=== PATIENT | male | born 1960 | race American Indian/Alaskan Native ===

== ENCOUNTER 2016-06-20 18:09 | Inpatient (IN) | payer MEDICAID ==
[2016-06-20 18:09] VITALS: BMI 25.8
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
[2016-06-20 19:13] LABS: BASO # 0.1 K/uL (0.0-0.2); BASO % 1.3 % (0.0-2.0); EOS # 0.1 K/uL (0.0-0.7); EOS % 1.5 % (0.0-4.0); HEMATOCRIT 35.4 % (35.0-51.0); LYMPH # 2.4 K/uL (1.0-4.3); LYMPH % 30.5 % (20.0-40.0); MEAN CELL VOLUME 93.7 fL (80.0-94.0); MEAN CORPUSCULAR HEMOGLOBIN 31.4 pg (27.0-31.0); MEAN CORPUSCULAR HGB CONC 33.5 g/dL (33.0-37.0); MONO # 1.2 K/uL (0.0-0.8); MONO % 14.8 % (0.0-10.0); RED CELL DISTRIBUTION WIDTH 14.3 % (11.5-14.5); WHITE BLOOD COUNT 7.9 K/uL (4.8-10.8)
[2016-06-20 19:29] LABS: INR 0.9
[2016-06-20 19:57] LABS: CHLORIDE 100 mmol/L (98-107)
[2016-06-20 19:58] LABS: POTASSIUM 3.4 mmol/L (3.6-5.2); SODIUM 147 mmol/L (132-148)
[2016-06-20 20:00] LABS: ALB/GLOB RATIO 1.2 (1.0-2.1); ALKALINE PHOSPHATASE 69 U/L (38-126); AST/SGOT 144 U/L (17-59); BILIRUBIN,TOTAL 0.3 mg/dL (0.2-1.3); BLOOD UREA NITROGEN 14 mg/dL (9-20); CARBON DIOXIDE 27 mmol/L (22-30); GFR AFRICAN-AMERICAN > 60
[2016-06-20 20:01] LABS: ALT/SGPT 144 U/L (21-72); CALCIUM 8.7 mg/dl (8.6-10.4); GLUCOSE,RANDOM 99 mg/dL (75-110)
[2016-06-20] MEDS ORDERED: Silver Sulfadiazine 1% Cream (20 gm) ONE (21:32)
[2016-06-20 21:38] LABS: ALCOHOL SERUM 60 mg/dl (0-10)
[2016-06-20] MEDS ORDERED: Silver Sulfadiazine 1% Cream (20 gm) TOP STA (22:07)
[2016-06-21] MEDS: HYDROmorphone 1 mg/ml ISec IVP PRN ×6 (00:01→22:36)
[2016-06-21] MEDS: Ciprofloxacin 400mg/200ml D5W 200 ML IVPB SCH ×3 (00:43→22:40)
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
[2016-06-21 08:34] LABS: CHLORIDE 100 mmol/L (98-107)
[2016-06-21 08:35] LABS: POTASSIUM 3.1 mmol/L (3.6-5.2); SODIUM 143 mmol/L (132-148)
[2016-06-21 08:37] LABS: ALB/GLOB RATIO 1.1 (1.0-2.1); AST/SGOT 83 U/L (17-59); BILIRUBIN,TOTAL < 0.1 mg/dL (0.2-1.3); CARBON DIOXIDE 31 mmol/L (22-30); GFR AFRICAN-AMERICAN > 60; TOTAL PROTEIN 6.1 g/dL (6.3-8.3)
[2016-06-21 08:38] LABS: ALKALINE PHOSPHATASE 108 U/L (38-126); ALT/SGPT 117 U/L (21-72); BLOOD UREA NITROGEN 18 mg/dL (9-20); CALCIUM 8.2 mg/dl (8.6-10.4); GLUCOSE,RANDOM 94 mg/dL (75-110); MAGNESIUM 1.8 mg/dL (1.6-2.3)
--- NOTE | 2016-06-21 09:19 | RAD ---
PROCEDURE: CHEST RADIOGRAPH, 1 VIEW HISTORY: Chest pain COMPARISON: 05/22/2016 FINDINGS: LUNGS: The lungs are clear. PLEURA: No pneumothorax or pleural fluid seen. CARDIOVASCULAR: The heart is normal in size. The hilar and mediastinal configuration is normal. OSSEOUS STRUCTURES: No significant abnormalities. VISUALIZED UPPER ABDOMEN: Normal. OTHER FINDINGS: None. IMPRESSION: No active pulmonary disease.
[2016-06-21] MEDS ORDERED: Potassium Chloride 20 mEq ER Tab PO ONE (11:15)
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
[2016-06-21 14:34] LABS: BASO % 0.4 % (0.0-2.0); EOS # 0.2 K/uL (0.0-0.7); EOS % 3.2 % (0.0-4.0); HEMATOCRIT 30.3 % (35.0-51.0); LYMPH # 2.2 K/uL (1.0-4.3); LYMPH % 35.5 % (20.0-40.0); MEAN CELL VOLUME 94.2 fL (80.0-94.0); MEAN CORPUSCULAR HEMOGLOBIN 32.6 pg (27.0-31.0); MEAN CORPUSCULAR HGB CONC 34.6 g/dL (33.0-37.0); MEAN PLATELET VOLUME 6.8 fL (7.2-11.7); MONO # 0.8 K/uL (0.0-0.8); MONO % 12.4 % (0.0-10.0); WHITE BLOOD COUNT 6.1 K/uL (4.8-10.8)
[2016-06-21] MEDS: Silver Sulfadiazine 1% Cream (20 gm) TOP SCH (18:00)
[2016-06-22] MEDS: HYDROmorphone 1 mg/ml ISec IVP PRN ×3 (06:40→20:15)
[2016-06-22] MEDS ORDERED: Potassium Chloride 20 mEq ER Tab PO ONE ×2 (09:45→11:00)
[2016-06-22] MEDS: Silver Sulfadiazine 1% Cream (20 gm) TOP SCH ×2 (10:06→18:00)
[2016-06-22] MEDS ORDERED: Midazolam 2 MG/2 ML VIAL ONE (11:07)
[2016-06-22] MEDS ORDERED: Propofol 10 mg/ml Inj (20 ML) ONE (11:08)
[2016-06-22] MEDS ORDERED: Lactated Ringer's 1,000 ML IV ONE ×2 (11:15→12:45)
[2016-06-22] MEDS: Ciprofloxacin 400mg/200ml D5W 200 ML IVPB SCH ×2 (11:30→22:48)
--- NOTE | 2016-06-22 12:39 | CARD ---
APPROVED REPORT EKG Measurement Heart [id number] <Conclusion> Normal sinus rhythm Normal ECG
[2016-06-22] MEDS: HYDROmorphone 0.5 mg/0.5 ml ISec IVP PRN ×3 (12:57→13:34)
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
[2016-06-22] MEDS: Lactated Ringer's 1,000 ML IV SCH ×2 (15:14→20:30)
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
[2016-06-23] MEDS: HYDROmorphone 1 mg/ml ISec IVP PRN ×5 (00:24→20:50)
[2016-06-23] MEDS: Lactated Ringer's 1,000 ML IV SCH ×3 (04:26→20:15)
[2016-06-23 07:41] LABS: BASO % 0.4 % (0.0-2.0); EOS # 0.2 K/uL (0.0-0.7); EOS % 3.5 % (0.0-4.0); HEMATOCRIT 32.3 % (35.0-51.0); LYMPH # 2.3 K/uL (1.0-4.3); LYMPH % 34.6 % (20.0-40.0); MEAN CELL VOLUME 94.5 fL (80.0-94.0); MEAN CORPUSCULAR HEMOGLOBIN 32.7 pg (27.0-31.0); MEAN CORPUSCULAR HGB CONC 34.6 g/dL (33.0-37.0); MEAN PLATELET VOLUME 6.8 fL (7.2-11.7); MONO # 0.6 K/uL (0.0-0.8); MONO % 8.5 % (0.0-10.0); RED CELL DISTRIBUTION WIDTH 13.7 % (11.5-14.5); WHITE BLOOD COUNT 6.8 K/uL (4.8-10.8)
[2016-06-23 07:46] LABS: CHLORIDE 99 mmol/L (98-107)
[2016-06-23 07:47] LABS: POTASSIUM 4.2 mmol/L (3.6-5.2); SODIUM 140 mmol/L (132-148)
[2016-06-23 07:49] LABS: ALB/GLOB RATIO 1.1 (1.0-2.1); BILIRUBIN,TOTAL < 0.1 mg/dL (0.2-1.3); CARBON DIOXIDE 30 mmol/L (22-30); GFR AFRICAN-AMERICAN > 60; TOTAL PROTEIN 5.8 g/dL (6.3-8.3)
[2016-06-23 07:50] LABS: ALKALINE PHOSPHATASE 81 U/L (38-126); ALT/SGPT 93 U/L (21-72); AST/SGOT 59 U/L (17-59); BLOOD UREA NITROGEN 13 mg/dL (9-20); CALCIUM 7.9 mg/dl (8.6-10.4); GLUCOSE,RANDOM 96 mg/dL (75-110)
[2016-06-23] MEDS: Silver Sulfadiazine 1% Cream (20 gm) TOP SCH ×2 (09:17→18:00)
[2016-06-23] MEDS: Ciprofloxacin 400mg/200ml D5W 200 ML IVPB SCH ×2 (11:20→22:54)
[2016-06-23] MEDS ORDERED: Propofol 10 mg/ml Inj (20 ML) ONE (14:00)
[2016-06-23] MEDS ORDERED: Midazolam 2 MG/2 ML VIAL ONE (14:00)
[2016-06-23] MEDS ORDERED: Pneumococcal 23-Valent Vaccine IM ONE (14:00)
[2016-06-23] MEDS ORDERED: Influenza Virus Vaccine 45 mcg/0.5 ml Syr IM ONE (14:00)
[2016-06-23] MEDS ORDERED: Lactated Ringer's 1,000 ML IV ONE (14:20)
[2016-06-23] MEDS ORDERED: Phenylephrine 10 mg/ml Inj ONE (14:49)
[2016-06-23] MEDS ORDERED: ePHEDrine 50 mg/ml Inj ONE (14:49)
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
[2016-06-23] MEDS ORDERED: HYDROmorphone 0.5 mg/0.5 ml ISec ONE (15:16)
[2016-06-23] MEDS: HYDROmorphone 0.5 mg/0.5 ml ISec IVP PRN ×3 (15:18→15:45)
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
[2016-06-24] MEDS: HYDROmorphone 1 mg/ml ISec IVP PRN ×5 (00:54→22:30)
[2016-06-24] MEDS: Lactated Ringer's 1,000 ML IV SCH ×4 (04:35→20:35)
[2016-06-24 06:41] LABS: BASO # 0.1 K/uL (0.0-0.2); BASO % 0.7 % (0.0-2.0); EOS # 0.3 K/uL (0.0-0.7); EOS % 3.3 % (0.0-4.0); HEMATOCRIT 32.1 % (35.0-51.0); LYMPH # 2.5 K/uL (1.0-4.3); LYMPH % 32.1 % (20.0-40.0); MEAN CELL VOLUME 93.8 fL (80.0-94.0); MEAN CORPUSCULAR HEMOGLOBIN 33.1 pg (27.0-31.0); MEAN CORPUSCULAR HGB CONC 35.3 g/dL (33.0-37.0); MEAN PLATELET VOLUME 7.2 fL (7.2-11.7); MONO # 0.8 K/uL (0.0-0.8); MONO % 10.1 % (0.0-10.0); WHITE BLOOD COUNT 7.7 K/uL (4.8-10.8)
[2016-06-24 06:43] LABS: CHLORIDE 96 mmol/L (98-107); POTASSIUM 4.2 mmol/L (3.6-5.2); SODIUM 139 mmol/L (132-148)
[2016-06-24 06:45] LABS: AST/SGOT 57 U/L (17-59); BILIRUBIN,TOTAL 0.5 mg/dL (0.2-1.3); CARBON DIOXIDE 31 mmol/L (22-30); GFR AFRICAN-AMERICAN > 60
[2016-06-24 06:46] LABS: ALKALINE PHOSPHATASE 81 U/L (38-126); ALT/SGPT 85 U/L (21-72); BLOOD UREA NITROGEN 15 mg/dL (9-20); GLUCOSE,RANDOM 107 mg/dL (75-110); TOTAL PROTEIN 6.5 g/dL (6.3-8.3)
[2016-06-24 06:47] LABS: CALCIUM 7.8 mg/dl (8.6-10.4)
[2016-06-24] MEDS: Silver Sulfadiazine 1% Cream (20 gm) TOP SCH ×2 (09:38→18:00)
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
[2016-06-24] MEDS: Ciprofloxacin 400mg/200ml D5W 200 ML IVPB SCH ×2 (11:30→22:58)
[2016-06-24] MEDS ORDERED: Lactated Ringer's 1,000 ML IV ONE ×2 (14:10)
[2016-06-24] MEDS ORDERED: Propofol 10 mg/ml Inj (20 ML) ONE (14:31)
[2016-06-24] MEDS ORDERED: Rocuronium 10 mg/ml (5 ml) ONE (14:31)
[2016-06-24] MEDS ORDERED: Neostigmine Methylsulfate 3mg/3ml Syringe IV ONE (15:11)
[2016-06-24] MEDS ORDERED: HYDROmorphone 0.5 mg/0.5 ml ISec IVP PRN (15:19)
[2016-06-24] MEDS: HYDROmorphone 0.5 mg/0.5 ml ISec IVP PRN (17:35)
[2016-06-24 22:38] LABS: INR 0.9
[2016-06-25] MEDS: HYDROmorphone 1 mg/ml ISec IVP PRN ×4 (01:34→14:54)
[2016-06-25] MEDS: Lactated Ringer's 1,000 ML IV SCH ×3 (04:45→13:01)
[2016-06-25 08:09] LABS: BASO % 0.6 % (0.0-2.0); EOS # 0.3 K/uL (0.0-0.7); HEMATOCRIT 32.6 % (35.0-51.0); LYMPH # 2.6 K/uL (1.0-4.3); LYMPH % 39.5 % (20.0-40.0); MEAN CELL VOLUME 94.7 fL (80.0-94.0); MEAN CORPUSCULAR HEMOGLOBIN 32.6 pg (27.0-31.0); MEAN CORPUSCULAR HGB CONC 34.4 g/dL (33.0-37.0); MEAN PLATELET VOLUME 7.3 fL (7.2-11.7); MONO # 0.5 K/uL (0.0-0.8); RED CELL DISTRIBUTION WIDTH 14.1 % (11.5-14.5); WHITE BLOOD COUNT 6.5 K/uL (4.8-10.8)
[2016-06-25 08:18] LABS: CHLORIDE 98 mmol/L (98-107); POTASSIUM 4.2 mmol/L (3.6-5.2); SODIUM 140 mmol/L (132-148)
[2016-06-25 08:20] LABS: ALB/GLOB RATIO 1.1 (1.0-2.1); AST/SGOT 53 U/L (17-59); BILIRUBIN,TOTAL < 0.1 mg/dL (0.2-1.3); CARBON DIOXIDE 30 mmol/L (22-30); GFR AFRICAN-AMERICAN > 60; TOTAL PROTEIN 6.3 g/dL (6.3-8.3)
[2016-06-25 08:21] LABS: ALKALINE PHOSPHATASE 70 U/L (38-126); ALT/SGPT 83 U/L (21-72); BLOOD UREA NITROGEN 12 mg/dL (9-20); CALCIUM 8.5 mg/dl (8.6-10.4); GLUCOSE,RANDOM 103 mg/dL (75-110)
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
[2016-06-25] MEDS: Silver Sulfadiazine 1% Cream (20 gm) TOP SCH ×2 (10:16→18:00)
[2016-06-25] MEDS: Ciprofloxacin 400mg/200ml D5W 200 ML IVPB SCH ×2 (11:30→11:42)
[2016-06-25] MEDS ORDERED: Lactated Ringer's 1,000 ML IV ONE ×2 (12:00→14:30)
[2016-06-25] MEDS ORDERED: Midazolam 2 MG/2 ML VIAL ONE (12:01)
[2016-06-25] MEDS ORDERED: Propofol 10 mg/ml Inj (20 ML) ONE (12:01)
[2016-06-25] MEDS: HYDROmorphone 0.5 mg/0.5 ml ISec IVP PRN ×4 (13:22→14:05)
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
[2016-06-25] MEDS ORDERED: HYDROmorphone 1 mg/ml ISec IVP STA (15:51)
[2016-06-25] MEDS ORDERED: HYDROmorphone 1 mg/ml ISec IVP PRN (16:58)
[2016-06-26] MEDS: Silver Sulfadiazine 1% Cream (20 gm) TOP SCH ×2 (10:04→18:54)
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
[2016-06-26 17:09] LABS: BASO % 0.6 % (0.0-2.0); EOS # 0.2 K/uL (0.0-0.7); EOS % 2.4 % (0.0-4.0); LYMPH # 2.4 K/uL (1.0-4.3); LYMPH % 29.6 % (20.0-40.0); MEAN CELL VOLUME 95.5 fL (80.0-94.0); MEAN CORPUSCULAR HEMOGLOBIN 32.2 pg (27.0-31.0); MEAN CORPUSCULAR HGB CONC 33.7 g/dL (33.0-37.0); MEAN PLATELET VOLUME 7.4 fL (7.2-11.7); MONO # 0.9 K/uL (0.0-0.8); MONO % 11.2 % (0.0-10.0); RED CELL DISTRIBUTION WIDTH 14.3 % (11.5-14.5); WHITE BLOOD COUNT 8.1 K/uL (4.8-10.8)
[2016-06-26 17:16] LABS: CHLORIDE 95 mmol/L (98-107); POTASSIUM 4.5 mmol/L (3.6-5.2); SODIUM 139 mmol/L (132-148)
[2016-06-26 17:18] LABS: GFR AFRICAN-AMERICAN > 60
[2016-06-26 17:19] LABS: ALB/GLOB RATIO 1.1 (1.0-2.1); ALKALINE PHOSPHATASE 63 U/L (38-126); ALT/SGPT 74 U/L (21-72); AST/SGOT 55 U/L (17-59); BILIRUBIN,TOTAL 0.3 mg/dL (0.2-1.3); BLOOD UREA NITROGEN 13 mg/dL (9-20); CARBON DIOXIDE 30 mmol/L (22-30); GLUCOSE,RANDOM 86 mg/dL (75-110); TOTAL PROTEIN 6.8 g/dL (6.3-8.3)
[2016-06-26 17:20] LABS: CALCIUM 8.8 mg/dl (8.6-10.4)
[2016-06-26] MEDS ORDERED: Lactated Ringer's 1,000 ML IV ONE ×2 (17:45→18:30)
[2016-06-26] MEDS ORDERED: Midazolam 2 MG/2 ML VIAL ONE (17:50)
[2016-06-26] MEDS ORDERED: Propofol 10 mg/ml Inj (20 ML) ONE (17:50)
[2016-06-26] MEDS: HYDROmorphone 0.5 mg/0.5 ml ISec IVP PRN ×2 (18:40→18:55)
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
[2016-06-27 08:13] LABS: BASO % 0.4 % (0.0-2.0); EOS # 0.3 K/uL (0.0-0.7); EOS % 4.6 % (0.0-4.0); HEMATOCRIT 32.5 % (35.0-51.0); LYMPH % 33.4 % (20.0-40.0); MEAN CELL VOLUME 93.9 fL (80.0-94.0); MEAN CORPUSCULAR HEMOGLOBIN 31.7 pg (27.0-31.0); MEAN CORPUSCULAR HGB CONC 33.8 g/dL (33.0-37.0); MEAN PLATELET VOLUME 7.2 fL (7.2-11.7); MONO # 0.8 K/uL (0.0-0.8); MONO % 12.8 % (0.0-10.0); NRBC % 0.1 % (0.0-2.0); RED CELL DISTRIBUTION WIDTH 13.9 % (11.5-14.5); WHITE BLOOD COUNT 6.1 K/uL (4.8-10.8)
[2016-06-27 08:47] LABS: CHLORIDE 94 mmol/L (98-107); POTASSIUM 4.3 mmol/L (3.6-5.2); SODIUM 137 mmol/L (132-148)
[2016-06-27 08:49] LABS: ALB/GLOB RATIO 1.1 (1.0-2.1); ALKALINE PHOSPHATASE 60 U/L (38-126); ALT/SGPT 74 U/L (21-72); AST/SGOT 58 U/L (17-59); BILIRUBIN,TOTAL 0.2 mg/dL (0.2-1.3); BLOOD UREA NITROGEN 12 mg/dL (9-20); CARBON DIOXIDE 30 mmol/L (22-30); GFR AFRICAN-AMERICAN > 60; TOTAL PROTEIN 6.6 g/dL (6.3-8.3)
[2016-06-27 08:50] LABS: CALCIUM 8.5 mg/dl (8.6-10.4); GLUCOSE,RANDOM 108 mg/dL (75-110)
[2016-06-27] MEDS: Silver Sulfadiazine 1% Cream (20 gm) TOP SCH ×2 (14:50→17:21)
[2016-06-28 08:42] LABS: BASO % 0.6 % (0.0-2.0); EOS # 0.3 K/uL (0.0-0.7); EOS % 4.4 % (0.0-4.0); HEMATOCRIT 32.3 % (35.0-51.0); LYMPH # 2.4 K/uL (1.0-4.3); MEAN CELL VOLUME 93.6 fL (80.0-94.0); MEAN CORPUSCULAR HEMOGLOBIN 32.1 pg (27.0-31.0); MEAN CORPUSCULAR HGB CONC 34.3 g/dL (33.0-37.0); MEAN PLATELET VOLUME 7.3 fL (7.2-11.7); MONO # 0.7 K/uL (0.0-0.8); MONO % 10.8 % (0.0-10.0); RED CELL DISTRIBUTION WIDTH 13.7 % (11.5-14.5); WHITE BLOOD COUNT 6.1 K/uL (4.8-10.8)
[2016-06-28 08:56] LABS: CHLORIDE 95 mmol/L (98-107); POTASSIUM 4.2 mmol/L (3.6-5.2); SODIUM 139 mmol/L (132-148)
[2016-06-28 08:58] LABS: BILIRUBIN,TOTAL < 0.1 mg/dL (0.2-1.3); GFR AFRICAN-AMERICAN > 60
[2016-06-28 08:59] LABS: ALB/GLOB RATIO 1.1 (1.0-2.1); ALKALINE PHOSPHATASE 88 U/L (38-126); ALT/SGPT 84 U/L (21-72); AST/SGOT 80 U/L (17-59); BLOOD UREA NITROGEN 14 mg/dL (9-20); CARBON DIOXIDE 30 mmol/L (22-30); GLUCOSE,RANDOM 114 mg/dL (75-110); TOTAL PROTEIN 6.7 g/dL (6.3-8.3)
[2016-06-28 09:00] LABS: CALCIUM 8.5 mg/dl (8.6-10.4)
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
[2016-06-28] MEDS: Silver Sulfadiazine 1% Cream (20 gm) TOP SCH ×2 (10:37→17:35)
[2016-06-29 06:22] LABS: BASO % 0.5 % (0.0-2.0); EOS # 0.3 K/uL (0.0-0.7); EOS % 4.6 % (0.0-4.0); HEMATOCRIT 32.2 % (35.0-51.0); LYMPH # 2.1 K/uL (1.0-4.3); LYMPH % 34.4 % (20.0-40.0); MEAN CELL VOLUME 93.9 fL (80.0-94.0); MEAN CORPUSCULAR HEMOGLOBIN 31.8 pg (27.0-31.0); MEAN CORPUSCULAR HGB CONC 33.9 g/dL (33.0-37.0); MEAN PLATELET VOLUME 6.8 fL (7.2-11.7); MONO # 1.2 K/uL (0.0-0.8); RED CELL DISTRIBUTION WIDTH 13.7 % (11.5-14.5); WHITE BLOOD COUNT 6.2 K/uL (4.8-10.8)
[2016-06-29 06:29] LABS: CHLORIDE 95 mmol/L (98-107)
[2016-06-29 06:30] LABS: POTASSIUM 4.5 mmol/L (3.6-5.2); SODIUM 137 mmol/L (132-148)
[2016-06-29 06:32] LABS: ALB/GLOB RATIO 1.1 (1.0-2.1); ALKALINE PHOSPHATASE 91 U/L (38-126); AST/SGOT 75 U/L (17-59); BILIRUBIN,TOTAL 0.4 mg/dL (0.2-1.3); BLOOD UREA NITROGEN 18 mg/dL (9-20); CARBON DIOXIDE 31 mmol/L (22-30); GFR AFRICAN-AMERICAN > 60; GLUCOSE,RANDOM 104 mg/dL (75-110); PHOSPHOROUS 4.8 mg/dL (2.5-4.5); TOTAL PROTEIN 6.6 g/dL (6.3-8.3)
[2016-06-29 06:33] LABS: ALT/SGPT 92 U/L (21-72); CALCIUM 8.2 mg/dl (8.6-10.4); MAGNESIUM 1.8 mg/dL (1.6-2.3)
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
[2016-06-29] MEDS: Silver Sulfadiazine 1% Cream (20 gm) TOP SCH ×2 (09:05→17:14)
[2016-06-29] MEDS ORDERED: Midazolam 2 MG/2 ML VIAL ONE (14:45)
[2016-06-29] MEDS ORDERED: Propofol 10 mg/ml Inj (20 ML) ONE (14:45)
[2016-06-29] MEDS ORDERED: Lactated Ringer's 1,000 ML IV ONE (14:55)
[2016-06-29] MEDS ORDERED: HYDROmorphone 0.5 mg/0.5 ml ISec IVP PRN (15:45)
[2016-06-29] MEDS ORDERED: DiphenhydrAMINE 50 mg/ml Inj IVP PRN (15:45)
[2016-06-29] MEDS ORDERED: Dexamethasone 4 mg/1 ml IVP PRN (15:45)
[2016-06-29] MEDS: Lactated Ringer's 1,000 ML IV SCH ×2 (16:54→21:12)
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
[2016-06-30] MEDS: Lactated Ringer's 1,000 ML IV SCH ×4 (04:09→22:38)
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
[2016-06-30 08:25] LABS: BASO % 0.7 % (0.0-2.0); EOS # 0.3 K/uL (0.0-0.7); HEMATOCRIT 32.9 % (35.0-51.0); LYMPH # 2.2 K/uL (1.0-4.3); LYMPH % 38.4 % (20.0-40.0); MEAN CELL VOLUME 94.2 fL (80.0-94.0); MEAN CORPUSCULAR HEMOGLOBIN 31.5 pg (27.0-31.0); MEAN CORPUSCULAR HGB CONC 33.4 g/dL (33.0-37.0); MEAN PLATELET VOLUME 7.6 fL (7.2-11.7); MONO # 0.9 K/uL (0.0-0.8); MONO % 15.2 % (0.0-10.0); NRBC % 0.1 % (0.0-2.0); RED CELL DISTRIBUTION WIDTH 13.7 % (11.5-14.5); WHITE BLOOD COUNT 5.7 K/uL (4.8-10.8)
[2016-06-30 08:29] LABS: CHLORIDE 96 mmol/L (98-107); POTASSIUM 4.8 mmol/L (3.6-5.2); SODIUM 140 mmol/L (132-148)
[2016-06-30 08:31] LABS: ALB/GLOB RATIO 1.1 (1.0-2.1); AST/SGOT 67 U/L (17-59); BILIRUBIN,TOTAL < 0.1 mg/dL (0.2-1.3); CARBON DIOXIDE 31 mmol/L (22-30); GFR AFRICAN-AMERICAN > 60; TOTAL PROTEIN 6.7 g/dL (6.3-8.3)
[2016-06-30 08:32] LABS: ALKALINE PHOSPHATASE 80 U/L (38-126); ALT/SGPT 82 U/L (21-72); BLOOD UREA NITROGEN 17 mg/dL (9-20); CALCIUM 8.4 mg/dl (8.6-10.4); GLUCOSE,RANDOM 93 mg/dL (75-110); MAGNESIUM 1.8 mg/dL (1.6-2.3); PHOSPHOROUS 4.8 mg/dL (2.5-4.5)
[2016-06-30] MEDS: Silver Sulfadiazine 1% Cream (20 gm) TOP SCH ×2 (10:10→18:00)
[2016-06-30] MEDS ORDERED: Sodium Chloride 0.9% 1,000 ML IV ONE (16:04)
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
[2016-07-01 07:55] LABS: MAGNESIUM 1.8 mg/dL (1.6-2.3); PHOSPHOROUS 4.2 mg/dL (2.5-4.5)
[2016-07-01] MEDS: Silver Sulfadiazine 1% Cream (20 gm) TOP SCH ×2 (09:31→17:05)
[2016-07-01] MEDS ORDERED: Lactated Ringer's 1,000 ML IV ONE ×2 (13:54→15:19)
[2016-07-01] MEDS ORDERED: Propofol 10 mg/ml Inj (20 ML) ONE (13:55)
[2016-07-01] MEDS ORDERED: Midazolam 2 MG/2 ML VIAL ONE (14:00)
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
[2016-07-01] MEDS: Lactated Ringer's 1,000 ML IV SCH ×2 (17:02→17:03)
[2016-07-02] MEDS: Lactated Ringer's 1,000 ML IV SCH ×2 (04:37→04:54)
[2016-07-02 06:25] LABS: BASO % 0.7 % (0.0-2.0); EOS # 0.3 K/uL (0.0-0.7); EOS % 4.9 % (0.0-4.0); HEMATOCRIT 33.2 % (35.0-51.0); LYMPH # 2.6 K/uL (1.0-4.3); LYMPH % 37.5 % (20.0-40.0); MEAN CORPUSCULAR HEMOGLOBIN 31.8 pg (27.0-31.0); MEAN CORPUSCULAR HGB CONC 34.2 g/dL (33.0-37.0); MEAN PLATELET VOLUME 7.1 fL (7.2-11.7); MONO # 0.9 K/uL (0.0-0.8); MONO % 12.5 % (0.0-10.0); RED CELL DISTRIBUTION WIDTH 13.7 % (11.5-14.5); WHITE BLOOD COUNT 6.8 K/uL (4.8-10.8)
[2016-07-02 06:34] LABS: CHLORIDE 98 mmol/L (98-107); POTASSIUM 4.7 mmol/L (3.6-5.2); SODIUM 141 mmol/L (132-148)
[2016-07-02 06:36] LABS: ALB/GLOB RATIO 1.1 (1.0-2.1); AST/SGOT 70 U/L (17-59); BILIRUBIN,TOTAL < 0.1 mg/dL (0.2-1.3); CARBON DIOXIDE 28 mmol/L (22-30); GFR AFRICAN-AMERICAN > 60; TOTAL PROTEIN 6.9 g/dL (6.3-8.3)
[2016-07-02 06:37] LABS: ALKALINE PHOSPHATASE 74 U/L (38-126); ALT/SGPT 91 U/L (21-72); BLOOD UREA NITROGEN 15 mg/dL (9-20); CALCIUM 8.8 mg/dl (8.6-10.4); GLUCOSE,RANDOM 94 mg/dL (75-110); MAGNESIUM 1.7 mg/dL (1.6-2.3)
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
[2016-07-02] MEDS: Silver Sulfadiazine 1% Cream (20 gm) TOP SCH ×2 (10:30→17:47)
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
[2016-07-03] MEDS: Tigecycline 50 MG in Dextrose 5% In Water 100 ML IV SCH ×2 (07:44→19:20)
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
[2016-07-03 08:26] LABS: BASO # 0.1 K/uL (0.0-0.2); BASO % 1.3 % (0.0-2.0); EOS # 0.3 K/uL (0.0-0.7); EOS % 4.2 % (0.0-4.0); HEMATOCRIT 34.5 % (35.0-51.0); LYMPH # 2.8 K/uL (1.0-4.3); LYMPH % 35.1 % (20.0-40.0); MEAN CELL VOLUME 92.6 fL (80.0-94.0); MEAN CORPUSCULAR HEMOGLOBIN 31.6 pg (27.0-31.0); MEAN CORPUSCULAR HGB CONC 34.1 g/dL (33.0-37.0); MEAN PLATELET VOLUME 7.3 fL (7.2-11.7); MONO % 12.7 % (0.0-10.0); RED CELL DISTRIBUTION WIDTH 13.8 % (11.5-14.5)
[2016-07-03 08:54] LABS: CHLORIDE 96 mmol/L (98-107); SODIUM 140 mmol/L (132-148)
[2016-07-03 08:55] LABS: POTASSIUM 4.6 mmol/L (3.6-5.2)
[2016-07-03 08:57] LABS: ALB/GLOB RATIO 1.1 (1.0-2.1); ALKALINE PHOSPHATASE 86 U/L (38-126); ALT/SGPT 109 U/L (21-72); AST/SGOT 92 U/L (17-59); BILIRUBIN,TOTAL 0.1 mg/dL (0.2-1.3); BLOOD UREA NITROGEN 21 mg/dL (9-20); CARBON DIOXIDE 28 mmol/L (22-30); GFR AFRICAN-AMERICAN > 60; GLUCOSE,RANDOM 87 mg/dL (75-110); TOTAL PROTEIN 7.4 g/dL (6.3-8.3)
[2016-07-03 08:58] LABS: CALCIUM 8.9 mg/dl (8.6-10.4); MAGNESIUM 1.8 mg/dL (1.6-2.3); PHOSPHOROUS 5.3 mg/dL (2.5-4.5)
[2016-07-03] MEDS: Silver Sulfadiazine 1% Cream (20 gm) TOP SCH ×2 (10:05→17:24)
[2016-07-03] MEDS ORDERED: Propofol 10 mg/ml Inj (20 ML) ONE ×2 (13:39→14:20)
[2016-07-03] MEDS ORDERED: Midazolam 2 MG/2 ML VIAL ONE (13:39)
[2016-07-03] MEDS ORDERED: Lactated Ringer's 1,000 ML IV ONE (13:40)
[2016-07-03] MEDS ORDERED: Rocuronium 10 mg/ml (5 ml) ONE (13:42)
[2016-07-03] MEDS ORDERED: ePHEDrine 50 mg/ml Inj ONE (14:30)
[2016-07-03] MEDS ORDERED: Neostigmine Methylsulfate 3mg/3ml Syringe IV ONE (14:38)
[2016-07-03] MEDS ORDERED: Sodium Chloride 0.9% 1,000 ML IV ONE (14:50)
[2016-07-03] MEDS ORDERED: HYDROmorphone 0.5 mg/0.5 ml ISec IVP PRN (14:51)
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
[2016-07-03] MEDS ORDERED: HYDROmorphone 0.5 mg/0.5 ml ISec ONE (15:15)
--- NOTE | 2016-07-03 15:50 | CP.PCM.PN ---
Subjective - Date & Time of Evaluation Date of Evaluation: 07/03/16 Time of Evaluation: 08:00 - Subjective Subjective: going to or dr mays on board IV tygacil in progress no new cultures Objective - Vital Signs/Intake and Output Vital Signs (last 24 hours): Temp Pulse Resp BP Pulse Ox 98.8 F 78 15 110/56 L 98 07/03/16 14:50 07/03/16 14:50 07/03/16 14:50 07/03/16 14:50 07/03/16 14:50 Intake and Output: 07/03/16 07/03/16 06:59 18:59 Intake Total 0 Output Total 750 Balance -750 - Medications Medications: Current Medications Heparin Sodium (Porcine) (Heparin) 5,000 units SC Q12H [facility] Last Admin: 06/21/16 11:31 Dose: 5,000 units Hydromorphone HCl (Dilaudid) 3 mg IVP Q3H PRN PRN Reason: Pain, severe (8-10) Last Admin: 07/03/16 06:12 Dose: 3 mg Hydromorphone HCl (Dilaudid) 0.5 mg IVP Q15M PRN PRN Reason: Pain, moderate (4-7) Stop: 07/03/16 16:51 Last Admin: 07/03/16 15:15 Dose: 0.5 mg Tigecycline 50 mg/ Dextrose 100 mls @ 100 mls/hr IV Q12H [facility] Last Admin: 07/03/16 07:44 Dose: 100 mls/hr Pantoprazole Sodium (Protonix Inj) 40 mg IVP DAILY [facility] Last Admin: 07/03/16 10:04 Dose: 40 mg Silver Sulfadiazine (Silvadene 1% 20 Gm) 1 ea TOP BID [facility] Last Admin: 07/03/16 10:05 Dose: 1 applic Thiamine HCl (Vitamin B1 Tab) 100 mg PO DAILY [facility] Last Admin: 07/03/16 10:04 Dose: 100 mg - Labs Labs: 07/03/16 08:15 07/03/16 08:15 PT 10.5 SECONDS (9.7-12.2) 06/24/16 22:20 INR 0.9 06/24/16 22:20 APTT 33 SECONDS (21-34) 06/24/16 22:20 - Constitutional Appears: Non-toxic, Chronically Ill - Head Exam Head Exam: NORMOCEPHALIC - Eye Exam Eye Exam: PERRL. absent: Scleral icterus - ENT Exam ENT Exam: Mucous Membranes Dry - Neck Exam Neck Exam: absent: Lymphadenopathy - Respiratory Exam Respiratory Exam: Decreased Breath Sounds - Cardiovascular Exam Cardiovascular Exam: REGULAR RHYTHM - GI/Abdominal Exam GI & Abdominal Exam: Distended, Soft Assessment and Plan (1) Alcohol dependence Status: Acute (2) Alcohol intoxication Status: Acute (3) Chronic wound of extremity Status: Acute (4) Elevated LFTs Status: Acute (5) Hypertension Status: Acute (6) Cellulitis and abscess of buttock Status: Acute
[2016-07-03] MEDS: Oxycodone/Acetaminophen 5/325 mg Tab PO PRN (21:59)
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
[2016-07-04] MEDS: Tigecycline 50 MG in Dextrose 5% In Water 100 ML IV SCH ×2 (07:06→19:50)
[2016-07-04 07:56] LABS: BASO % 0.7 % (0.0-2.0); EOS # 0.4 K/uL (0.0-0.7); EOS % 6.2 % (0.0-4.0); LYMPH # 2.6 K/uL (1.0-4.3); LYMPH % 41.9 % (20.0-40.0); MEAN CELL VOLUME 93.6 fL (80.0-94.0); MEAN CORPUSCULAR HGB CONC 34.2 g/dL (33.0-37.0); MEAN PLATELET VOLUME 7.1 fL (7.2-11.7); MONO % 15.6 % (0.0-10.0); RED CELL DISTRIBUTION WIDTH 13.7 % (11.5-14.5); WHITE BLOOD COUNT 6.1 K/uL (4.8-10.8)
[2016-07-04 08:07] LABS: CHLORIDE 98 mmol/L (98-107); POTASSIUM 4.1 mmol/L (3.6-5.2)
[2016-07-04 08:09] LABS: ALB/GLOB RATIO 1.1 (1.0-2.1); ALKALINE PHOSPHATASE 87 U/L (38-126); ALT/SGPT 100 U/L (21-72); AST/SGOT 75 U/L (17-59); BILIRUBIN,TOTAL 0.1 mg/dL (0.2-1.3); BLOOD UREA NITROGEN 22 mg/dL (9-20); CARBON DIOXIDE 25 mmol/L (22-30); GFR AFRICAN-AMERICAN > 60; GLUCOSE,RANDOM 84 mg/dL (75-110)
[2016-07-04 08:10] LABS: CALCIUM 8.4 mg/dl (8.6-10.4); MAGNESIUM 1.8 mg/dL (1.6-2.3); PHOSPHOROUS 4.3 mg/dL (2.5-4.5)
[2016-07-04 08:20] LABS: SODIUM 139 mmol/L (132-148)
[2016-07-04] MEDS: Oxycodone/Acetaminophen 5/325 mg Tab PO PRN ×2 (08:57→22:52)
[2016-07-04] MEDS: Silver Sulfadiazine 1% Cream (20 gm) TOP SCH ×2 (10:00→17:44)
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
[2016-07-05 06:55] LABS: CHLORIDE 97 mmol/L (98-107); POTASSIUM 4.6 mmol/L (3.6-5.2); SODIUM 138 mmol/L (132-148)
[2016-07-05 06:57] LABS: ALB/GLOB RATIO 1.1 (1.0-2.1); ALKALINE PHOSPHATASE 90 U/L (38-126); AST/SGOT 66 U/L (17-59); BILIRUBIN,TOTAL 0.5 mg/dL (0.2-1.3); BLOOD UREA NITROGEN 26 mg/dL (9-20); CARBON DIOXIDE 27 mmol/L (22-30); GFR AFRICAN-AMERICAN > 60
[2016-07-05 06:58] LABS: ALT/SGPT 96 U/L (21-72); CALCIUM 8.4 mg/dl (8.6-10.4); GLUCOSE,RANDOM 93 mg/dL (75-110); MAGNESIUM 1.9 mg/dL (1.6-2.3); PHOSPHOROUS 4.5 mg/dL (2.5-4.5)
[2016-07-05 07:02] LABS: BASO % 0.5 % (0.0-2.0); EOS # 0.4 K/uL (0.0-0.7); EOS % 6.3 % (0.0-4.0); HEMATOCRIT 34.9 % (35.0-51.0); LYMPH # 2.8 K/uL (1.0-4.3); LYMPH % 39.4 % (20.0-40.0); MEAN CELL VOLUME 93.3 fL (80.0-94.0); MEAN CORPUSCULAR HEMOGLOBIN 32.3 pg (27.0-31.0); MEAN CORPUSCULAR HGB CONC 34.6 g/dL (33.0-37.0); MONO # 1.1 K/uL (0.0-0.8); RED CELL DISTRIBUTION WIDTH 13.7 % (11.5-14.5); WHITE BLOOD COUNT 7.2 K/uL (4.8-10.8)
[2016-07-05] MEDS: Tigecycline 50 MG in Dextrose 5% In Water 100 ML IV SCH ×2 (11:25→21:13)
[2016-07-05] MEDS: Silver Sulfadiazine 1% Cream (20 gm) TOP SCH ×2 (11:26→18:25)
[2016-07-05] MEDS: Oxycodone/Acetaminophen 5/325 mg Tab PO PRN (14:10)
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
[2016-07-06 08:15] LABS: BASO # 0.1 K/uL (0.0-0.2); BASO % 0.7 % (0.0-2.0); EOS # 0.5 K/uL (0.0-0.7); EOS % 6.7 % (0.0-4.0); HEMATOCRIT 35.3 % (35.0-51.0); LYMPH # 3.2 K/uL (1.0-4.3); LYMPH % 40.2 % (20.0-40.0); MEAN CELL VOLUME 93.5 fL (80.0-94.0); MEAN CORPUSCULAR HEMOGLOBIN 32.2 pg (27.0-31.0); MEAN CORPUSCULAR HGB CONC 34.4 g/dL (33.0-37.0); MEAN PLATELET VOLUME 7.5 fL (7.2-11.7); MONO # 1.2 K/uL (0.0-0.8); MONO % 14.4 % (0.0-10.0); RED CELL DISTRIBUTION WIDTH 13.9 % (11.5-14.5)
[2016-07-06] MEDS: Tigecycline 50 MG in Dextrose 5% In Water 100 ML IV SCH ×2 (08:21→20:40)
[2016-07-06 08:34] LABS: CHLORIDE 98 mmol/L (98-107)
[2016-07-06 08:35] LABS: POTASSIUM 4.4 mmol/L (3.6-5.2); SODIUM 138 mmol/L (132-148)
[2016-07-06 08:37] LABS: ALKALINE PHOSPHATASE 85 U/L (38-126); AST/SGOT 51 U/L (17-59); BILIRUBIN,TOTAL 0.2 mg/dL (0.2-1.3); BLOOD UREA NITROGEN 25 mg/dL (9-20); CARBON DIOXIDE 27 mmol/L (22-30); GFR AFRICAN-AMERICAN > 60; TOTAL PROTEIN 7.2 g/dL (6.3-8.3)
[2016-07-06 08:38] LABS: ALT/SGPT 75 U/L (21-72); CALCIUM 8.9 mg/dl (8.6-10.4); GLUCOSE,RANDOM 89 mg/dL (75-110); MAGNESIUM 1.9 mg/dL (1.6-2.3); PHOSPHOROUS 4.4 mg/dL (2.5-4.5)
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
--- NOTE | 2016-07-06 12:30 | CP.PCM.PN ---
Subjective - Date & Time of Evaluation Date of Evaluation: 07/06/16 Time of Evaluation: 10:00 - Subjective Subjective: for or today rx renewed Objective - Vital Signs/Intake and Output Vital Signs (last 24 hours): Temp Pulse Resp BP Pulse Ox 98.2 F 67 20 119/69 98 07/06/16 00:30 07/06/16 00:30 07/06/16 00:30 07/06/16 00:30 07/06/16 00:30 Intake and Output: 07/06/16 07/06/16 06:59 18:59 Output Total 850 Balance -850 - Medications Medications: Current Medications Heparin Sodium (Porcine) (Heparin) 5,000 units SC Q12H [facility] Last Admin: 06/21/16 11:31 Dose: 5,000 units Hydromorphone HCl (Dilaudid) 3 mg IVP Q3H PRN PRN Reason: Pain, severe (8-10) Last Admin: 07/06/16 11:18 Dose: 3 mg Tigecycline 50 mg/ Dextrose 100 mls @ 100 mls/hr IV Q12H [facility] Last Admin: 07/06/16 08:21 Dose: 100 mls/hr Oxycodone/Acetaminophen (Percocet 5/325 Mg Tab) 1 tab PO Q6H PRN PRN Reason: Pain, severe (8-10) Last Admin: 07/05/16 14:10 Dose: 1 tab Silver Sulfadiazine (Silvadene 1% 20 Gm) 1 ea TOP BID [facility] Last Admin: 07/05/16 18:25 Dose: 1 applic - Labs Labs: 07/06/16 07:15 07/06/16 04:00 PT 10.5 SECONDS (9.7-12.2) 06/24/16 22:20 INR 0.9 06/24/16 22:20 APTT 33 SECONDS (21-34) 06/24/16 22:20 - Constitutional Appears: Non-toxic - Head Exam Head Exam: NORMOCEPHALIC - Eye Exam Eye Exam: PERRL. absent: Scleral icterus - ENT Exam ENT Exam: Mucous Membranes Dry - Neck Exam Neck Exam: absent: Lymphadenopathy - Respiratory Exam Respiratory Exam: Decreased Breath Sounds, Rhonchi - Cardiovascular Exam Cardiovascular Exam: REGULAR RHYTHM, +S1, +S2 - GI/Abdominal Exam GI & Abdominal Exam: Distended, Soft. absent: Tenderness - Exam Exam: NORMAL INSPECTION - Extremities Exam Extremities Exam: absent: Pedal Edema - Back Exam Back Exam: absent: CVA tenderness (L), CVA tenderness (R) Assessment and Plan (1) Alcohol dependence Status: Acute (2) Alcohol intoxication Status: Acute (3) Chronic wound of extremity Status: Acute (4) Elevated LFTs Status: Acute (5) Hypertension Status: Acute (6) Cellulitis and abscess of buttock Status: Acute
[2016-07-06] MEDS ORDERED: Midazolam 2 MG/2 ML VIAL ONE (13:50)
[2016-07-06] MEDS ORDERED: Propofol 10 mg/ml Inj (20 ML) ONE (13:50)
[2016-07-06] MEDS ORDERED: Lidocaine Hydrochloride 5 ML INJ ONE (13:51)
[2016-07-06] MEDS ORDERED: Rocuronium 10 mg/ml (5 ml) ONE (13:52)
[2016-07-06] MEDS ORDERED: Succinylcholine Chloride 20 mg/ml Syr (5 ml) IV ONE (13:52)
[2016-07-06] MEDS ORDERED: Mineral Oil Light Sterile 25 ml ONE (13:59)
[2016-07-06] MEDS ORDERED: Lactated Ringer's 1,000 ML IV ONE ×3 (14:05→15:40)
[2016-07-06] MEDS ORDERED: Phenylephrine 10 mg/ml Inj ONE (14:35)
[2016-07-06] MEDS ORDERED: Dakin's Topical 0.25%-Half Strength (480 ml) TOP ONE (14:35)
[2016-07-06] MEDS ORDERED: ePHEDrine 50 mg/ml Inj ONE (14:56)
[2016-07-06] MEDS: Silver Sulfadiazine 1% Cream (20 gm) TOP SCH ×2 (15:18→21:18)
[2016-07-06] MEDS ORDERED: Neostigmine Methylsulfate 3mg/3ml Syringe IV ONE (15:22)
[2016-07-06] MEDS: HYDROmorphone 0.5 mg/0.5 ml ISec IVP PRN ×2 (15:57→16:21)
[2016-07-06] MEDS: Oxycodone/Acetaminophen 5/325 mg Tab PO PRN (17:47)
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
[2016-07-06] MEDS ORDERED: Tramadol 25 mg PO ONE (20:52)
[2016-07-07] MEDS: Oxycodone/Acetaminophen 5/325 mg Tab PO PRN (02:19)
[2016-07-07] MEDS ORDERED: Oxycodone/Acetaminophen 5/325 mg Tab PO PRN (07:10)
[2016-07-07] MEDS: Tigecycline 50 MG in Dextrose 5% In Water 100 ML IV SCH ×2 (08:15→20:21)
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
[2016-07-07 11:09] LABS: BASO # 0.1 K/uL (0.0-0.2); BASO % 0.9 % (0.0-2.0); EOS # 0.2 K/uL (0.0-0.7); EOS % 2.3 % (0.0-4.0); HEMATOCRIT 39.5 % (35.0-51.0); LYMPH # 2.3 K/uL (1.0-4.3); LYMPH % 25.7 % (20.0-40.0); MEAN CELL VOLUME 92.6 fL (80.0-94.0); MEAN CORPUSCULAR HEMOGLOBIN 31.1 pg (27.0-31.0); MEAN CORPUSCULAR HGB CONC 33.6 g/dL (33.0-37.0); MEAN PLATELET VOLUME 7.5 fL (7.2-11.7); MONO % 10.8 % (0.0-10.0); RED CELL DISTRIBUTION WIDTH 13.6 % (11.5-14.5)
[2016-07-07 11:18] LABS: CHLORIDE 97 mmol/L (98-107); SODIUM 139 mmol/L (132-148)
[2016-07-07 11:20] LABS: AST/SGOT 56 U/L (17-59); BILIRUBIN,TOTAL 0.4 mg/dL (0.2-1.3); CARBON DIOXIDE 26 mmol/L (22-30); GFR AFRICAN-AMERICAN > 60; TOTAL PROTEIN 7.7 g/dL (6.3-8.3)
[2016-07-07 11:21] LABS: ALKALINE PHOSPHATASE 89 U/L (38-126); ALT/SGPT 80 U/L (21-72); BLOOD UREA NITROGEN 23 mg/dL (9-20); GLUCOSE,RANDOM 107 mg/dL (75-110); MAGNESIUM 1.9 mg/dL (1.6-2.3); PHOSPHOROUS 4.1 mg/dL (2.5-4.5)
[2016-07-08 07:21] LABS: BASO # 0.1 K/uL (0.0-0.2); BASO % 1.2 % (0.0-2.0); EOS # 0.5 K/uL (0.0-0.7); EOS % 6.5 % (0.0-4.0); HEMATOCRIT 36.8 % (35.0-51.0); LYMPH # 3.5 K/uL (1.0-4.3); MEAN CORPUSCULAR HEMOGLOBIN 31.7 pg (27.0-31.0); MEAN CORPUSCULAR HGB CONC 34.1 g/dL (33.0-37.0); MEAN PLATELET VOLUME 7.1 fL (7.2-11.7); MONO % 14.4 % (0.0-10.0); NRBC % 0.1 % (0.0-2.0); RED CELL DISTRIBUTION WIDTH 13.8 % (11.5-14.5); WHITE BLOOD COUNT 7.1 K/uL (4.8-10.8)
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
[2016-07-08 07:40] LABS: CHLORIDE 98 mmol/L (98-107); POTASSIUM 4.3 mmol/L (3.6-5.2); SODIUM 138 mmol/L (132-148)
[2016-07-08 07:42] LABS: BILIRUBIN,TOTAL 0.4 mg/dL (0.2-1.3); CARBON DIOXIDE 25 mmol/L (22-30); GFR AFRICAN-AMERICAN > 60
[2016-07-08 07:43] LABS: ALKALINE PHOSPHATASE 85 U/L (38-126); ALT/SGPT 75 U/L (21-72); AST/SGOT 62 U/L (17-59); BLOOD UREA NITROGEN 24 mg/dL (9-20); CALCIUM 8.8 mg/dl (8.6-10.4); GLUCOSE,RANDOM 85 mg/dL (75-110); PHOSPHOROUS 4.6 mg/dL (2.5-4.5); TOTAL PROTEIN 7.3 g/dL (6.3-8.3)
[2016-07-08] MEDS: Tigecycline 50 MG in Dextrose 5% In Water 100 ML IV SCH ×2 (08:52→20:00)
--- NOTE | 2016-07-08 15:09 | CP.PCM.PN ---
Subjective - Date & Time of Evaluation Date of Evaluation: 07/08/16 Time of Evaluation: 08:00 - Subjective Subjective: underwent several rounds of pulse irrigation / debridement of sacral wound with biopsy (sacral, buttock, back wound) with Dr. Alonso (initial debridement 06/26 Objective - Vital Signs/Intake and Output Vital Signs (last 24 hours): Temp Pulse Resp BP Pulse Ox 98.1 F 60 20 113/60 97 07/08/16 07:29 07/08/16 07:29 07/08/16 07:29 07/08/16 07:29 07/08/16 07:29 Intake and Output: 07/08/16 07/08/16 06:59 18:59 Intake Total 760 Output Total 150 Balance 610 - Medications Medications: Current Medications Heparin Sodium (Porcine) (Heparin) 5,000 units SC Q12H [facility] Last Admin: 07/08/16 11:00 Dose: 5,000 units Hydromorphone HCl (Dilaudid) 3 mg IVP Q3H PRN PRN Reason: Pain, severe (8-10) Last Admin: 07/08/16 12:55 Dose: 3 mg Tigecycline 50 mg/ Dextrose 100 mls @ 100 mls/hr IV Q12H [facility] Last Admin: 07/08/16 08:52 Dose: 100 mls/hr Oxycodone/Acetaminophen (Percocet 5/325 Mg Tab) 1 tab PO Q6H PRN PRN Reason: Pain, severe (8-10) Last Admin: 07/07/16 10:19 Dose: 1 tab - Labs Labs: 07/08/16 07:00 07/08/16 07:00 PT 10.5 SECONDS (9.7-12.2) 06/24/16 22:20 INR 0.9 06/24/16 22:20 APTT 33 SECONDS (21-34) 06/24/16 22:20 - Constitutional Appears: Non-toxic, Chronically Ill - Head Exam Head Exam: NORMOCEPHALIC - Eye Exam Eye Exam: PERRL. absent: Scleral icterus - ENT Exam ENT Exam: Mucous Membranes Dry - Neck Exam Neck Exam: absent: Lymphadenopathy - Respiratory Exam Respiratory Exam: Decreased Breath Sounds - Cardiovascular Exam Cardiovascular Exam: REGULAR RHYTHM - GI/Abdominal Exam GI & Abdominal Exam: Distended, Soft Assessment and Plan (1) Alcohol dependence Status: Acute (2) Alcohol intoxication Status: Acute (3) Chronic wound of extremity Status: Acute (4) Elevated LFTs Status: Acute (5) Hypertension Status: Acute (6) Cellulitis and abscess of buttock Status: Acute
[2016-07-09] MEDS: Tigecycline 50 MG in Dextrose 5% In Water 100 ML IV SCH ×2 (08:01→19:02)
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
[2016-07-09 11:28] LABS: BASO # 0.1 K/uL (0.0-0.2); EOS # 0.5 K/uL (0.0-0.7); EOS % 5.7 % (0.0-4.0); HEMATOCRIT 36.9 % (35.0-51.0); LYMPH # 3.5 K/uL (1.0-4.3); LYMPH % 40.2 % (20.0-40.0); MEAN CELL VOLUME 93.5 fL (80.0-94.0); MEAN CORPUSCULAR HEMOGLOBIN 31.8 pg (27.0-31.0); MEAN CORPUSCULAR HGB CONC 34.1 g/dL (33.0-37.0); MEAN PLATELET VOLUME 7.8 fL (7.2-11.7); MONO # 1.3 K/uL (0.0-0.8); MONO % 14.6 % (0.0-10.0); RED CELL DISTRIBUTION WIDTH 13.4 % (11.5-14.5); WHITE BLOOD COUNT 8.8 K/uL (4.8-10.8)
[2016-07-09 11:46] LABS: CHLORIDE 97 mmol/L (98-107)
[2016-07-09 11:47] LABS: POTASSIUM 3.8 mmol/L (3.6-5.2); SODIUM 137 mmol/L (132-148)
[2016-07-09 11:49] LABS: AST/SGOT 65 U/L (17-59); BILIRUBIN,TOTAL 0.2 mg/dL (0.2-1.3); CARBON DIOXIDE 27 mmol/L (22-30); GFR AFRICAN-AMERICAN > 60
[2016-07-09 11:50] LABS: ALKALINE PHOSPHATASE 86 U/L (38-126); ALT/SGPT 79 U/L (21-72); BLOOD UREA NITROGEN 26 mg/dL (9-20); CALCIUM 8.6 mg/dl (8.6-10.4); MAGNESIUM 1.9 mg/dL (1.6-2.3); PHOSPHOROUS 4.5 mg/dL (2.5-4.5)
[2016-07-09 13:06] LABS: GLUCOSE,RANDOM 88 mg/dL (75-110)
[2016-07-09] MEDS ORDERED: Potassium Chloride 20 mEq/15 ml LIQ UD PO ONE (21:13)
[2016-07-10] MEDS: Tigecycline 50 MG in Dextrose 5% In Water 100 ML IV SCH ×2 (08:04→20:55)
[2016-07-10 08:12] LABS: BASO # 0.1 K/uL (0.0-0.2); BASO % 1.3 % (0.0-2.0); EOS # 0.5 K/uL (0.0-0.7); EOS % 6.5 % (0.0-4.0); HEMATOCRIT 38.6 % (35.0-51.0); LYMPH # 4.1 K/uL (1.0-4.3); LYMPH % 49.7 % (20.0-40.0); MEAN CELL VOLUME 93.1 fL (80.0-94.0); MEAN CORPUSCULAR HGB CONC 33.3 g/dL (33.0-37.0); MEAN PLATELET VOLUME 7.7 fL (7.2-11.7); MONO # 1.1 K/uL (0.0-0.8); MONO % 13.5 % (0.0-10.0); RED CELL DISTRIBUTION WIDTH 13.9 % (11.5-14.5); WHITE BLOOD COUNT 8.2 K/uL (4.8-10.8)
[2016-07-10 08:30] LABS: CHLORIDE 97 mmol/L (98-107); SODIUM 138 mmol/L (132-148)
[2016-07-10 08:31] LABS: POTASSIUM 4.4 mmol/L (3.6-5.2)
[2016-07-10 08:33] LABS: ALB/GLOB RATIO 0.9 (1.0-2.1); ALKALINE PHOSPHATASE 98 U/L (38-126); ALT/SGPT 90 U/L (21-72); AST/SGOT 64 U/L (17-59); BILIRUBIN,TOTAL 0.5 mg/dL (0.2-1.3); BLOOD UREA NITROGEN 26 mg/dL (9-20); CARBON DIOXIDE 26 mmol/L (22-30); GFR AFRICAN-AMERICAN > 60; GLUCOSE,RANDOM 84 mg/dL (75-110); PHOSPHOROUS 4.5 mg/dL (2.5-4.5); TOTAL PROTEIN 7.7 g/dL (6.3-8.3)
[2016-07-10 08:34] LABS: CALCIUM 8.8 mg/dl (8.6-10.4)
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
[2016-07-10] MEDS ORDERED: Dextrose 5%/0.9% NS 1,000 ML IV SCH (10:00)
[2016-07-10] MEDS ORDERED: Midazolam 2 MG/2 ML VIAL ONE (13:43)
[2016-07-10] MEDS ORDERED: Propofol 10 mg/ml Inj (20 ML) ONE (13:44)
[2016-07-10] MEDS ORDERED: ePHEDrine 50 mg/ml Inj ONE (14:20)
[2016-07-10] MEDS ORDERED: HYDROmorphone 0.5 mg/0.5 ml ISec IVP PRN (14:52)
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
[2016-07-11] MEDS: HYDROmorphone 1 mg/ml ISec IVP PRN ×4 (06:49→20:00)
[2016-07-11 07:24] LABS: BASO # 0.1 K/uL (0.0-0.2); BASO % 0.9 % (0.0-2.0); EOS # 0.5 K/uL (0.0-0.7); EOS % 6.4 % (0.0-4.0); HEMATOCRIT 36.1 % (35.0-51.0); LYMPH # 4.2 K/uL (1.0-4.3); LYMPH % 54.1 % (20.0-40.0); MEAN CELL VOLUME 93.7 fL (80.0-94.0); MEAN CORPUSCULAR HEMOGLOBIN 31.2 pg (27.0-31.0); MEAN CORPUSCULAR HGB CONC 33.4 g/dL (33.0-37.0); MEAN PLATELET VOLUME 7.3 fL (7.2-11.7); MONO # 1.1 K/uL (0.0-0.8); NRBC % 0.1 % (0.0-2.0); RED CELL DISTRIBUTION WIDTH 13.4 % (11.5-14.5); WHITE BLOOD COUNT 7.8 K/uL (4.8-10.8)
[2016-07-11 07:42] LABS: CHLORIDE 97 mmol/L (98-107)
[2016-07-11 07:43] LABS: POTASSIUM 3.9 mmol/L (3.6-5.2); SODIUM 137 mmol/L (132-148)
[2016-07-11 07:45] LABS: ALKALINE PHOSPHATASE 90 U/L (38-126); ALT/SGPT 77 U/L (21-72); AST/SGOT 70 U/L (17-59); BILIRUBIN,TOTAL 0.4 mg/dL (0.2-1.3); BLOOD UREA NITROGEN 24 mg/dL (9-20); CARBON DIOXIDE 27 mmol/L (22-30); GFR AFRICAN-AMERICAN > 60; GLUCOSE,RANDOM 87 mg/dL (75-110); TOTAL PROTEIN 6.8 g/dL (6.3-8.3)
[2016-07-11 07:46] LABS: CALCIUM 8.4 mg/dl (8.6-10.4); MAGNESIUM 1.9 mg/dL (1.6-2.3); PHOSPHOROUS 3.7 mg/dL (2.5-4.5)
[2016-07-11] MEDS: Tigecycline 50 MG in Dextrose 5% In Water 100 ML IV SCH ×2 (09:06→20:00)
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
[2016-07-12] MEDS: HYDROmorphone 1 mg/ml ISec IVP PRN ×7 (00:08→23:51)
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
[2016-07-12] MEDS: Tigecycline 50 MG in Dextrose 5% In Water 100 ML IV SCH ×2 (07:28→20:10)
[2016-07-12 07:52] LABS: BASO # 0.1 K/uL (0.0-0.2); BASO % 0.8 % (0.0-2.0); EOS # 0.4 K/uL (0.0-0.7); EOS % 5.7 % (0.0-4.0); HEMATOCRIT 38.8 % (35.0-51.0); LYMPH # 4.1 K/uL (1.0-4.3); LYMPH % 53.5 % (20.0-40.0); MEAN CELL VOLUME 92.7 fL (80.0-94.0); MEAN CORPUSCULAR HEMOGLOBIN 30.3 pg (27.0-31.0); MEAN CORPUSCULAR HGB CONC 32.7 g/dL (33.0-37.0); MEAN PLATELET VOLUME 7.2 fL (7.2-11.7); MONO # 0.9 K/uL (0.0-0.8); MONO % 12.1 % (0.0-10.0); NRBC % 0.1 % (0.0-2.0); RED CELL DISTRIBUTION WIDTH 13.7 % (11.5-14.5); WHITE BLOOD COUNT 7.7 K/uL (4.8-10.8)
[2016-07-12 08:03] LABS: CHLORIDE 100 mmol/L (98-107)
[2016-07-12 08:04] LABS: POTASSIUM 4.4 mmol/L (3.6-5.2); SODIUM 136 mmol/L (132-148)
[2016-07-12 08:06] LABS: ALB/GLOB RATIO 0.9 (1.0-2.1); ALKALINE PHOSPHATASE 100 U/L (38-126); AST/SGOT 71 U/L (17-59); BILIRUBIN,TOTAL 0.5 mg/dL (0.2-1.3); BLOOD UREA NITROGEN 23 mg/dL (9-20); CARBON DIOXIDE 26 mmol/L (22-30); GFR AFRICAN-AMERICAN > 60; GLUCOSE,RANDOM 84 mg/dL (75-110); TOTAL PROTEIN 7.5 g/dL (6.3-8.3)
[2016-07-12 08:07] LABS: ALT/SGPT 92 U/L (21-72); CALCIUM 8.9 mg/dl (8.6-10.4); MAGNESIUM 1.9 mg/dL (1.6-2.3); PHOSPHOROUS 4.2 mg/dL (2.5-4.5)
[2016-07-12] MEDS: Multivitamin With Minerals Tab PO SCH (10:17)
[2016-07-12] MEDS ORDERED: Oxycodone/Acetaminophen 5/325 mg Tab PO PRN (13:49)
--- NOTE | 2016-07-12 16:48 | CP.PCM.PN ---
Subjective - Date & Time of Evaluation Date of Evaluation: 07/12/16 Time of Evaluation: 06:00 - Subjective Subjective: RX IN PROGRESS REMAINS AFEBRILE HAS HEP C Objective - Vital Signs/Intake and Output Vital Signs (last 24 hours): Temp Pulse Resp BP Pulse Ox 97.9 F 80 20 147/83 98 07/12/16 08:00 07/12/16 16:18 07/12/16 08:00 07/12/16 08:00 07/12/16 08:00 Intake and Output: 07/12/16 07/12/16 06:59 18:59 Intake Total 520 Output Total 850 Balance -330 - Medications Medications: Current Medications Ascorbic Acid (Vitamin C 500 Mg Tab) 500 mg PO DAILY [facility] Last Admin: 07/12/16 10:16 Dose: 500 mg Folic Acid (Folic Acid) 1 mg PO DAILY [facility] Last Admin: 07/12/16 10:17 Dose: 1 mg Heparin Sodium (Porcine) (Heparin) 5,000 units SC Q12H [facility] Last Admin: 07/12/16 10:14 Dose: 5,000 units Hydromorphone HCl (Dilaudid) 3 mg IVP Q3H PRN PRN Reason: Pain, severe (8-10) Last Admin: 07/12/16 13:13 Dose: 3 mg Tigecycline 50 mg/ Dextrose 100 mls @ 100 mls/hr IV Q12H [facility] Last Admin: 07/12/16 07:28 Dose: 100 mls/hr Multivitamins/Minerals (Therapeutic-M Tab) 1 tab PO DAILY [facility] Last Admin: 07/12/16 10:17 Dose: 1 tab Oxycodone/Acetaminophen (Percocet 5/325 Mg Tab) 2 tab PO Q6H PRN PRN Reason: Pain, severe (8-10) Stop: 07/15/16 13:50 Thiamine HCl (Vitamin B1 Tab) 100 mg PO DAILY [facility] Last Admin: 07/12/16 10:17 Dose: 100 mg - Labs Labs: 07/12/16 07:46 07/12/16 07:46 PT 10.5 SECONDS (9.7-12.2) 06/24/16 22:20 INR 0.9 06/24/16 22:20 APTT 33 SECONDS (21-34) 06/24/16 22:20 - Constitutional Appears: Non-toxic, Chronically Ill - Head Exam Head Exam: NORMOCEPHALIC - Eye Exam Eye Exam: absent: Scleral icterus - ENT Exam ENT Exam: Mucous Membranes Dry - Neck Exam Neck Exam: absent: Lymphadenopathy - Respiratory Exam Respiratory Exam: Decreased Breath Sounds, Clear to Ausculation Bilateral - Cardiovascular Exam Cardiovascular Exam: REGULAR RHYTHM, +S1, +S2 - GI/Abdominal Exam GI & Abdominal Exam: Distended, Soft - Rectal Exam Rectal Exam: Deferred - Exam Exam: NORMAL INSPECTION Assessment and Plan (1) Alcohol dependence Status: Acute (2) Alcohol intoxication Status: Acute (3) Chronic wound of extremity Status: Acute (4) Elevated LFTs Status: Acute (5) Hypertension Status: Acute (6) Cellulitis and abscess of buttock Status: Acute
[2016-07-13] MEDS: HYDROmorphone 1 mg/ml ISec IVP PRN ×3 (03:00→14:47)
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
[2016-07-13] MEDS: Tigecycline 50 MG in Dextrose 5% In Water 100 ML IV SCH ×2 (08:50→19:36)
[2016-07-13] MEDS ORDERED: Dakin's Topical 0.25%-Half Strength (480 ml) TOP SCH (11:45)
[2016-07-13 11:50] LABS: BASO # 0.1 K/uL (0.0-0.2); EOS # 0.5 K/uL (0.0-0.7); EOS % 6.5 % (0.0-4.0); HEMATOCRIT 40.2 % (35.0-51.0); LYMPH # 3.4 K/uL (1.0-4.3); LYMPH % 45.2 % (20.0-40.0); MEAN CELL VOLUME 93.4 fL (80.0-94.0); MEAN CORPUSCULAR HEMOGLOBIN 30.8 pg (27.0-31.0); MEAN CORPUSCULAR HGB CONC 32.9 g/dL (33.0-37.0); MEAN PLATELET VOLUME 7.6 fL (7.2-11.7); MONO # 1.2 K/uL (0.0-0.8); MONO % 16.2 % (0.0-10.0); NRBC % 0.1 % (0.0-2.0); RED CELL DISTRIBUTION WIDTH 13.5 % (11.5-14.5); WHITE BLOOD COUNT 7.5 K/uL (4.8-10.8)
[2016-07-13] MEDS ORDERED: Midazolam 2 MG/2 ML VIAL ONE (12:05)
[2016-07-13] MEDS ORDERED: Propofol 10 mg/ml Inj (20 ML) ONE (12:05)
[2016-07-13 12:23] LABS: CHLORIDE 98 mmol/L (98-107); SODIUM 138 mmol/L (132-148)
[2016-07-13 12:24] LABS: POTASSIUM 4.3 mmol/L (3.6-5.2)
[2016-07-13 12:25] LABS: GFR AFRICAN-AMERICAN > 60
[2016-07-13 12:26] LABS: ALKALINE PHOSPHATASE 98 U/L (38-126); ALT/SGPT 85 U/L (21-72); AST/SGOT 68 U/L (17-59); BILIRUBIN,TOTAL 0.3 mg/dL (0.2-1.3); BLOOD UREA NITROGEN 20 mg/dL (9-20); CALCIUM 8.9 mg/dl (8.6-10.4); CARBON DIOXIDE 26 mmol/L (22-30); GLUCOSE,RANDOM 87 mg/dL (75-110); PHOSPHOROUS 4.3 mg/dL (2.5-4.5); TOTAL PROTEIN 7.5 g/dL (6.3-8.3)
[2016-07-13 12:27] LABS: MAGNESIUM 1.8 mg/dL (1.6-2.3)
[2016-07-13] MEDS ORDERED: HYDROmorphone 0.5 mg/0.5 ml ISec IVP PRN (12:42)
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
[2016-07-13] MEDS: Multivitamin With Minerals Tab PO SCH (14:09)
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
[2016-07-14] MEDS ORDERED: Lidocaine 2% Inj (20ml) ONE (09:47)
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
[2016-07-14] MEDS: Multivitamin With Minerals Tab PO SCH (11:12)
[2016-07-14] MEDS: Tigecycline 50 MG in Dextrose 5% In Water 100 ML IV SCH ×2 (11:13→20:39)
[2016-07-14 17:22] LABS: BASO # 0.1 K/uL (0.0-0.2); BASO % 1.2 % (0.0-2.0); EOS # 0.5 K/uL (0.0-0.7); EOS % 5.6 % (0.0-4.0); HEMATOCRIT 36.7 % (35.0-51.0); LYMPH # 3.9 K/uL (1.0-4.3); LYMPH % 43.4 % (20.0-40.0); MEAN CELL VOLUME 93.5 fL (80.0-94.0); MEAN CORPUSCULAR HEMOGLOBIN 30.3 pg (27.0-31.0); MEAN CORPUSCULAR HGB CONC 32.4 g/dL (33.0-37.0); MEAN PLATELET VOLUME 7.4 fL (7.2-11.7); MONO # 1.1 K/uL (0.0-0.8); MONO % 12.4 % (0.0-10.0); RED CELL DISTRIBUTION WIDTH 13.8 % (11.5-14.5); WHITE BLOOD COUNT 9.1 K/uL (4.8-10.8)
[2016-07-14 17:30] LABS: CHLORIDE 97 mmol/L (98-107); SODIUM 135 mmol/L (132-148)
[2016-07-14 17:31] LABS: POTASSIUM 4.4 mmol/L (3.6-5.2)
[2016-07-14 17:32] LABS: GFR AFRICAN-AMERICAN > 60
[2016-07-14 17:33] LABS: ALKALINE PHOSPHATASE 125 U/L (38-126); AST/SGOT 77 U/L (17-59); BILIRUBIN,TOTAL < 0.1 mg/dL (0.2-1.3); BLOOD UREA NITROGEN 23 mg/dL (9-20); CARBON DIOXIDE 26 mmol/L (22-30); GLUCOSE,RANDOM 86 mg/dL (75-110); PHOSPHOROUS 4.4 mg/dL (2.5-4.5); TOTAL PROTEIN 6.9 g/dL (6.3-8.3)
[2016-07-14 17:34] LABS: ALT/SGPT 86 U/L (21-72); CALCIUM 8.3 mg/dl (8.6-10.4); MAGNESIUM 1.7 mg/dL (1.6-2.3)
[2016-07-15 07:44] LABS: BASO % 0.6 % (0.0-2.0); EOS # 0.5 K/uL (0.0-0.7); EOS % 5.7 % (0.0-4.0); HEMATOCRIT 37.4 % (35.0-51.0); LYMPH # 4.1 K/uL (1.0-4.3); LYMPH % 49.8 % (20.0-40.0); MEAN CELL VOLUME 93.9 fL (80.0-94.0); MEAN CORPUSCULAR HEMOGLOBIN 30.5 pg (27.0-31.0); MEAN CORPUSCULAR HGB CONC 32.5 g/dL (33.0-37.0); MEAN PLATELET VOLUME 7.9 fL (7.2-11.7); MONO % 11.9 % (0.0-10.0); NRBC % 0.2 % (0.0-2.0); RED CELL DISTRIBUTION WIDTH 13.8 % (11.5-14.5); WHITE BLOOD COUNT 8.3 K/uL (4.8-10.8)
[2016-07-15 07:49] LABS: CHLORIDE 98 mmol/L (98-107); SODIUM 136 mmol/L (132-148)
[2016-07-15 07:50] LABS: POTASSIUM 4.5 mmol/L (3.6-5.2)
[2016-07-15 07:51] LABS: GFR AFRICAN-AMERICAN > 60
[2016-07-15 07:52] LABS: ALKALINE PHOSPHATASE 94 U/L (38-126); ALT/SGPT 85 U/L (21-72); AST/SGOT 67 U/L (17-59); BILIRUBIN,TOTAL 0.3 mg/dL (0.2-1.3); BLOOD UREA NITROGEN 22 mg/dL (9-20); CALCIUM 8.7 mg/dl (8.6-10.4); CARBON DIOXIDE 26 mmol/L (22-30); GLUCOSE,RANDOM 81 mg/dL (75-110); PHOSPHOROUS 4.1 mg/dL (2.5-4.5); TOTAL PROTEIN 6.8 g/dL (6.3-8.3)
[2016-07-15 07:53] LABS: MAGNESIUM 1.8 mg/dL (1.6-2.3)
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
[2016-07-15] MEDS: Tigecycline 50 MG in Dextrose 5% In Water 100 ML IV SCH ×2 (09:03→20:40)
[2016-07-15] MEDS: Multivitamin With Minerals Tab PO SCH (10:35)
--- NOTE | 2016-07-15 10:39 | SPECPROC ---
PROCEDURE: Date of procedure: Procedure: 1. Placement of a left arm PICC with ultrasound and fluoroscopic guidance, CPT 80668 2. PICC tip confirmation with spot radiograph and is in the superior vena cava Medications: 1 percent lidocaine HISTORY: Poor venous access TECHNIQUE: Following informed consent and procedure time-out, the patient placed supine on the interventional table and the left arm prepped and draped in the usual sterile fashion. Ultrasound showed a patent and compressible left basilic vein. After the skin was anesthetized with lidocaine, the basilic vein was accessed with micro micropuncture technique using ultrasound guidance. A guidewire was then advanced under fluoroscopic guidance into the superior vena cava. An image documenting ultrasound guidance for vascular access was permanently saved. The length of the 2nd -lumen 5 [place] PICC was trimmed to 40 centimeters and advanced through a peel-away sheath. The PICC was position with tip of PICC confirm a spot radiograph the superior vena cava. The PICC was secured to the patient's skin. The PICC was flushed. A biopatch and sterile dressing was applied. IMPRESSION: Placement of a single -lumen, a 5 Tajik PICC left basilic vein trimmed to 40 cm. The tip of the PICC is confirmed with spot radiograph and is in the superior vena cava.
[2016-07-15] MEDS ORDERED: Succinylcholine Chloride 20 mg/ml Syr (5 ml) IV ONE (11:25)
[2016-07-15] MEDS ORDERED: Rocuronium 10 mg/ml (5 ml) ONE (11:25)
[2016-07-15] MEDS ORDERED: Propofol 10 mg/ml Inj (20 ML) ONE (11:25)
[2016-07-15] MEDS ORDERED: Midazolam 2 MG/2 ML VIAL ONE (11:25)
[2016-07-15] MEDS ORDERED: Lidocaine 4% (Laryng-O-Jet) Kit MM ONE (11:52)
[2016-07-15] MEDS ORDERED: ePHEDrine 50 mg/ml Inj ONE (11:52)
[2016-07-15] MEDS ORDERED: HYDROmorphone 0.5 mg/0.5 ml ISec IVP PRN (12:18)
[2016-07-15] MEDS ORDERED: Oxycodone/Acetaminophen 5/325 mg Tab PO PRN (15:00)
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
[2016-07-15] MEDS: Lactated Ringer's 1,000 ML IV SCH (16:10)
--- NOTE | 2016-07-15 17:49 | CP.PCM.PN ---
Subjective - Date & Time of Evaluation Date of Evaluation: 07/15/16 Time of Evaluation: 10:00 - Subjective Subjective: wound c/s still + cont wound care and iv rx Objective - Vital Signs/Intake and Output Vital Signs (last 24 hours): Temp Pulse Resp BP Pulse Ox 98 F 69 20 112/69 99 07/15/16 15:35 07/15/16 16:53 07/15/16 15:35 07/15/16 15:35 07/15/16 15:35 Intake and Output: 07/15/16 07/15/16 06:59 18:59 Intake Total 250 500 Output Total 300 Balance -50 500 - Medications Medications: Current Medications Ascorbic Acid (Vitamin C 500 Mg Tab) 500 mg PO DAILY [facility] Last Admin: 07/15/16 10:25 Dose: Not Given Folic Acid (Folic Acid) 1 mg PO DAILY [facility] Last Admin: 07/15/16 10:10 Dose: Not Given Heparin Sodium (Porcine) (Heparin) 5,000 units SC Q12H [facility] Last Admin: 07/14/16 22:43 Dose: 5,000 units Hydromorphone HCl (Dilaudid) 3 mg IVP Q3H PRN PRN Reason: Pain, severe (8-10) Tigecycline 50 mg/ Dextrose 100 mls @ 100 mls/hr IV Q12H [facility] Last Admin: 07/15/16 09:03 Dose: 100 mls/hr Lactated Ringer's (Lactated Ringer's) 1,000 mls @ 125 mls/hr IV .Q8H [facility] Last Admin: 07/15/16 16:10 Dose: 125 mls/hr Multivitamins/Minerals (Therapeutic-M Tab) 1 tab PO DAILY [facility] Last Admin: 07/15/16 10:35 Dose: Not Given Oxycodone/Acetaminophen (Percocet 5/325 Mg Tab) 2 tab PO Q6H PRN PRN Reason: Pain, severe (8-10) Sodium Hypochlorite (Dakins Solution 0.25%) 50 ml TOP PREOP [facility] Last Admin: 07/13/16 12:30 Dose: 50 ml Thiamine HCl (Vitamin B1 Tab) 100 mg PO DAILY [facility] Last Admin: 07/15/16 10:05 Dose: Not Given - Labs Labs: 07/15/16 07:10 07/15/16 07:10 PT 10.5 SECONDS (9.7-12.2) 06/24/16 22:20 INR 0.9 06/24/16 22:20 APTT 33 SECONDS (21-34) 06/24/16 22:20 - Constitutional Appears: Non-toxic - Head Exam Head Exam: NORMOCEPHALIC - Eye Exam Eye Exam: absent: Scleral icterus - ENT Exam ENT Exam: Mucous Membranes Dry - Neck Exam Neck Exam: absent: Lymphadenopathy - Respiratory Exam Respiratory Exam: Prolonged Expiratory Phase, Rhonchi - Cardiovascular Exam Cardiovascular Exam: REGULAR RHYTHM Assessment and Plan (1) Alcohol dependence Status: Acute (2) Alcohol intoxication Status: Acute (3) Chronic wound of extremity Status: Acute (4) Elevated LFTs Status: Acute (5) Hypertension Status: Acute (6) Cellulitis and abscess of buttock Status: Acute
[2016-07-16] MEDS: Lactated Ringer's 1,000 ML IV SCH ×2 (00:04→21:00)
[2016-07-16 07:19] LABS: BASO % 0.3 % (0.0-2.0); EOS % 0.1 % (0.0-4.0); HEMATOCRIT 35.6 % (35.0-51.0); LYMPH # 1.9 K/uL (1.0-4.3); LYMPH % 18.2 % (20.0-40.0); MEAN CELL VOLUME 92.6 fL (80.0-94.0); MEAN CORPUSCULAR HEMOGLOBIN 30.7 pg (27.0-31.0); MEAN CORPUSCULAR HGB CONC 33.2 g/dL (33.0-37.0); MEAN PLATELET VOLUME 8.3 fL (7.2-11.7); MONO # 0.9 K/uL (0.0-0.8); MONO % 8.5 % (0.0-10.0); NRBC % 0.1 % (0.0-2.0); RED CELL DISTRIBUTION WIDTH 13.4 % (11.5-14.5); WHITE BLOOD COUNT 10.4 K/uL (4.8-10.8)
[2016-07-16 07:23] LABS: CHLORIDE 96 mmol/L (98-107)
[2016-07-16 07:24] LABS: POTASSIUM 4.3 mmol/L (3.6-5.2); SODIUM 136 mmol/L (132-148)
[2016-07-16 07:26] LABS: ALKALINE PHOSPHATASE 94 U/L (38-126); AST/SGOT 56 U/L (17-59); BILIRUBIN,TOTAL 0.2 mg/dL (0.2-1.3); BLOOD UREA NITROGEN 20 mg/dL (9-20); CARBON DIOXIDE 27 mmol/L (22-30); GFR AFRICAN-AMERICAN > 60; GLUCOSE,RANDOM 106 mg/dL (75-110); PHOSPHOROUS 3.6 mg/dL (2.5-4.5); TOTAL PROTEIN 6.8 g/dL (6.3-8.3)
[2016-07-16 07:27] LABS: ALT/SGPT 72 U/L (21-72); CALCIUM 8.9 mg/dl (8.6-10.4); MAGNESIUM 1.8 mg/dL (1.6-2.3)
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
[2016-07-16] MEDS: Tigecycline 50 MG in Dextrose 5% In Water 100 ML IV SCH ×2 (09:22→20:30)
[2016-07-16] MEDS: Multivitamin With Minerals Tab PO SCH (10:56)
[2016-07-16] MEDS ORDERED: Midazolam 2 MG/2 ML VIAL ONE ×2 (12:17→14:39)
[2016-07-16] MEDS ORDERED: Propofol 10 mg/ml Inj (20 ML) ONE (12:17)
[2016-07-16] MEDS ORDERED: Lidocaine Hydrochloride 5 ML INJ ONE (12:17)
[2016-07-16] MEDS ORDERED: Mineral Oil Light Sterile 25 ml ONE (12:22)
[2016-07-16] MEDS ORDERED: Lidocaine 1% w Epi 1:100,000 Inj ONE (12:22)
[2016-07-16] MEDS ORDERED: Rocuronium 10 mg/ml (5 ml) ONE (13:14)
[2016-07-16] MEDS ORDERED: Lactated Ringer's 1,000 ML IV ONE (13:15)
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
[2016-07-16] MEDS: HYDROmorphone 0.5 mg/0.5 ml ISec IVP PRN ×3 (14:45→15:58)
[2016-07-16] MEDS ORDERED: Lactated Ringer's 500 ML IV ONE (15:05)
[2016-07-16] MEDS ORDERED: Oxycodone/Acetaminophen 5/325 mg Tab PO PRN ×2 (18:59→19:01)
[2016-07-17 07:07] LABS: CHLORIDE 99 mmol/L (98-107)
[2016-07-17 07:08] LABS: POTASSIUM 4.2 mmol/L (3.6-5.2); SODIUM 137 mmol/L (132-148)
[2016-07-17 07:10] LABS: ALKALINE PHOSPHATASE 81 U/L (38-126); ALT/SGPT 76 U/L (21-72); AST/SGOT 60 U/L (17-59); BILIRUBIN,TOTAL < 0.1 mg/dL (0.2-1.3); BLOOD UREA NITROGEN 26 mg/dL (9-20); CARBON DIOXIDE 28 mmol/L (22-30); GFR AFRICAN-AMERICAN > 60; GLUCOSE,RANDOM 84 mg/dL (75-110); PHOSPHOROUS 4.6 mg/dL (2.5-4.5); TOTAL PROTEIN 5.9 g/dL (6.3-8.3)
[2016-07-17 07:11] LABS: CALCIUM 8.1 mg/dl (8.6-10.4); MAGNESIUM 1.6 mg/dL (1.6-2.3)
[2016-07-17 07:13] LABS: BASO # 0.1 K/uL (0.0-0.2); BASO % 0.6 % (0.0-2.0); EOS # 0.2 K/uL (0.0-0.7); EOS % 1.9 % (0.0-4.0); HEMATOCRIT 33.2 % (35.0-51.0); LYMPH # 3.9 K/uL (1.0-4.3); LYMPH % 40.1 % (20.0-40.0); MEAN CELL VOLUME 93.7 fL (80.0-94.0); MEAN CORPUSCULAR HEMOGLOBIN 30.7 pg (27.0-31.0); MEAN CORPUSCULAR HGB CONC 32.8 g/dL (33.0-37.0); MEAN PLATELET VOLUME 7.7 fL (7.2-11.7); MONO # 1.2 K/uL (0.0-0.8); MONO % 12.2 % (0.0-10.0); RED CELL DISTRIBUTION WIDTH 13.6 % (11.5-14.5); WHITE BLOOD COUNT 9.8 K/uL (4.8-10.8)
[2016-07-17] MEDS: Multivitamin With Minerals Tab PO SCH (09:38)
[2016-07-17] MEDS: Tigecycline 50 MG in Dextrose 5% In Water 100 ML IV SCH ×2 (09:39→19:00)
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
[2016-07-17] MEDS: Lactated Ringer's 1,000 ML IV SCH ×2 (13:56→22:03)
[2016-07-17] MEDS ORDERED: Oxycodone/Acetaminophen 5/325 mg Tab PO PRN (17:12)
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
[2016-07-18 07:42] LABS: BASO # 0.1 K/uL (0.0-0.2); BASO % 0.6 % (0.0-2.0); EOS # 0.5 K/uL (0.0-0.7); EOS % 5.2 % (0.0-4.0); HEMATOCRIT 36.6 % (35.0-51.0); LYMPH # 4.2 K/uL (1.0-4.3); LYMPH % 45.5 % (20.0-40.0); MEAN CELL VOLUME 93.9 fL (80.0-94.0); MEAN CORPUSCULAR HEMOGLOBIN 30.1 pg (27.0-31.0); MEAN PLATELET VOLUME 8.2 fL (7.2-11.7); MONO # 1.3 K/uL (0.0-0.8); MONO % 14.1 % (0.0-10.0); NRBC % 0.1 % (0.0-2.0); RED CELL DISTRIBUTION WIDTH 13.6 % (11.5-14.5); WHITE BLOOD COUNT 9.3 K/uL (4.8-10.8)
[2016-07-18 07:55] LABS: CHLORIDE 96 mmol/L (98-107)
[2016-07-18 07:56] LABS: POTASSIUM 4.3 mmol/L (3.6-5.2); SODIUM 136 mmol/L (132-148)
[2016-07-18 07:59] LABS: ALKALINE PHOSPHATASE 119 U/L (38-126); ALT/SGPT 107 U/L (21-72); AST/SGOT 97 U/L (17-59); BILIRUBIN,TOTAL 0.5 mg/dL (0.2-1.3); BLOOD UREA NITROGEN 24 mg/dL (9-20); CARBON DIOXIDE 28 mmol/L (22-30); GFR AFRICAN-AMERICAN > 60; GLUCOSE,RANDOM 77 mg/dL (75-110); TOTAL PROTEIN 6.5 g/dL (6.3-8.3)
[2016-07-18 08:00] LABS: MAGNESIUM 1.7 mg/dL (1.6-2.3)
[2016-07-18] MEDS: Tigecycline 50 MG in Dextrose 5% In Water 100 ML IV SCH ×2 (08:30→20:08)
[2016-07-18] MEDS: Lactated Ringer's 1,000 ML IV SCH ×3 (09:31→20:06)
[2016-07-18] MEDS: Multivitamin With Minerals Tab PO SCH (10:00)
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
[2016-07-19] MEDS: Lactated Ringer's 1,000 ML IV SCH ×3 (04:45→22:06)
[2016-07-19 09:03] LABS: BASO # 0.1 K/uL (0.0-0.2); BASO % 0.5 % (0.0-2.0); EOS # 0.6 K/uL (0.0-0.7); EOS % 6.3 % (0.0-4.0); HEMATOCRIT 37.1 % (35.0-51.0); LYMPH # 4.5 K/uL (1.0-4.3); LYMPH % 44.5 % (20.0-40.0); MEAN CELL VOLUME 93.1 fL (80.0-94.0); MEAN CORPUSCULAR HEMOGLOBIN 30.5 pg (27.0-31.0); MEAN CORPUSCULAR HGB CONC 32.8 g/dL (33.0-37.0); MONO # 1.2 K/uL (0.0-0.8); MONO % 11.5 % (0.0-10.0); NRBC % 0.1 % (0.0-2.0); RED CELL DISTRIBUTION WIDTH 13.5 % (11.5-14.5); WHITE BLOOD COUNT 10.1 K/uL (4.8-10.8)
[2016-07-19 09:07] LABS: CHLORIDE 97 mmol/L (98-107); SODIUM 138 mmol/L (132-148)
[2016-07-19 09:08] LABS: POTASSIUM 4.1 mmol/L (3.6-5.2)
[2016-07-19 09:10] LABS: ALB/GLOB RATIO 1.1 (1.0-2.1); ALKALINE PHOSPHATASE 91 U/L (38-126); ALT/SGPT 128 U/L (21-72); AST/SGOT 104 U/L (17-59); BILIRUBIN,TOTAL 0.3 mg/dL (0.2-1.3); BLOOD UREA NITROGEN 23 mg/dL (9-20); CARBON DIOXIDE 27 mmol/L (22-30); GFR AFRICAN-AMERICAN > 60; GLUCOSE,RANDOM 85 mg/dL (75-110); PHOSPHOROUS 4.6 mg/dL (2.5-4.5); TOTAL PROTEIN 6.6 g/dL (6.3-8.3)
[2016-07-19 09:11] LABS: CALCIUM 8.6 mg/dl (8.6-10.4); MAGNESIUM 1.9 mg/dL (1.6-2.3)
[2016-07-19] MEDS: Tigecycline 50 MG in Dextrose 5% In Water 100 ML IV SCH ×2 (10:38→19:58)
[2016-07-19] MEDS: Multivitamin With Minerals Tab PO SCH (10:39)
--- NOTE | 2016-07-19 15:28 | CP.PCM.PN ---
Subjective - Date & Time of Evaluation Date of Evaluation: 07/19/16 Time of Evaluation: 05:00 - Subjective Subjective: S/p repeat graft with Dr. Zamora (07/16). Objective - Vital Signs/Intake and Output Vital Signs (last 24 hours): Temp Pulse Resp BP Pulse Ox 97.6 F 69 20 125/85 96 07/19/16 08:00 07/19/16 13:29 07/19/16 08:00 07/19/16 08:00 07/19/16 08:00 Intake and Output: 07/19/16 07/19/16 06:59 18:59 Intake Total 540 Output Total 1650 Balance -1110 - Medications Medications: Current Medications Ascorbic Acid (Vitamin C 500 Mg Tab) 500 mg PO DAILY [facility] Last Admin: 07/19/16 10:38 Dose: 500 mg Famotidine (Pepcid) 20 mg IVP DAILY [facility] Last Admin: 07/19/16 10:39 Dose: 20 mg Folic Acid (Folic Acid) 1 mg PO DAILY [facility] Last Admin: 07/19/16 10:39 Dose: 1 mg Heparin Sodium (Porcine) (Heparin) 5,000 units SC Q12H [facility] Last Admin: 07/19/16 12:40 Dose: 5,000 units Hydromorphone HCl (Dilaudid) 3 mg IVP Q3H PRN PRN Reason: Pain, moderate (4-7) Last Admin: 07/19/16 12:33 Dose: 3 mg Tigecycline 50 mg/ Dextrose 100 mls @ 100 mls/hr IV Q12H [facility] Last Admin: 07/19/16 10:38 Dose: 100 mls/hr Lactated Ringer's (Lactated Ringer's) 1,000 mls @ 125 mls/hr IV .Q8H [facility] Last Admin: 07/19/16 12:40 Dose: Not Given Lorazepam (Ativan) 1 mg IVP Q6H PRN PRN Reason: Anxiety Multivitamins/Minerals (Therapeutic-M Tab) 1 tab PO DAILY [facility] Last Admin: 07/19/16 10:39 Dose: 1 tab Oxycodone/Acetaminophen (Percocet 5/325 Mg Tab) 2 tab PO Q4H PRN PRN Reason: Pain, severe (8-10) Sodium Hypochlorite (Dakins Solution 0.25%) 50 ml TOP PREOP [facility] Last Admin: 07/13/16 12:30 Dose: 50 ml Thiamine HCl (Vitamin B1 Tab) 100 mg PO DAILY [facility] Last Admin: 07/19/16 10:39 Dose: 100 mg - Labs Labs: 07/19/16 08:52 07/19/16 08:52 PT 10.5 SECONDS (9.7-12.2) 06/24/16 22:20 INR 0.9 06/24/16 22:20 APTT 33 SECONDS (21-34) 06/24/16 22:20 - Constitutional Appears: Non-toxic, Chronically Ill - Head Exam Head Exam: NORMOCEPHALIC - Eye Exam Eye Exam: absent: Scleral icterus - ENT Exam ENT Exam: Mucous Membranes Dry - Neck Exam Neck Exam: absent: Lymphadenopathy - Respiratory Exam Respiratory Exam: Decreased Breath Sounds, Clear to Ausculation Bilateral - Cardiovascular Exam Cardiovascular Exam: REGULAR RHYTHM - GI/Abdominal Exam GI & Abdominal Exam: Distended, Soft Assessment and Plan (1) Alcohol dependence Status: Acute (2) Alcohol intoxication Status: Acute (3) Chronic wound of extremity Status: Acute (4) Elevated LFTs Status: Acute (5) Hypertension Status: Acute (6) Cellulitis and abscess of buttock Status: Acute
[2016-07-20] MEDS: Lactated Ringer's 1,000 ML IV SCH ×3 (06:00→21:32)
[2016-07-20 07:58] LABS: BASO # 0.1 K/uL (0.0-0.2); BASO % 0.5 % (0.0-2.0); EOS # 0.8 K/uL (0.0-0.7); EOS % 6.9 % (0.0-4.0); HEMATOCRIT 37.7 % (35.0-51.0); LYMPH # 4.9 K/uL (1.0-4.3); LYMPH % 43.3 % (20.0-40.0); MEAN CELL VOLUME 92.7 fL (80.0-94.0); MEAN CORPUSCULAR HEMOGLOBIN 30.4 pg (27.0-31.0); MEAN CORPUSCULAR HGB CONC 32.8 g/dL (33.0-37.0); MEAN PLATELET VOLUME 7.9 fL (7.2-11.7); MONO # 1.3 K/uL (0.0-0.8); MONO % 11.9 % (0.0-10.0); NRBC % 0.1 % (0.0-2.0); WHITE BLOOD COUNT 11.2 K/uL (4.8-10.8)
[2016-07-20 08:02] LABS: CHLORIDE 97 mmol/L (98-107); SODIUM 137 mmol/L (132-148)
[2016-07-20 08:03] LABS: POTASSIUM 4.8 mmol/L (3.6-5.2)
[2016-07-20 08:04] LABS: GFR AFRICAN-AMERICAN > 60
[2016-07-20 08:05] LABS: ALKALINE PHOSPHATASE 96 U/L (38-126); ALT/SGPT 125 U/L (21-72); AST/SGOT 94 U/L (17-59); BILIRUBIN,TOTAL 0.5 mg/dL (0.2-1.3); BLOOD UREA NITROGEN 23 mg/dL (9-20); CALCIUM 8.8 mg/dl (8.6-10.4); CARBON DIOXIDE 26 mmol/L (22-30); GLUCOSE,RANDOM 77 mg/dL (75-110); PHOSPHOROUS 3.9 mg/dL (2.5-4.5)
[2016-07-20 08:06] LABS: MAGNESIUM 1.9 mg/dL (1.6-2.3)
[2016-07-20] MEDS: Multivitamin With Minerals Tab PO SCH (09:24)
[2016-07-20] MEDS: Tigecycline 50 MG in Dextrose 5% In Water 100 ML IV SCH ×2 (09:30→19:58)
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
[2016-07-21] MEDS: Lactated Ringer's 1,000 ML IV SCH (04:30)
[2016-07-21] MEDS: Tigecycline 50 MG in Dextrose 5% In Water 100 ML IV SCH (08:37)
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
[2016-07-21] MEDS: Tmp-Smz 800 mg-160 mg DS Tab PO SCH ×2 (11:45→21:16)
[2016-07-21 11:46] LABS: BASO % 0.4 % (0.0-2.0); EOS # 0.7 K/uL (0.0-0.7); EOS % 6.2 % (0.0-4.0); HEMATOCRIT 40.6 % (35.0-51.0); LYMPH # 4.3 K/uL (1.0-4.3); LYMPH % 38.3 % (20.0-40.0); MEAN CELL VOLUME 91.9 fL (80.0-94.0); MEAN CORPUSCULAR HEMOGLOBIN 30.7 pg (27.0-31.0); MEAN CORPUSCULAR HGB CONC 33.4 g/dL (33.0-37.0); MEAN PLATELET VOLUME 7.5 fL (7.2-11.7); MONO # 1.5 K/uL (0.0-0.8); MONO % 13.6 % (0.0-10.0); RED CELL DISTRIBUTION WIDTH 13.7 % (11.5-14.5); WHITE BLOOD COUNT 11.3 K/uL (4.8-10.8)
[2016-07-21 11:51] LABS: CHLORIDE 99 mmol/L (98-107); POTASSIUM 4.5 mmol/L (3.6-5.2); SODIUM 136 mmol/L (132-148)
[2016-07-21 11:53] LABS: ALB/GLOB RATIO 0.9 (1.0-2.1); ALKALINE PHOSPHATASE 99 U/L (38-126); ALT/SGPT 111 U/L (21-72); AST/SGOT 71 U/L (17-59); BILIRUBIN,TOTAL 0.6 mg/dL (0.2-1.3); BLOOD UREA NITROGEN 23 mg/dL (9-20); CARBON DIOXIDE 24 mmol/L (22-30); GFR AFRICAN-AMERICAN > 60; TOTAL PROTEIN 7.5 g/dL (6.3-8.3)
[2016-07-21 11:54] LABS: GLUCOSE,RANDOM 83 mg/dL (75-110); MAGNESIUM 1.9 mg/dL (1.6-2.3); PHOSPHOROUS 4.2 mg/dL (2.5-4.5)
[2016-07-21] MEDS: Multivitamin With Minerals Tab PO SCH ×2 (12:21→17:20)
[2016-07-21] MEDS ORDERED: Propofol 10 mg/ml Inj (20 ML) ONE ×2 (13:44→14:12)
[2016-07-21] MEDS ORDERED: Midazolam 2 MG/2 ML VIAL ONE (13:44)
[2016-07-21] MEDS ORDERED: Lactated Ringer's 1,000 ML IV ONE ×2 (13:45→14:43)
[2016-07-21] MEDS ORDERED: HYDROmorphone 0.5 mg/0.5 ml ISec ONE (14:54)
[2016-07-21] MEDS: HYDROmorphone 0.5 mg/0.5 ml ISec IVP PRN ×2 (14:55→15:28)
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
[2016-07-22 07:47] LABS: BASO # 0.1 K/uL (0.0-0.2); BASO % 0.7 % (0.0-2.0); EOS # 0.8 K/uL (0.0-0.7); EOS % 8.4 % (0.0-4.0); HEMATOCRIT 35.8 % (35.0-51.0); LYMPH # 3.6 K/uL (1.0-4.3); LYMPH % 38.3 % (20.0-40.0); MEAN CELL VOLUME 92.2 fL (80.0-94.0); MEAN CORPUSCULAR HEMOGLOBIN 30.2 pg (27.0-31.0); MEAN CORPUSCULAR HGB CONC 32.8 g/dL (33.0-37.0); MEAN PLATELET VOLUME 7.6 fL (7.2-11.7); MONO # 1.2 K/uL (0.0-0.8); MONO % 13.1 % (0.0-10.0); RED CELL DISTRIBUTION WIDTH 13.7 % (11.5-14.5); WHITE BLOOD COUNT 9.4 K/uL (4.8-10.8)
[2016-07-22 08:05] LABS: CHLORIDE 95 mmol/L (98-107)
[2016-07-22 08:06] LABS: POTASSIUM 4.2 mmol/L (3.6-5.2); SODIUM 136 mmol/L (132-148)
[2016-07-22 08:08] LABS: ALB/GLOB RATIO 1.1 (1.0-2.1); ALKALINE PHOSPHATASE 92 U/L (38-126); ALT/SGPT 86 U/L (21-72); AST/SGOT 60 U/L (17-59); BILIRUBIN,TOTAL 0.4 mg/dL (0.2-1.3); BLOOD UREA NITROGEN 21 mg/dL (9-20); CARBON DIOXIDE 28 mmol/L (22-30); GFR AFRICAN-AMERICAN > 60; GLUCOSE,RANDOM 88 mg/dL (75-110); TOTAL PROTEIN 6.5 g/dL (6.3-8.3)
[2016-07-22 08:09] LABS: CALCIUM 8.5 mg/dl (8.6-10.4); PHOSPHOROUS 4.2 mg/dL (2.5-4.5)
[2016-07-22] MEDS: Multivitamin With Minerals Tab PO SCH (10:44)
[2016-07-22] MEDS: Tmp-Smz 800 mg-160 mg DS Tab PO SCH ×2 (10:44→21:26)
--- NOTE | 2016-07-22 19:08 | CP.PCM.PN ---
Subjective - Date & Time of Evaluation Date of Evaluation: 07/22/16 Time of Evaluation: 07:00 - Subjective Subjective: discouraged Objective - Vital Signs/Intake and Output Vital Signs (last 24 hours): Temp Pulse Resp BP Pulse Ox 98.0 F 60 20 117/75 99 07/22/16 15:05 07/22/16 17:53 07/22/16 15:05 07/22/16 15:05 07/22/16 15:05 - Medications Medications: Current Medications Ascorbic Acid (Vitamin C 500 Mg Tab) 500 mg PO DAILY [facility] Last Admin: 07/22/16 10:44 Dose: 500 mg Famotidine (Pepcid) 20 mg PO DAILY [facility] Folic Acid (Folic Acid) 1 mg PO DAILY [facility] Last Admin: 07/22/16 10:44 Dose: 1 mg Heparin Sodium (Porcine) (Heparin) 5,000 units SC Q12H [facility] Hydromorphone HCl (Dilaudid) 4 mg PO Q6H PRN PRN Reason: Pain, severe (8-10) Last Admin: 07/22/16 16:00 Dose: 4 mg Lorazepam (Ativan) 1 mg PO Q8H PRN PRN Reason: Anxiety Last Admin: 07/22/16 17:34 Dose: 1 mg Multivitamins/Minerals (Therapeutic-M Tab) 1 tab PO DAILY [facility] Last Admin: 07/22/16 10:44 Dose: 1 tab Oxycodone/Acetaminophen (Percocet 5/325 Mg Tab) 2 tab PO Q4H PRN PRN Reason: Pain, severe (8-10) Sodium Hypochlorite (Dakins Solution 0.25%) 50 ml TOP PREOP [facility] Last Admin: 07/13/16 12:30 Dose: 50 ml Thiamine HCl (Vitamin B1 Tab) 100 mg PO DAILY [facility] Last Admin: 07/22/16 10:45 Dose: 100 mg Trimethoprim/Sulfamethoxazole (Bactrim Ds Tab) 1 tab PO Q12 [facility] Last Admin: 07/22/16 10:44 Dose: 1 tab - Labs Labs: 07/22/16 07:37 07/22/16 07:37 PT 11.7 SECONDS (9.7-12.2) 07/21/16 11:24 INR 1.0 07/21/16 11:24 APTT 32 SECONDS (21-34) 07/21/16 11:24 - Constitutional Appears: Non-toxic, Chronically Ill - Eye Exam Eye Exam: absent: Scleral icterus Pupil Exam: NORMAL ACCOMODATION - ENT Exam ENT Exam: Mucous Membranes Dry, Normal External Ear Exam - Neck Exam Neck Exam: absent: Lymphadenopathy - Respiratory Exam Respiratory Exam: Decreased Breath Sounds, Clear to Ausculation Bilateral Assessment and Plan (1) Alcohol dependence Status: Acute (2) Alcohol intoxication Status: Acute (3) Chronic wound of extremity Status: Acute (4) Elevated LFTs Status: Acute (5) Hypertension Status: Acute (6) Cellulitis and abscess of buttock Status: Acute
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
[2016-07-23] MEDS ORDERED: Oxycodone/Acetaminophen 5/325 mg Tab PO PRN
[2016-07-23] MEDS: Oxycodone/Acetaminophen 5/325 mg Tab PO PRN ×4 (00:11→22:14)
[2016-07-23 07:32] LABS: CHLORIDE 97 mmol/L (98-107); POTASSIUM 4.2 mmol/L (3.6-5.2); SODIUM 137 mmol/L (132-148)
[2016-07-23 07:34] LABS: BILIRUBIN,TOTAL 0.4 mg/dL (0.2-1.3); GFR AFRICAN-AMERICAN > 60
[2016-07-23 07:35] LABS: ALKALINE PHOSPHATASE 101 U/L (38-126); ALT/SGPT 85 U/L (21-72); AST/SGOT 69 U/L (17-59); BLOOD UREA NITROGEN 16 mg/dL (9-20); CARBON DIOXIDE 25 mmol/L (22-30); GLUCOSE,RANDOM 73 mg/dL (75-110); PHOSPHOROUS 3.6 mg/dL (2.5-4.5)
[2016-07-23 07:36] LABS: CALCIUM 8.9 mg/dl (8.6-10.4)
[2016-07-23 07:43] LABS: BASO % 0.3 % (0.0-2.0); EOS # 0.6 K/uL (0.0-0.7); EOS % 6.5 % (0.0-4.0); LYMPH # 3.9 K/uL (1.0-4.3); LYMPH % 40.1 % (20.0-40.0); MEAN CELL VOLUME 92.4 fL (80.0-94.0); MEAN CORPUSCULAR HEMOGLOBIN 31.2 pg (27.0-31.0); MEAN CORPUSCULAR HGB CONC 33.8 g/dL (33.0-37.0); MEAN PLATELET VOLUME 8.2 fL (7.2-11.7); MONO # 1.3 K/uL (0.0-0.8); MONO % 12.9 % (0.0-10.0); NRBC % 0.1 % (0.0-2.0); RED CELL DISTRIBUTION WIDTH 13.7 % (11.5-14.5); WHITE BLOOD COUNT 9.8 K/uL (4.8-10.8)
[2016-07-23] MEDS: Tmp-Smz 800 mg-160 mg DS Tab PO SCH ×2 (10:00→22:07)
[2016-07-23] MEDS ORDERED: Midazolam 2 MG/2 ML VIAL ONE (12:59)
[2016-07-23] MEDS ORDERED: Propofol 10 mg/ml Inj (20 ML) ONE ×2 (12:59→13:30)
[2016-07-23] MEDS: HYDROmorphone 0.5 mg/0.5 ml ISec IVP PRN ×3 (14:09→15:32)
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
[2016-07-23] MEDS ORDERED: Lactated Ringer's 1,000 ML IV ONE (15:45)
[2016-07-23] MEDS: Multivitamin With Minerals Tab PO SCH (18:11)
[2016-07-24 00:27] VITALS: RESP 20
[2016-07-24] MEDS: Oxycodone/Acetaminophen 5/325 mg Tab PO PRN ×4 (03:12→20:33)
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
[2016-07-24] MEDS: Tmp-Smz 800 mg-160 mg DS Tab PO SCH (10:52)
[2016-07-24] MEDS: Multivitamin With Minerals Tab PO SCH (10:52)
[2016-07-24 10:56] LABS: BASO % 0.6 % (0.0-2.0); EOS # 0.6 K/uL (0.0-0.7); EOS % 9.2 % (0.0-4.0); HEMATOCRIT 33.8 % (35.0-51.0); LYMPH # 2.7 K/uL (1.0-4.3); MEAN CELL VOLUME 91.5 fL (80.0-94.0); MEAN CORPUSCULAR HEMOGLOBIN 30.2 pg (27.0-31.0); MEAN PLATELET VOLUME 7.5 fL (7.2-11.7); MONO # 0.6 K/uL (0.0-0.8); MONO % 10.5 % (0.0-10.0); RED CELL DISTRIBUTION WIDTH 13.7 % (11.5-14.5); WHITE BLOOD COUNT 6.1 K/uL (4.8-10.8)
[2016-07-24 11:04] LABS: CHLORIDE 102 mmol/L (98-107); POTASSIUM 3.8 mmol/L (3.6-5.2); SODIUM 138 mmol/L (132-148)
[2016-07-24 11:06] LABS: BILIRUBIN,TOTAL 0.2 mg/dL (0.2-1.3); CARBON DIOXIDE 25 mmol/L (22-30); GFR AFRICAN-AMERICAN > 60
[2016-07-24 11:07] LABS: ALB/GLOB RATIO 0.9 (1.0-2.1); ALKALINE PHOSPHATASE 84 U/L (38-126); ALT/SGPT 88 U/L (21-72); AST/SGOT 58 U/L (17-59); BLOOD UREA NITROGEN 13 mg/dL (9-20); CALCIUM 8.7 mg/dl (8.6-10.4); GLUCOSE,RANDOM 133 mg/dL (75-110); MAGNESIUM 1.8 mg/dL (1.6-2.3); TOTAL PROTEIN 6.5 g/dL (6.3-8.3)
[2016-07-24 17:01] VITALS: BP 123/75; PULSE 61; TEMP 98.2; O2SAT 99
--- NOTE | 2016-07-24 17:46 | CP.PCM.PN ---
Subjective - Date & Time of Evaluation Date of Evaluation: 07/24/16 Time of Evaluation: 10:00 - Subjective Subjective: cultures still positive consider tertiary care referral Objective - Vital Signs/Intake and Output Vital Signs (last 24 hours): Temp Pulse Resp BP Pulse Ox 98.2 F 61 20 123/75 99 07/24/16 15:00 07/24/16 15:00 07/24/16 15:00 07/24/16 15:00 07/24/16 15:00 Intake and Output: 07/24/16 07/24/16 06:59 18:59 Intake Total 200 500 Output Total 100 Balance 200 400 - Medications Medications: Current Medications Ascorbic Acid (Vitamin C 500 Mg Tab) 500 mg PO DAILY [facility] Last Admin: 07/24/16 10:52 Dose: 500 mg Famotidine (Pepcid) 20 mg PO DAILY [facility] Last Admin: 07/24/16 10:52 Dose: 20 mg Folic Acid (Folic Acid) 1 mg PO DAILY [facility] Last Admin: 07/24/16 10:52 Dose: 1 mg Heparin Sodium (Porcine) (Heparin) 5,000 units SC Q12H [facility] Last Admin: 07/24/16 10:51 Dose: 5,000 units Hydromorphone HCl (Dilaudid) 4 mg PO Q6H PRN PRN Reason: Pain, severe (8-10) Last Admin: 07/24/16 12:37 Dose: 4 mg Lorazepam (Ativan) 1 mg PO Q8H PRN PRN Reason: Anxiety Last Admin: 07/24/16 11:01 Dose: 1 mg Multivitamins/Minerals (Therapeutic-M Tab) 1 tab PO DAILY [facility] Last Admin: 07/24/16 10:52 Dose: 1 tab Oxycodone/Acetaminophen (Percocet 5/325 Mg Tab) 2 tab PO Q4H PRN PRN Reason: Pain, moderate (4-7) Last Admin: 07/24/16 13:58 Dose: 2 tab Sodium Hypochlorite (Dakins Solution 0.25%) 50 ml TOP PREOP [facility] Last Admin: 07/13/16 12:30 Dose: 50 ml Thiamine HCl (Vitamin B1 Tab) 100 mg PO DAILY [facility] Last Admin: 07/24/16 10:52 Dose: 100 mg Trimethoprim/Sulfamethoxazole (Bactrim Ds Tab) 1 tab PO Q12 [facility] Last Admin: 07/24/16 10:52 Dose: 1 tab - Labs Labs: 07/24/16 10:45 07/24/16 10:45 PT 11.7 SECONDS (9.7-12.2) 07/21/16 11:24 INR 1.0 07/21/16 11:24 APTT 32 SECONDS (21-34) 07/21/16 11:24 - Constitutional Appears: Non-toxic, Chronically Ill - Head Exam Head Exam: NORMOCEPHALIC - Eye Exam Eye Exam: absent: Scleral icterus - Neck Exam Neck Exam: absent: Lymphadenopathy - Respiratory Exam Respiratory Exam: Decreased Breath Sounds - Cardiovascular Exam Cardiovascular Exam: REGULAR RHYTHM, +S1, +S2 - GI/Abdominal Exam GI & Abdominal Exam: Distended, Soft. absent: Tenderness - Rectal Exam Rectal Exam: Deferred - Exam Exam: NORMAL INSPECTION - Back Exam Back Exam: absent: CVA tenderness (L), CVA tenderness (R) - Neurological Exam Neurological Exam: Alert, Awake, Oriented x3 Assessment and Plan (1) Alcohol dependence Status: Acute (2) Alcohol intoxication Status: Acute (3) Chronic wound of extremity Status: Acute (4) Elevated LFTs Status: Acute (5) Hypertension Status: Acute (6) Cellulitis and abscess of buttock Status: Acute
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
== END 2016-07-24 21:30 ==
LOC: C.ER 18:09 → C.9E 21:16 → C.3T 22:12
PROVIDERS: ADMIT Internal Medicine; ATTEND Internal Medicine
PROC: 02HV33Z Insertion of Infusion Device into Superior Vena Cava, Percutaneous Approach (ICD-10-PCS; 2016-06-16)
PROC: HZ2ZZZZ Detoxification Services for Substance Abuse Treatment (ICD-10-PCS; principal; 2016-06-20)
PROC: 0HR8X74 Replacement of Buttock Skin with Autologous Tissue Substitute, Partial Thickness, External Approach (ICD-10-PCS; 2016-06-20)
PROC: 0HBJXZZ Excision of Left Upper Leg Skin, External Approach (ICD-10-PCS; 2016-06-20)
PROC: 0HB6XZZ Excision of Back Skin, External Approach (ICD-10-PCS; 2016-06-20)
PROC: 0HX8XZZ Transfer Buttock Skin, External Approach (ICD-10-PCS; 2016-06-20)
PROC: 0HB8XZZ Excision of Buttock Skin, External Approach (ICD-10-PCS; 2016-06-22)
PROC: 06QY0ZZ Repair Lower Vein, Open Approach (ICD-10-PCS; 2016-06-23)
PROC: 0HB8XZZ Excision of Buttock Skin, External Approach (ICD-10-PCS; 2016-06-23)
PROC: 0HB8XZZ Excision of Buttock Skin, External Approach (ICD-10-PCS; 2016-06-24)
PROC: 2W0 Placement, Anatomical Regions, Change (ICD-10-PCS; 2016-06-24)
PROC: 0HQ8XZZ Repair Buttock Skin, External Approach (ICD-10-PCS; 2016-06-24)
PROC: 0D1N0Z4 Bypass Sigmoid Colon to Cutaneous, Open Approach (ICD-10-PCS; 2016-06-25)
PROC: 2W0 Placement, Anatomical Regions, Change (ICD-10-PCS; 2016-06-25)
PROC: 0HB8XZZ Excision of Buttock Skin, External Approach (ICD-10-PCS; 2016-06-26)
PROC: 2W0 Placement, Anatomical Regions, Change (ICD-10-PCS; 2016-06-26)
PROC: 0HB6XZX Excision of Back Skin, External Approach, Diagnostic (ICD-10-PCS; 2016-06-26)
PROC: 0HB8XZZ Excision of Buttock Skin, External Approach (ICD-10-PCS; 2016-06-29)
PROC: 06QY0ZZ Repair Lower Vein, Open Approach (ICD-10-PCS; 2016-06-29)
PROC: 2W0 Placement, Anatomical Regions, Change (ICD-10-PCS; 2016-06-29)
PROC: 0HB6XZZ Excision of Back Skin, External Approach (ICD-10-PCS; 2016-07-01)
PROC: 0HB8XZZ Excision of Buttock Skin, External Approach (ICD-10-PCS; 2016-07-01)
PROC: 06QY0ZZ Repair Lower Vein, Open Approach (ICD-10-PCS; 2016-07-01)
PROC: 0HX8XZZ Transfer Buttock Skin, External Approach (ICD-10-PCS; 2016-07-01)
PROC: 2W0 Placement, Anatomical Regions, Change (ICD-10-PCS; 2016-07-01)
PROC: 0HB8XZZ Excision of Buttock Skin, External Approach (ICD-10-PCS; 2016-07-03)
PROC: 0HB6XZZ Excision of Back Skin, External Approach (ICD-10-PCS; 2016-07-03)
PROC: 06QY0ZZ Repair Lower Vein, Open Approach (ICD-10-PCS; 2016-07-03)
PROC: 0HX8XZZ Transfer Buttock Skin, External Approach (ICD-10-PCS; 2016-07-03)
PROC: 0HB8XZZ Excision of Buttock Skin, External Approach (ICD-10-PCS; 2016-07-10)
PROC: 0HB6XZZ Excision of Back Skin, External Approach (ICD-10-PCS; 2016-07-10)
PROC: 0HX8XZZ Transfer Buttock Skin, External Approach (ICD-10-PCS; 2016-07-10)
PROC: 2W0 Placement, Anatomical Regions, Change (ICD-10-PCS; 2016-07-10)
PROC: 0HB8XZZ Excision of Buttock Skin, External Approach (ICD-10-PCS; 2016-07-15)
PROC: 0HB6XZZ Excision of Back Skin, External Approach (ICD-10-PCS; 2016-07-15)
PROC: 0HX8XZZ Transfer Buttock Skin, External Approach (ICD-10-PCS; 2016-07-15)
PROC: 0HR8X74 Replacement of Buttock Skin with Autologous Tissue Substitute, Partial Thickness, External Approach (ICD-10-PCS; 2016-07-16)
PROC: 0HBHXZZ Excision of Right Upper Leg Skin, External Approach (ICD-10-PCS; 2016-07-16)
PROC: 06QY0ZZ Repair Lower Vein, Open Approach (ICD-10-PCS; 2016-07-16)
PROC: 0HX8XZZ Transfer Buttock Skin, External Approach (ICD-10-PCS; 2016-07-16)
PROC: 0HB8XZZ Excision of Buttock Skin, External Approach (ICD-10-PCS; 2016-07-21)
PROC: 0HB6XZZ Excision of Back Skin, External Approach (ICD-10-PCS; 2016-07-21)
PROC: 0HX8XZZ Transfer Buttock Skin, External Approach (ICD-10-PCS; 2016-07-21)
PROC: 0H5 Skin and Breast, Destruction (ICD-10-PCS; 2016-07-21)
PROC: 0HB6XZZ Excision of Back Skin, External Approach (ICD-10-PCS; 2016-07-23)
PROC: 0HB8XZZ Excision of Buttock Skin, External Approach (ICD-10-PCS; 2016-07-23)
PROC: 06QY0ZZ Repair Lower Vein, Open Approach (ICD-10-PCS; 2016-07-23)
PROC: XHRPXL2 Replacement of Skin using Porcine Liver Derived Skin Substitute, External Approach, New Technology Group 2 (ICD-10-PCS; 2016-07-23)
PROC: 0H5 Skin and Breast, Destruction (ICD-10-PCS; 2016-07-23)
DX: T21.35XA Burn of third degree of buttock, initial encounter (principal); K85.90 Acute pancreatitis without necrosis or infection, unspecified; T22.031A Burn of unspecified degree of right upper arm, initial encounter; T31.11 Burns involving 10-19% of body surface with 10-19% third degree burns; I96 Gangrene, not elsewhere classified; E83.42 Hypomagnesemia; L02.31 Cutaneous abscess of buttock; I10 Essential (primary) hypertension; L03.317 Cellulitis of buttock; K94.03 Colostomy malfunction; K91.71 Accidental puncture and laceration of a digestive system organ or structure during a digestive system procedure; F20.9 Schizophrenia, unspecified; Y92.009 Unspecified place in unspecified non-institutional (private) residence as the place of occurrence of the external cause; X17.XXXA Contact with hot engines, machinery and tools, initial encounter; B95.62 Methicillin resistant Staphylococcus aureus infection as the cause of diseases classified elsewhere; F10.220 Alcohol dependence with intoxication, uncomplicated; F31.9 Bipolar disorder, unspecified; F17.210 Nicotine dependence, cigarettes, uncomplicated; F41.9 Anxiety disorder, unspecified; F41.3 Other mixed anxiety disorders; G89.29 Other chronic pain; M25.559 Pain in unspecified hip; Y90.3 Blood alcohol level of 60-79 mg/100 ml; Z96.642 Presence of left artificial hip joint; E87.6 Hypokalemia; R74.0 Nonspecific elevation of levels of transaminase and lactic acid dehydrogenase [LDH]; T24.011A Burn of unspecified degree of right thigh, initial encounter; D64.9 Anemia, unspecified; E83.39 Other disorders of phosphorus metabolism; Y83.3 Surgical operation with formation of external stoma as the cause of abnormal reaction of the patient, or of later complication, without mention of misadventure at the time of the procedure; B19.20 Unspecified viral hepatitis C without hepatic coma; T21.34XA Burn of third degree of lower back, initial encounter

== ENCOUNTER 2016-08-28 13:12 | Emergency (ER) | payer MEDICAID ==
[2016-08-28 13:12] VITALS: BMI 25.8
[2016-08-28 13:34] VITALS: O2SAT 95
--- NOTE | 2016-08-28 14:55 | C.PDOC ---
History Of Present Illness 56 y/o male presents to the ED requesting colostomy bags. Pt states he ran out and needs new ones. Has no other complaints at this time. History of alcohol abuse. Time Seen by Provider: 08/28/16 13:47 Chief Complaint (Nursing): Weakness/Neurological Deficit History Per: Patient History/Exam Limitations: no limitations Severity: None Recent travel outside of the [place]: No Past Medical History Reviewed: Historical Data, Nursing Documentation, Vital Signs Vital Signs: Last Vital Signs Temp 98.3 F 08/28/16 13:28 Pulse 116 H 08/28/16 13:28 Resp 20 08/28/16 13:28 BP 155/98 H 08/28/16 13:28 Pulse Ox 95 08/28/16 14:55 - Medical History PMH: Anxiety, Arthritis (L HIP; BACK), Bipolar Disorder, Depression, Fractures ( left elbow), HTN, Schizophrenia, Chronic Pain (Hip) - [facility] Procedures APPLICATION OF SPLINT (10/17/14) BYPASS SIGMOID COLON TO CUTANEOUS, OPEN APPROACH (06/20/16) CHANGE PACKING MATERIAL ON RIGHT UPPER LEG (06/20/16) DESTRUCTION OF BACK SKIN, EXTERNAL APPROACH (06/20/16) DESTRUCTION OF BACK SKIN, MULTIPLE, EXTERNAL APPROACH (06/20/16) DETOXIFICATION SERVICES FOR SUBSTANCE ABUSE TREATMENT (06/20/16) EXCISION OF BACK SKIN, EXTERNAL APPROACH (06/20/16) EXCISION OF BACK SKIN, EXTERNAL APPROACH, DIAGNOSTIC (06/20/16) EXCISION OF BUTTOCK SKIN, EXTERNAL APPROACH (06/20/16) EXCISION OF LEFT UPPER LEG SKIN, EXTERNAL APPROACH (06/20/16) EXCISION OF RIGHT UPPER LEG SKIN, EXTERNAL APPROACH (06/20/16) GROUP EMU FARMER FOR SUBSTANCE ABUSE TREATMENT, PSYCHOEDUCATION (03/31/16) INSERTION OF INFUSION DEV INTO SUP VENA CAVA, PERC APPROACH (06/20/16) REPAIR BUTTOCK SKIN, EXTERNAL APPROACH (06/20/16) REPAIR LOWER VEIN, OPEN APPROACH (06/20/16) REPLACE BUTTOCK SKIN W AUTOL SUB, PART THICK, ANESTHESIOLOGY TECH (06/20/16) REPLACE SKIN W PORC LIVR SUB, ANESTHESIOLOGY TECH, NEW TECH 2 (06/20/16) RESPIRATORY VENTILATION, 24-96 CONSECUTIVE HOURS (01/13/16) RESPIRATORY VENTILATION, LESS THAN 24 CONSECUTIVE HOURS (10/09/15) TRANSFER BUTTOCK SKIN, EXTERNAL APPROACH (06/20/16) Family History: States: Unknown Family Hx - Social History Hx Tobacco Use: Yes Hx Alcohol Use: Yes Hx Substance Use: Yes - Immunization History Hx Tetanus Toxoid Vaccination: No Hx Influenza Vaccination: No Hx Pneumococcal Vaccination: No Review Of Systems Except As Marked, All Systems Reviewed And Found Negative. Constitutional: Negative for: Fever Cardiovascular: Negative for: Chest Pain Respiratory: Negative for: Shortness of Breath Gastrointestinal: Negative for: Vomiting, Abdominal Pain Neurological: Negative for: Headache Physical Exam - Physical Exam Appears: Well, Non-toxic, No Acute Distress, Other (No evidence of intoxication. ) Skin: Warm, Dry, No Rash Head: Atraumatic, Normacephalic Neck: Normal, Normal ROM, Supple Chest: Symmetrical Cardiovascular: Rhythm Regular, No Murmur Respiratory: Normal Breath Sounds, No Rales, No Rhonchi, No Wheezing Gastrointestinal/Abdominal: Soft, No Tenderness, Other (colostomy without bag to LLQ) Extremity: Bilateral: Atraumatic Neurological/Psych: Oriented x3, Normal Speech ED Course And Treatment O2 Sat by Pulse Oximetry: 95 (room air) Pulse Ox Interpretation: Normal Medical Decision Making Medical Decision Making: needed colostomy bag, now replaced with good effect outpatient f/u with new colostomy bags already arranged Disposition Doctor Will See Patient In The: Office Counseled Patient/Family Regarding: Studies Performed, Diagnosis - Disposition Referrals: Fidel Lemon Jr., MD [Medical Doctor] - Disposition: HOME/ ROUTINE Disposition Time: 14:54 Condition: GOOD Instructions: Colostomy Care (ED) - Clinical Impression Clinical Impression: Colostomy care - Scribe Statement The provider has reviewed the documentation as recorded by the Sabiha Ellis Provider Attestation: All medical record entries made by the Sabiha were at my direction and personally dictated by me. I have reviewed the chart and agree that the record accurately reflects my personal performance of the history, physical exam, medical decision making, and the department course for this patient. I have also personally directed, reviewed, and agree with the discharge instructions and disposition.
[2016-08-28 16:53] VITALS: BP 163/94; PULSE 102; RESP 16; TEMP 97.8
== END 2016-08-28 15:21 | disposition home or self-care (01) ==
LOC: C.ER 13:12
DX: Z43.3 Encounter for attention to colostomy (principal)

== ENCOUNTER 2016-08-29 13:32 | Emergency (ER) | payer MEDICAID ==
[2016-08-29 13:32] VITALS: BMI 25.8
[2016-08-29 13:46] VITALS: RESP 14; O2SAT 99
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
[2016-08-29 15:22] VITALS: BP 130/69; PULSE 109; TEMP 98.6
== END 2016-08-29 16:43 | disposition home or self-care (01) ==
LOC: C.ER 13:32
DX: Z43.3 Encounter for attention to colostomy (principal)

== ENCOUNTER 2016-09-20 11:14 | Emergency (ER) | payer MEDICAID ==
[2016-09-20 11:15] VITALS: BMI 25.8
[2016-09-20] MEDS ORDERED: Sodium Chloride 0.9% 500 ML IV ONE ×2 (11:48→12:08)
[2016-09-20 12:46] LABS: BASO % 0.6 % (0.0-2.0); EOS # 0.2 K/uL (0.0-0.7); EOS % 3.6 % (0.0-4.0); HEMATOCRIT 42.5 % (35.0-51.0); LYMPH % 34.8 % (20.0-40.0); MEAN CELL VOLUME 92.8 fL (80.0-94.0); MEAN CORPUSCULAR HEMOGLOBIN 30.6 pg (27.0-31.0); MEAN CORPUSCULAR HGB CONC 32.9 g/dL (33.0-37.0); MEAN PLATELET VOLUME 8.3 fL (7.2-11.7); MONO # 0.7 K/uL (0.0-0.8); MONO % 13.2 % (0.0-10.0); NRBC % 0.2 % (0.0-2.0); RED CELL DISTRIBUTION WIDTH 14.7 % (11.5-14.5); WHITE BLOOD COUNT 5.7 K/uL (4.8-10.8)
--- NOTE | 2016-09-20 12:50 | C.PDOC ---
History Of Present Illness The patient, a 56 y/o male, PMH HTN presents to the ED for evaluation of left lower quadrant abdominal pain which began this morning. Patient states he was getting out of bed when he felt weak and unsteady and fell onto his abdomen. Patient notes he hit his head during the fall with questionable loss of consciousness. Pain to colostomy site around the area and left hip. Patient also has a history of hip fracture and replacement and notes pain to his left hip. He denies visual changes, back pain, nausea, vomiting, extremity numbness/ weakness. Time Seen by Provider: 09/20/16 11:18 Chief Complaint (Nursing): Abdominal Pain History Per: Patient History/Exam Limitations: no limitations Onset/Duration Of Symptoms: Hrs Current Symptoms Are (Timing): Still Present Location Of Pain/Discomfort: LLQ Radiation Of Pain To:: None Quality Of Discomfort: "Pain" Associated Symptoms: denies: Nausea, Vomiting, Back Pain Additional History Per: Patient Past Medical History Reviewed: Historical Data, Nursing Documentation, Vital Signs Vital Signs: Last Vital Signs Temp 98.1 F 09/20/16 15:00 Pulse 76 09/20/16 15:00 Resp 17 09/20/16 15:00 BP 156/75 H 09/20/16 15:00 Pulse Ox 96 09/20/16 16:03 - Medical History PMH: Anxiety, Arthritis (L HIP; BACK), Bipolar Disorder, Depression, Fractures ( left elbow), HTN, Schizophrenia, Chronic Pain (Hip) Denies: Diabetes, Hepatitis, HIV, Chronic Kidney Disease, Seizures, Sexually Transmitted Disease Surgical History: No Surg Hx - [facility] Procedures APPLICATION OF SPLINT (10/17/14) BYPASS SIGMOID COLON TO CUTANEOUS, OPEN APPROACH (06/20/16) CHANGE PACKING MATERIAL ON RIGHT UPPER LEG (06/20/16) DESTRUCTION OF BACK SKIN, EXTERNAL APPROACH (06/20/16) DESTRUCTION OF BACK SKIN, MULTIPLE, EXTERNAL APPROACH (06/20/16) DETOXIFICATION SERVICES FOR SUBSTANCE ABUSE TREATMENT (06/20/16) EXCISION OF BACK SKIN, EXTERNAL APPROACH (06/20/16) EXCISION OF BACK SKIN, EXTERNAL APPROACH, DIAGNOSTIC (06/20/16) EXCISION OF BUTTOCK SKIN, EXTERNAL APPROACH (06/20/16) EXCISION OF LEFT UPPER LEG SKIN, EXTERNAL APPROACH (06/20/16) EXCISION OF RIGHT UPPER LEG SKIN, EXTERNAL APPROACH (06/20/16) GROUP AUTOMATIC VULCANIZING OPERATOR FOR SUBSTANCE ABUSE TREATMENT, PSYCHOEDUCATION (03/31/16) INSERTION OF INFUSION DEV INTO SUP VENA CAVA, PERC APPROACH (06/20/16) REPAIR BUTTOCK SKIN, EXTERNAL APPROACH (06/20/16) REPAIR LOWER VEIN, OPEN APPROACH (06/20/16) REPLACE BUTTOCK SKIN W AUTOL SUB, PART THICK, LOGGING RAFTER LABORER (06/20/16) REPLACE SKIN W PORC LIVR SUB, LOGGING RAFTER LABORER, NEW TECH 2 (06/20/16) RESPIRATORY VENTILATION, 24-96 CONSECUTIVE HOURS (01/13/16) RESPIRATORY VENTILATION, LESS THAN 24 CONSECUTIVE HOURS (10/09/15) TRANSFER BUTTOCK SKIN, EXTERNAL APPROACH (06/20/16) Family History: States: Unknown Family Hx - Social History Hx Tobacco Use: Yes Hx Alcohol Use: Yes Hx Substance Use: Yes - Immunization History Hx Tetanus Toxoid Vaccination: No Hx Influenza Vaccination: No Hx Pneumococcal Vaccination: No Review Of Systems Except As Marked, All Systems Reviewed And Found Negative. Eyes: Negative for: Vision Change Gastrointestinal: Positive for: Abdominal Pain (LLQ). Negative for: Nausea, Vomiting Musculoskeletal: Negative for: Back Pain Neurological: Positive for: Other (+questionable LOC). Negative for: Weakness, Numbness Physical Exam - Physical Exam Appears: Non-toxic, No Acute Distress Skin: Normal Color, Warm, Dry Head: Atraumatic, Normacephalic, No Tenderness, No Abrasion, No Laceration Eye(s): bilateral: Normal Inspection, PERRL, EOMI Nose: Normal, No Discharge, No Epistaxis, No Septal Hematoma Oral Mucosa: Moist Neck: Normal ROM, Supple Chest: Symmetrical, No Deformity, No Tenderness Cardiovascular: Rhythm Regular Respiratory: Normal Breath Sounds, No Rales, No Rhonchi, No Wheezing Gastrointestinal/Abdominal: Tenderness (mild TTP to left lower quadrant around + colostomy bag with stool. no erythema, no blood ), Other Extremity: Normal ROM, Tenderness (left hip ), No Calf Tenderness, Capillary Refill (less than 2 seconds ), No Deformity, No Swelling, Other (left hip: no visible shortening or external rotation ) Pulses: Left Dorsalis Pedis: Normal, Right Dorsalis Pedis: Normal Neurological/Psych: Oriented x3, Normal Speech, Normal Cognition, Normal Sensation Gait: Steady ED Course And Treatment - Laboratory Results Result Diagrams: 09/20/16 12:35 09/20/16 12:35 O2 Sat by Pulse Oximetry: 96 (on RA) Pulse Ox Interpretation: Normal - Other Rad Hip/Pelvis XR X-Ray: Interpreted by Me, Viewed By Me, Read By Radiologist Interpretation: Accession No. : [id number]. Patient Name / ID : MORALES VILLALPANDO / [id number]. Exam Date : 09/20/2016 12:43:37 ( Approved ). Study Comment : Sex / Age : M / 56Y. Creator : Karlos Renee MD. Dictator : Karlos Renee MD. Clin Tech : Group Supervisor Yard : Karlos Renee MD. Approver2 : Report Date : 09/20/2016 13:11:18. My Comment : . PROCEDURE: Pelvis and left hip. HISTORY: trauma. COMPARISON: TECHNIQUE: Three views. FINDINGS: There is a left-sided hip prosthesis. There is no evidence of acute dislocation or fracture around the prosthesis. There is a screw through the acetabular cup that extends through the cortex of the acetabulum medially. There is no pelvic fracture. Mild degenerative changes are seen in the right hip. IMPRESSION: No acute findings - CT Scan/US CT Head Other Rad Studies (CT/US): Interpreted By Me, Read By Radiologist, Radiology Report Reviewed CT/US Interpretation: Accession No. : [id number]. Patient Name / ID : MORALES VILLALPNADO / [id number]. Exam Date : 09/20/2016 14:36:41 ( Approved ). Study Comment : Sex / Age : M / 56Y. Creator : Curtis Vyas MD. Dictator : Curtis Vyas MD. Clin Tech : Group Supervisor Yard : Curtis Vyas MD. Approver2 : Report Date : 09/20/2016 15:04:11. My Comment : . PROCEDURE: CT HEAD WITHOUT CONTRAST. HISTORY: Trauma assess for intracranial hemorrhage. COMPARISON: 05/17/2016. TECHNIQUE: Axial computed tomography images were obtained through the head/brain without intravenous contrast. Supplemental 3D surface rendering. Radiation dose: Total exam DLP = 991.19 mGy-cm. This CT exam was performed using one or more of the following dose reduction techniques: Automated exposure control, adjustment of the mA and/ or kV according to patient size, and/or use of iterative reconstruction technique. FINDINGS: HEMORRHAGE: No intracranial hemorrhage. BRAIN: No mass effect or edema. Cortical atrophy, periventricular small vessel disease. VENTRICLES: Unremarkable. No hydrocephalus. CALVARIUM: Unremarkable. PARANASAL SINUSES: Chronic ethmoid air cell disease. MASTOID AIR CELLS: Unremarkable as visualized. No inflammatory changes. OTHER FINDINGS: None. IMPRESSION: Normal CT of the Head. No acute intracranial abnormalities. No significant findings to account for the clinical presentation. No significant interval change compared to the prior examination(s). Progress Note: Labs, CT A/P, CT Head, Hip/Pelvis XR, EKG ordered and reviewed. Patient received Tylenol PO and IV Fluids. Case discussed with Dr. Munson, who evaluted pt and agrees with plan and treatment. Prior to re-evaluation, pt requests to be discharged from the ED, stating he feels fine. Patient is ambulatory with a steady gait, no apparent weakness, remains afebrile, with improvement in his pain. Pt left ER prior to discharge. Disposition - Disposition Disposition: AGAINST MEDICAL ADVICE Disposition Time: 15:00 Condition: STABLE - Clinical Impression Clinical Impression: Abdominal pain, Fall, Contusion, hip - PA / SUCTION OPERATOR / Resident Statement MD/DO has reviewed & agrees with the documentation as recorded. - Scribe Statement The provider has reviewed the documentation as recorded by the Scribe (Graciela Kuhn) All medical record entries made by the Scribe were at my direction and personally dictated by me. I have reviewed the chart and agree that the record accurately reflects my personal performance of the history, physical exam, medical decision making, and the department course for this patient. I have also personally directed, reviewed, and agree with the discharge instructions and disposition.
[2016-09-20 13:00] LABS: CHLORIDE 105 mmol/L (98-107); POTASSIUM 4.6 mmol/L (3.6-5.2); SODIUM 140 mmol/L (132-148)
[2016-09-20 13:02] LABS: AST/SGOT 154 U/L (17-59); BILIRUBIN,TOTAL 0.8 mg/dL (0.2-1.3); CARBON DIOXIDE 23 mmol/L (22-30); GFR AFRICAN-AMERICAN > 60
[2016-09-20 13:03] LABS: ALB/GLOB RATIO 1.2 (1.0-2.1); ALKALINE PHOSPHATASE 84 U/L (38-126); ALT/SGPT 158 U/L (21-72); BLOOD UREA NITROGEN 18 mg/dL (9-20); CALCIUM 8.6 mg/dl (8.6-10.4); GLUCOSE,RANDOM 82 mg/dL (75-110); TOTAL PROTEIN 7.9 g/dL (6.3-8.3)
[2016-09-20 13:04] LABS: ALCOHOL SERUM < 10 mg/dl (0-10)
--- NOTE | 2016-09-20 13:13 | RAD ---
PROCEDURE: Pelvis and left hip HISTORY: trauma COMPARISON: TECHNIQUE: Three views FINDINGS: There is a left-sided hip prosthesis. There is no evidence of acute dislocation or fracture around the prosthesis. There is a screw through the acetabular cup that extends through the cortex of the acetabulum medially. There is no pelvic fracture. Mild degenerative changes are seen in the right hip IMPRESSION: No acute findings
[2016-09-20] MEDS ORDERED: Iodixanol 320 MG/ML 100 ML BOTTLE IV ONE (14:17)
[2016-09-20] MEDS ORDERED: Oxycodone/Acetaminophen 5/325 mg Tab PO STA (14:18)
[2016-09-20] MEDS ORDERED: Oxycodone/Acetaminophen 5/325 mg Tab ONE (14:20)
--- NOTE | 2016-09-20 15:05 | CT ---
PROCEDURE: CT HEAD WITHOUT CONTRAST. HISTORY: Trauma assess for intracranial hemorrhage COMPARISON: 05/17/2016. TECHNIQUE: Axial computed tomography images were obtained through the head/brain without intravenous contrast. Supplemental 3D surface rendering Radiation dose: Total exam DLP = 991.19 mGy-cm. This CT exam was performed using one or more of the following dose reduction techniques: Automated exposure control, adjustment of the mA and/or kV according to patient size, and/or use of iterative reconstruction technique. FINDINGS: HEMORRHAGE: No intracranial hemorrhage. BRAIN: No mass effect or edema. Cortical atrophy, periventricular small vessel disease VENTRICLES: Unremarkable. No hydrocephalus. CALVARIUM: Unremarkable. PARANASAL SINUSES: Chronic ethmoid air cell disease. MASTOID AIR CELLS: Unremarkable as visualized. No inflammatory changes. OTHER FINDINGS: None. IMPRESSION: Normal CT of the Head. No acute intracranial abnormalities. No significant findings to account for the clinical presentation. No significant interval change compared to the prior examination(s).
[2016-09-20 15:39] VITALS: BP 156/75; PULSE 76; RESP 17; TEMP 98.1
[2016-09-20 16:03] VITALS: O2SAT 96
--- NOTE | 2016-09-23 08:11 | CARD ---
APPROVED REPORT EKG Measurement Heart [id number] <Conclusion> Normal sinus rhythm Normal ECG
== END 2016-09-20 15:40 | disposition left against medical advice (07) ==
LOC: C.ER 11:14
DX: S70.02XA Contusion of left hip, initial encounter (principal); W06.XXXA Fall from bed, initial encounter; Y93.89 Activity, other specified; Y92.003 Bedroom of unspecified non-institutional (private) residence as the place of occurrence of the external cause; R10.9 Unspecified abdominal pain; I10 Essential (primary) hypertension; Z72.0 Tobacco use
CPT/HCPCS: 70450; 73502; 80053; 80320; 82550; 82553; 83690; 84484; 85025; 93005; 99284; J7040; Q9967

== ENCOUNTER 2016-09-20 17:38 | Emergency (ER) | payer MEDICAID ==
[2016-09-20 17:39] VITALS: BMI 25.8
[2016-09-20 17:46] VITALS: BP 116/78; PULSE 84; RESP 20; TEMP 97.6; O2SAT 98
--- NOTE | 2016-09-20 18:10 | C.PDOC ---
History Of Present Illness <George Munson - Last Filed: 09/20/16 18:48> <Maegan Venegas - Last Filed: 09/20/16 20:15> Patient is a 56 y/o male, with history of alcohol abuse, and HTN, that presents to the ED for evaluation of abdominal pain, Patient was seen here earlier today with similar complaints but eloped from er. pt was being evaluated for a questionable syncope. Patient states he lost balance, and fell on his stoma at home. Pt had negative lab, x-ray, and head CT results earlier today, and states he would like to continue from his previous workup. Pt denies any nausea, vomiting, fever, chills, or any other new complaints at this time. (George Munson) History Per: Patient History/Exam Limitations: no limitations Onset/Duration Of Symptoms: Days Current Symptoms Are (Timing): Still Present Location Of Pain/Discomfort: Diffuse Radiation Of Pain To:: None Quality Of Discomfort: "Pain" Associated Symptoms: denies: Fever, Chills, Nausea, Vomiting, Diarrhea, Loss Of Appetite, Back Pain, Chest Pain, Constipation, Urinary Symptoms Exacerbating Factors: None Alleviating Factors: None Recent travel outside of the [place]: No Additional History Per: Patient, Prior Records <George Munson - Last Filed: 09/20/16 18:48> <Maegan Venegas - Last Filed: 09/20/16 20:15> Time Seen by Provider: 09/20/16 17:44 Chief Complaint (Nursing): Abdominal Pain Past Medical History Reviewed: Historical Data, Nursing Documentation, Vital Signs - Medical History PMH: Anxiety, Arthritis (L HIP; BACK), Bipolar Disorder, Depression, Fractures ( left elbow), HTN, Schizophrenia, Chronic Pain (Hip) Denies: Diabetes, Hepatitis, HIV, Chronic Kidney Disease, Seizures, Sexually Transmitted Disease Family History: States: Unknown Family Hx - Social History Hx Tobacco Use: Yes Hx Alcohol Use: Yes Hx Substance Use: No - Immunization History Hx Tetanus Toxoid Vaccination: No Hx Influenza Vaccination: No Hx Pneumococcal Vaccination: No <George Munson - Last Filed: 09/20/16 18:48> Review Of Systems Except As Marked, All Systems Reviewed And Found Negative. Constitutional: Negative for: Fever, Chills Gastrointestinal: Positive for: Abdominal Pain. Negative for: Nausea, Vomiting , Diarrhea Musculoskeletal: Negative for: Back Pain <George Munson - Last Filed: 09/20/16 18:48> Physical Exam - Physical Exam Appears: Non-toxic, No Acute Distress Skin: Normal Color, Warm, Dry Head: Atraumatic, Normacephalic Eye(s): bilateral: Normal Inspection, EOMI Neck: Normal ROM, Supple Chest: Symmetrical, No Tenderness Cardiovascular: Rhythm Regular, No Murmur Respiratory: Normal Breath Sounds, No Rales, No Rhonchi, No Wheezing Gastrointestinal/Abdominal: Soft, Tenderness (mild diffuse, non-focal), No Guarding, No Rebound, Other (stoma in place, non-bleeding) Extremity: Normal ROM Neurological/Psych: Oriented x3, Normal Speech, Normal Cognition <George Munson - Last Filed: 09/20/16 18:48> ED Course And Treatment O2 Sat by Pulse Oximetry: 98 (on RA) Pulse Ox Interpretation: Normal Progress Note: Abd & pelvis CT ordered and reviewed. <George Munson - Last Filed: 09/20/16 18:48> Pulse Ox Interpretation: Normal Progress Note: 7:14 PM went to examine the pt, but pt had eloped. <Maegan Venegas - Last Filed: 09/20/16 20:15> Medical Decision Making <George Munson - Last Filed: 09/20/16 18:48> <Maegan Venegas - Last Filed: 09/20/16 20:15> Medical Decision Making: pt with recent elopement, left prior to abd pelvis ct. will obtain imaging, reassess. (George Munson) Disposition <George Munson - Last Filed: 09/20/16 18:48> Counseled Patient/Family Regarding: Studies Performed, Diagnosis - Disposition Disposition Time: 19:20 <Maegan Venegas - Last Filed: 09/20/16 20:15> - Disposition Disposition: ELOPEMENT - ER ONLY Condition: UNKNOWN - Clinical Impression Clinical Impression: Abdominal pain - Scribe Statement The provider has reviewed the documentation as recorded by the Scribe <George Munson - Last Filed: 09/20/16 18:48> <Sapira,Valdi - Last Filed: 09/20/16 20:15> - Scribe Statement Mary Kuhn (George Munson) Provider Attestation: All medical record entries made by the Scribe were at my direction and personally dictated by me. I have reviewed the chart and agree that the record accurately reflects my personal performance of the history, physical exam, medical decision making, and the department course for this patient. I have also personally directed, reviewed, and agree with the discharge instructions and disposition. (George Munson)
[2016-09-20] MEDS ORDERED: Iodixanol 320 MG/ML 100 ML BOTTLE IV ONE (18:20)
--- NOTE | 2016-09-20 19:34 | CT ---
EXAM: CT Abdomen and Pelvis With Intravenous Contrast CLINICAL HISTORY: 56 years old, male; Injury or trauma; Fall; Initial encounter; Crushing; Additional info: Abd pain, fall TECHNIQUE: Axial computed tomography images of the abdomen and pelvis with intravenous contrast. This CT exam was performed using one or more of the following dose reduction techniques: automated exposure control, adjustment of the mA and/or kV according to patient size, and/or use of iterative reconstruction technique. Coronal and sagittal reformatted images were created and reviewed. CONTRAST: 100 mL of [id number] administered intravenously. EXAM DATE/TIME: Exam ordered 09/20/2016 5:58 PM COMPARISON: CR - HIP AALIYAH W/WO PELVIS 3-4 VIEWS 05/24/2015 1:08:57 PM FINDINGS: Lower thorax: No acute findings. ABDOMEN: Liver: The liver is generally low in density indicating hepatic steatosis. Gallbladder and bile ducts: The common bile duct measures 1. 3 cm. A calcification is noted along the liver capsule posteriorly and inferiorly. Pancreas: Unremarkable. No mass. No ductal dilation. Spleen: Unremarkable. No splenomegaly. Adrenals: Unremarkable. No mass. Kidneys and ureters: There are 3 less than 5 mm areas of low density noted in the right kidney not fully characterized due to their small size. In the left kidney, there are 6 low density lesions.. The largest measures 1.3 cm and has a density reading of 20 H. Stomach and bowel: There is an ostomy in the left lower quadrant. The ostomy contains an afferent and efferent loop of the descending colon with fat herniated between the loops. No obstruction. No mucosal thickening. Appendix: No findings to suggest acute appendicitis. PELVIS: Bladder: Unremarkable. No mass. Reproductive: Unremarkable as visualized. ABDOMEN and PELVIS: Intraperitoneal space: Unremarkable. No free air. No significant fluid collection. Bones/joints: A there's been a left total hip arthroplasty. There is beam hardening artifact associated with the prosthesis. There is a fracture of the left ninth rib anteriorly. Advanced degenerative changes are noted in the facet joints at L4-5 and L5-S1. Impression: 1. Fracture of the left ninth rib anteriorly 2. Hepatic steatosis 3. Dilated common bile duct of 1.3 cm. There is no intrahepatic ductal dilatation. There is no pancreatic ductal dilatation. The possibility of a distal stricture or might be considered. 3. Hernia associated with the left lower quadrant ostomy. No evidence of obstruction or strangulation. 4. Numerous subcentimeter low density renal lesions not fully characterized due to their small size. 5. Hepatic steatosis. 6. Scattered intra-abdominal calcifications. These could be calcified lymph nodes or dystrophic calcifications. Images were attached to this report and are available at [email or web address]
== END 2016-09-20 19:15 | disposition left against medical advice (07) ==
LOC: C.ER 17:38
DX: R10.9 Unspecified abdominal pain (principal); I10 Essential (primary) hypertension; F17.210 Nicotine dependence, cigarettes, uncomplicated
CPT/HCPCS: 74177; 99285; Q9967

== ENCOUNTER 2016-09-26 15:27 | Inpatient (IN) | payer MEDICAID ==
[2016-09-26 15:43] VITALS: BMI 27.4
[2016-09-26] MEDS ORDERED: Naloxone 0.4 mg/ml Inj (Adult) IVP ONE (15:50)
--- NOTE | 2016-09-26 15:59 | C.PDOC ---
History Of Present Illness 56-year-old male, PMHx includes Anxiety, Arthritis, Bipolar Disorder, Depression , Hypertension, and Schizophrenia, is brought to the emergency department by EMS (acting as historians) with complaints of AMS. As per EMS, patients stated that patient has been progressively altered since 12:00 this afternoon. Patient has a Hx of drug abuse, but recent use is unknown. Pt was given 2mg of Narcan on field with no improvement. All other Hx limited due to clinical condition. Patient is non-verbal. Time Seen by Provider: 09/26/16 15:30 Chief Complaint (Nursing): Substance Abuse History Per: Patient History/Exam Limitations: no limitations Onset/Duration Of Symptoms: Days Past Medical History Reviewed: Historical Data, Nursing Documentation, Vital Signs Vital Signs: Last Vital Signs Temp 97.1 F L 09/26/16 16:48 Pulse 88 09/26/16 17:46 Resp 13 09/26/16 17:46 BP 167/110 H 09/26/16 17:46 Pulse Ox 100 09/26/16 17:46 - Medical History PMH: Anxiety, Arthritis (L HIP; BACK), Bipolar Disorder, Depression, Fractures ( left elbow), HTN, Schizophrenia, Chronic Pain (Hip) Denies: Diabetes, Hepatitis, HIV, Chronic Kidney Disease, Seizures, Sexually Transmitted Disease - [facility] Procedures APPLICATION OF SPLINT (10/17/14) BYPASS SIGMOID COLON TO CUTANEOUS, OPEN APPROACH (06/20/16) CHANGE PACKING MATERIAL ON RIGHT UPPER LEG (06/20/16) DESTRUCTION OF BACK SKIN, EXTERNAL APPROACH (06/20/16) DESTRUCTION OF BACK SKIN, MULTIPLE, EXTERNAL APPROACH (06/20/16) DETOXIFICATION SERVICES FOR SUBSTANCE ABUSE TREATMENT (06/20/16) EXCISION OF BACK SKIN, EXTERNAL APPROACH (06/20/16) EXCISION OF BACK SKIN, EXTERNAL APPROACH, DIAGNOSTIC (06/20/16) EXCISION OF BUTTOCK SKIN, EXTERNAL APPROACH (06/20/16) EXCISION OF LEFT UPPER LEG SKIN, EXTERNAL APPROACH (06/20/16) EXCISION OF RIGHT UPPER LEG SKIN, EXTERNAL APPROACH (06/20/16) GROUP DATABASE DEVELOPMENT PROJECT MANAGER FOR SUBSTANCE ABUSE TREATMENT, PSYCHOEDUCATION (03/31/16) INSERTION OF INFUSION DEV INTO SUP VENA CAVA, PERC APPROACH (06/20/16) REPAIR BUTTOCK SKIN, EXTERNAL APPROACH (06/20/16) REPAIR LOWER VEIN, OPEN APPROACH (06/20/16) REPLACE BUTTOCK SKIN W AUTOL SUB, PART THICK, AUTOMOTIVE TEACHER (06/20/16) REPLACE SKIN W PORC LIVR SUB, AUTOMOTIVE TEACHER, NEW TECH 2 (06/20/16) RESPIRATORY VENTILATION, 24-96 CONSECUTIVE HOURS (01/13/16) RESPIRATORY VENTILATION, LESS THAN 24 CONSECUTIVE HOURS (10/09/15) TRANSFER BUTTOCK SKIN, EXTERNAL APPROACH (06/20/16) Family History: States: No Known Family Hx - Social History Hx Tobacco Use: Yes Hx Alcohol Use: Yes Hx Substance Use: No - Immunization History Hx Tetanus Toxoid Vaccination: No Hx Influenza Vaccination: No Hx Pneumococcal Vaccination: No Review Of Systems Review Of Systems: ROS cannot be obtained secondary to pt's inabilty to answer questions. Physical Exam - Physical Exam Appears: Other (NON-VERBAL. ALTERED. MOD DISTRESS) Head: Atraumatic, Normacephalic Eye(s): bilateral: Other (2MM. SLUGGISH) Respiratory: Other (APNEIC. AGONAL RESPIRATIONS. POOR GAG REFLEX) Gastrointestinal/Abdominal: Other (COLOSTOMY IN PLACE) Neurological/Psych: Other (WITHDRAWS TO PAIN, SLUGGISH. ) ED Course And Treatment - Laboratory Results Result Diagrams: 09/26/16 16:42 09/26/16 16:42 ECG: Interpreted By Nj ECG Rhythm: Sinus Rhythm ECG Interpretation: Normal Rate From EC Progress - Re-Evaluation Re-evaluation Note: 09/26/16 15:48 NASAL TRUMPET INSERTED S/P NARCAN 1.6 MG WO RESPONSE. PERSIST APNEA, POOR GAG. VS UNCH 09/26/16 15:50 PT PERSIST UNSECURED AIRWAY. WILL INTUBATE. 09/26/16 16:15 NO FAMILY @ BEDSIDE. MSG LEFT NEXT OF KIN LISTED IN CHART. 09/26/16 16:29 D/W DR CARDONA AWARE OF ER FINDINGS, PENDING CT AND LAB RESULTS. REQUESTS CALLBACK CT REPORT PRIOR TO DISPO 09/26/16 17:33 BILIOUS FLUID FROM MOUTH. OGT FLUSHED W IMPROVED SUCTION. 09/26/16 17:38 D/W DR CINDA FLYNN FLAME CUTTING MACHINE OPERATOR HELPER WILL ADMIT. CT PENDING. - Data Reviewed Data Reviewed: Lab, Diagnostic imaging, EKG, Old records - Critical Care Citical Care: Excluding Proc Time Critical Care Time: 120 minutes - Continuity of Care Discussed pt. case with portrait consultant/specialty: Pulmonary/Crit. Care Medical Decision Making Medical Decision Makin:40 Nasal trumpet inserted into left nare without difficulty. Patient tolerated the procedure. No complications. PROCEDURE: INTUBATION Performed by the emergency provider Time: 15:50 Consent:Discussion of the risks, benefits, and alternatives to the procedure, along with informed consent was precluded by the urgency of the procedure and the patient condition. Timeout:A timeout to verify the correct patient, procedure, and site was performed. Pre-oxygenation: [id number] Medications: 20mg Etomidate and 100mg Succinylcholine ETT Size: 7.5 Confirmation:Cords directly visualized as tube passed, good bilateral breath sounds, positive CO2 detector color change, tube fogging, adequate chest rise, improving pulse oximetry reading, improved skin color, and absence of gastric sounds,. ETT Secured:The cuff was inflated and the tube was secured appropriately at a distance of 23cm at the lip. Post-Procedure:There were no immediate complications. CXR Confirmation: Yes PROCEDURE: NASOGASTROSTRIC TUBE PLACEMENT Performed by the emergency provider Consent:Discussion of the risks, benefits, and alternatives to the procedure, along with informed consent was precluded by the urgency of the procedure and the patient condition. Timeout:A timeout to verify the correct patient, procedure, and site was performed immediately prior to the procedure. Gastrostomy Tube Size: 18 OG Latvian w/ bilious return. Confirmation:Gastrostomy tube placement was verified by CXR Post-procedure: no immediate complications Disposition Counseled Patient/Family Regarding: Studies Performed, Diagnosis - Disposition Disposition: HOSPITALIZED Disposition Time: 17:38 Condition: CRITICAL - POA Present On Arrival: None - Clinical Impression Clinical Impression: Elevated LFTs, Alcohol abuse, Altered mental state, Respiratory failure, Hypokalemia - Scribe Statement The provider has reviewed the documentation as recorded by the Sabiha llanes All medical record entries made by the Scribe were at my direction and personally dictated by me. I have reviewed the chart and agree that the record accurately reflects my personal performance of the history, physical exam, medical decision making, and the department course for this patient. I have also personally directed, reviewed, and agree with the discharge instructions and disposition. Decision To Admit - Pt Status Changed To: Hospital Disposition Of: Inpatient - Admit Certification Admit to Inpatient:: After my assessment, the patient will require hospitalization for at least two midnights. This is because of the severity of symptoms shown, intensity of services needed, and/or the medical risk in this patient being treated as an outpatient. - InPatient: Physician Admission Certification: I certify that this patient requires 2 or more midnights of care for the following reason:: SEE NOTE - . Bed Request Type: ICU Admitting Physician: Fidel Lemon Jr. Patient Diagnosis: Elevated LFTs, Alcohol abuse, Altered mental state, Respiratory failure, Hypokalemia
[2016-09-26] MEDS ORDERED: Etomidate 20 mg/10ml Inj IV ONE ×2 (16:00)
[2016-09-26] MEDS ORDERED: Midazolam 2 MG/2 ML VIAL ONE (16:04)
[2016-09-26] MEDS ORDERED: Sodium Chloride 0.9% 1,000 ML IV ONE (16:08)
[2016-09-26] MEDS ORDERED: Propofol 10 mg/ml 1,000 MG/100 ML VIAL IV PRN (16:08)
[2016-09-26 16:46] LABS: BASO % 0.8 % (0.0-2.0); EOS # 0.4 K/uL (0.0-0.7); EOS % 6.4 % (0.0-4.0); HEMATOCRIT 35.7 % (35.0-51.0); LYMPH # 2.9 K/uL (1.0-4.3); MEAN CELL VOLUME 91.9 fL (80.0-94.0); MEAN CORPUSCULAR HEMOGLOBIN 30.5 pg (27.0-31.0); MEAN CORPUSCULAR HGB CONC 33.2 g/dL (33.0-37.0); MEAN PLATELET VOLUME 7.1 fL (7.2-11.7); MONO # 0.6 K/uL (0.0-0.8); MONO % 9.5 % (0.0-10.0); NRBC % 0.1 % (0.0-2.0); RED CELL DISTRIBUTION WIDTH 14.2 % (11.5-14.5); WHITE BLOOD COUNT 6.1 K/uL (4.8-10.8)
[2016-09-26 16:48] LABS: RBC URINE 1 /hpf (0-3); URINE BACTERIA RARE (<OCC); URINE BILIRUBIN NEGATIVE (NEGATIVE); URINE BLOOD 1+ (NEGATIVE); URINE COLOR Yellow (YELLOW); URINE GLUCOSE (UA) NORMAL (Normal); URINE KETONE NEGATIVE (NEGATIVE); URINE LEUKOCYTE ESTERASE NEG Leu/uL (Negative); URINE PROTEIN NEGATIVE (NEGATIVE); URINE UROBILINOGEN NORMAL mg/dL (0.2-1.0); WBC URINE < 1 /hpf (0-5)
[2016-09-26 16:57] LABS: CHLORIDE 109 mmol/L (98-107)
[2016-09-26 16:58] LABS: POTASSIUM 2.8 mmol/L (3.6-5.2); SODIUM 142 mmol/L (132-148)
[2016-09-26 17:00] LABS: ALB/GLOB RATIO 1.2 (1.0-2.1); ALKALINE PHOSPHATASE 79 U/L (38-126); ALT/SGPT 190 U/L (21-72); AST/SGOT 203 U/L (17-59); BILIRUBIN,TOTAL 0.6 mg/dL (0.2-1.3); CARBON DIOXIDE 20 mmol/L (22-30); GFR AFRICAN-AMERICAN > 60; TOTAL PROTEIN 6.5 g/dL (6.3-8.3)
[2016-09-26 17:01] LABS: ALCOHOL SERUM 197 mg/dl (0-10); BLOOD UREA NITROGEN 12 mg/dL (9-20); CALCIUM 7.4 mg/dl (8.6-10.4); GLUCOSE,RANDOM 78 mg/dL (75-110)
[2016-09-26] MEDS ORDERED: Propranolol 1 mg/mL Inj IVP ONE (17:35)
[2016-09-26] MEDS ORDERED: Propofol 10 mg/ml Inj (20 ML) IV STA (17:39)
[2016-09-26 17:50] LABS: ABG ALLEN TEST A; ABG MECHANICAL RATE 14; ATERIAL BLOOD GAS PEEP 5; DRAW SITE LR
[2016-09-26] MEDS ORDERED: (Novolin R) Insulin Human Regular 100 units/ml vial SC SCH (18:00)
--- NOTE | 2016-09-26 18:34 | RAD ---
PROCEDURE: CHEST RADIOGRAPH, 1 VIEW HISTORY: AMS sp ett COMPARISON: Comparison chest 06/20/2016 FINDINGS: Lies approximately LUNGS: In situ ETT, tip of which lies approximately 5 cm above dudley. NGT is present, the tip of which overlies left upper quadrant of the abdomen. Note made of a fracture left lateral 10th rib PLEURA: No pneumothorax or pleural fluid seen. CARDIOVASCULAR: Normal. OSSEOUS STRUCTURES: No significant abnormalities. VISUALIZED UPPER ABDOMEN: Normal. OTHER FINDINGS: None. IMPRESSION: ETT and NGT as above. Fracture left lateral 5th rib
[2016-09-26] MEDS ORDERED: Propofol 10 mg/ml Inj (100 ml) IV SCH (18:45)
[2016-09-26] MEDS ORDERED: Propofol 10 mg/ml Inj (20 ML) IVP STA (18:53)
--- NOTE | 2016-09-26 18:55 | CT ---
EXAM: CT Head Without Intravenous Contrast CLINICAL HISTORY: 56 years old, male; Signs and symptoms; Altered mental status/memory loss; Additional info: Intubated patient TECHNIQUE: Axial computed tomography images of the head/brain without intravenous contrast. This CT exam was performed using one or more of the following dose reduction techniques: automated exposure control, adjustment of the mA and/or kV according to patient size, and/or use of iterative reconstruction technique. Coronal and sagittal reformatted images were created and reviewed. EXAM DATE/TIME: 09/26/2016 4:09 PM COMPARISON: CT - HEAD W/O (CODE STROKE) 05/22/2016 12:09:50 AM. Report of the prior study is not available for review. FINDINGS: Brain: Ventricles are normal in size and configuration. There is no midline shift. There is mild prominence of sulci and gyri, unchanged. There are no intra-axial or extra-axial mass lesions or areas of hemorrhage. There are no abnormal fluid collections. Ware-white differentiation is maintained. Ventricles: See above. Bones: Cranial vault is intact. Soft tissues: unremarkable Sinuses: There is no acute sinusitis. There is mucoperiosteal thickening in the ethmoid air cells. There is opacification of the left nasal cavity. Ears and mastoids: Middle ears and mastoids are unremarkable Orbits: Orbital contents are unremarkable. IMPRESSION: No acute intracranial abnormality
[2016-09-26] MEDS ORDERED: HYDROmorphone 1 mg/ml ISec IVP STA (21:16)
[2016-09-26] MEDS: Sodium Chloride 0.9% 1,000 ML IV SCH (22:43)
[2016-09-27] MEDS: Oxycodone/Acetaminophen 5/325 mg Tab PO PRN ×2 (04:51→12:14)
[2016-09-27 07:50] LABS: BASO # 0.1 K/uL (0.0-0.2); BASO % 0.8 % (0.0-2.0); EOS # 0.4 K/uL (0.0-0.7); EOS % 4.3 % (0.0-4.0); HEMATOCRIT 37.5 % (35.0-51.0); LYMPH # 2.1 K/uL (1.0-4.3); LYMPH % 22.5 % (20.0-40.0); MEAN CELL VOLUME 92.3 fL (80.0-94.0); MEAN CORPUSCULAR HEMOGLOBIN 30.3 pg (27.0-31.0); MEAN CORPUSCULAR HGB CONC 32.9 g/dL (33.0-37.0); MEAN PLATELET VOLUME 7.9 fL (7.2-11.7); MONO # 0.8 K/uL (0.0-0.8); MONO % 8.6 % (0.0-10.0); NRBC % 0.1 % (0.0-2.0); RED CELL DISTRIBUTION WIDTH 14.1 % (11.5-14.5)
[2016-09-27 07:59] LABS: WHITE BLOOD COUNT 9.4 K/uL (4.8-10.8)
[2016-09-27] MEDS ORDERED: Sodium Phosphate 15 MMOLE in Sodium Chloride 0.9% 250 ML IVPB ONE (08:30)
[2016-09-27] MEDS: Sodium Chloride 0.9% 1,000 ML IV SCH (08:48)
[2016-09-27 08:51] LABS: CHLORIDE 104 mmol/L (98-107)
[2016-09-27 08:52] LABS: POTASSIUM 3.3 mmol/L (3.6-5.2); SODIUM 139 mmol/L (132-148)
[2016-09-27 08:54] LABS: ALB/GLOB RATIO 1.2 (1.0-2.1); ALKALINE PHOSPHATASE 88 U/L (38-126); AST/SGOT 199 U/L (17-59); BILIRUBIN,TOTAL 0.8 mg/dL (0.2-1.3); BLOOD UREA NITROGEN 11 mg/dL (9-20); CARBON DIOXIDE 24 mmol/L (22-30); GFR AFRICAN-AMERICAN > 60; GLUCOSE,RANDOM 86 mg/dL (75-110); PHOSPHOROUS 2.9 mg/dL (2.5-4.5)
[2016-09-27 08:55] LABS: ALT/SGPT 210 U/L (21-72); CALCIUM 8.2 mg/dl (8.6-10.4); MAGNESIUM 1.4 mg/dL (1.6-2.3)
--- NOTE | 2016-09-27 10:49 | RAD ---
PROCEDURE: CHEST RADIOGRAPH, 1 VIEW HISTORY: ETT ADJUST COMPARISON: Made with prior study 09/26/2016. FINDINGS: LUNGS: In situ ETT, tip of which lies approximately 6.1 cm above dudley. NGT is present, the tip of which overlies left upper quadrant of the abdomen. Lung reyes are clear however note that the right lower lateral angie thorax has been excluded from the radiograph. PLEURA: No pneumothorax or pleural fluid seen. CARDIOVASCULAR: Heart size within range of normal OSSEOUS STRUCTURES: No significant abnormalities. VISUALIZED UPPER ABDOMEN: Normal. OTHER FINDINGS: None. IMPRESSION: ETT and NGT as above. No acute infiltrates on this limited study which excludes the right lateral lower angie thorax
[2016-09-27 10:57] VITALS: O2SAT 95
[2016-09-27 12:48] VITALS: BP 164/84; PULSE 76; RESP 18; TEMP 98
--- NOTE | 2016-09-27 15:10 | CP.PCM.PN ---
<GayathriDolores - Last Filed: 09/27/16 15:03> Subjective - Date & Time of Evaluation Date of Evaluation: 09/27/16 Time of Evaluation: 07:00 - Subjective Subjective: HOUSE DOCTOR NOTE House doctor paged. Patient wanted to sign out AMA. Patient reports his is very sick and he wants to leave to take care of her. Patient made aware of the risks of leaving, such as cardiac arrest, stroke, seizures, respiratory failure. Patient stated he understood the risks and wanted to sign out AMA. Nurse witnessed. Objective - Vital Signs/Intake and Output Vital Signs (last 24 hours): Temp Pulse Resp BP Pulse Ox 98 F 76 18 164/84 H 95 09/27/16 12:00 09/27/16 12:00 09/27/16 12:00 09/27/16 12:00 09/27/16 12:00 Intake and Output: 09/27/16 09/27/16 06:59 18:59 Intake Total 1350 980 Output Total 1355 Balance -5 980 - Medications Medications: Current Medications Folic Acid (Folic Acid) 1 mg PO DAILY [facility] Last Admin: 09/27/16 09:14 Dose: 1 mg Sodium Chloride (Sodium Chloride 0.9%) 1,000 mls @ 100 mls/hr IV .Q10H [facility] Last Admin: 09/27/16 08:48 Dose: 100 mls/hr Oxycodone/Acetaminophen (Percocet 5/325 Mg Tab) 1 tab PO Q4H PRN PRN Reason: Pain, moderate (4-7) Stop: 09/29/16 21:18 Last Admin: 09/27/16 12:14 Dose: 1 tab Pneumococcal Polyvalent Vaccine (Pneumovax 23 Vaccine) 0.5 ml SC .ONCE ONE Stop: 09/28/16 10:01 Thiamine HCl (Vitamin B1 Tab) 100 mg PO DAILY [facility] Last Admin: 09/27/16 09:14 Dose: 100 mg - Labs Labs: 09/27/16 07:30 09/27/16 07:30 <Fidel Lemon Jr. - Last Filed: 10/03/16 18:50> Objective - Vital Signs/Intake and Output Vital Signs (last 24 hours): Temp Pulse Resp BP Pulse Ox 98 F 76 18 164/84 H 95 09/27/16 12:00 09/27/16 12:00 09/27/16 12:00 09/27/16 12:00 09/27/16 12:00 - Labs Labs: 09/27/16 07:30 09/27/16 07:30 Attending/Attestation - Attestation I have personally seen and examined this patient.: Yes I have fully participated in the care of the patient.: Yes I have reviewed all pertinent clinical information, including history, physical exam and plan: Yes Notes (Text): 10/03/16 18:50 Agree with resident's findings
[2016-09-28] MEDS ORDERED: Pneumococcal 23-Valent Vaccine SC ONE (10:00)
--- NOTE | 2016-10-02 16:39 | CARD ---
APPROVED REPORT EKG Measurement Heart [id number] <Conclusion> Normal sinus rhythm Normal ECG
== END 2016-09-27 15:14 | disposition left against medical advice (07) | DRG 882 ==
LOC: C.ER 15:27 → C.9I 18:44 → C.3T 09-27 12:39
PROVIDERS: ADMIT Internal Medicine; ATTEND Internal Medicine
PROC: 0BH17EZ Insertion of Endotracheal Airway into Trachea, Via Natural or Artificial Opening (ICD-10-PCS; principal; 2016-09-26)
PROC: 5A1935Z Respiratory Ventilation, Less than 24 Consecutive Hours (ICD-10-PCS; 2016-09-26)
PROC: 0DH63UZ Insertion of Feeding Device into Stomach, Percutaneous Approach (ICD-10-PCS; 2016-09-26)
DX: J96.90 Respiratory failure, unspecified, unspecified whether with hypoxia or hypercapnia (principal); F20.9 Schizophrenia, unspecified; I10 Essential (primary) hypertension; E87.6 Hypokalemia; F41.9 Anxiety disorder, unspecified; F31.9 Bipolar disorder, unspecified; G89.29 Other chronic pain; M25.559 Pain in unspecified hip; F17.210 Nicotine dependence, cigarettes, uncomplicated; F10.10 Alcohol abuse, uncomplicated; R79.89 Other specified abnormal findings of blood chemistry; R41.82 Altered mental status, unspecified

== ENCOUNTER 2016-10-16 12:07 | Emergency (ER) | payer MEDICAID ==
[2016-10-16 12:08] VITALS: BMI 25.8
[2016-10-16 12:12] VITALS: TEMP 97.8
--- NOTE | 2016-10-16 15:31 | C.PDOC ---
History Of Present Illness Pt states he fell out of bed 3 days ago and landed on his colostomy site. He states that is was bleeding at the beginning but later stopped. He states he has an appointment with Dr. Anguiano today but he came to the ED instead. Time Seen by Provider: 10/16/16 13:22 Chief Complaint (Nursing): Abdominal Pain History Per: Patient Onset/Duration Of Symptoms: Days (3) Current Symptoms Are (Timing): Better Context: Recent Trauma (Pt states he fell out of bed and landed on his ostomy) Severity: Moderate Location Of Pain/Discomfort: LLQ (Ostomy site) Quality Of Discomfort: Unable To Describe, "Pain" Additional History Per: Prior Records Past Medical History Reviewed: Historical Data, Nursing Documentation, Vital Signs Vital Signs: Last Vital Signs Temp 97.8 F 10/16/16 12:08 Pulse 109 H 10/16/16 12:08 Resp 12 10/16/16 12:08 BP 140/94 H 10/16/16 12:08 Pulse Ox 98 10/16/16 12:08 - Medical History PMH: Anxiety, Arthritis (L HIP; BACK), Bipolar Disorder, Depression, Fractures ( left elbow), HTN, Schizophrenia, Chronic Pain (Hip) Other Surgeries: Colostomy - [facility] Procedures APPLICATION OF SPLINT (10/17/14) BYPASS SIGMOID COLON TO CUTANEOUS, OPEN APPROACH (06/20/16) CHANGE PACKING MATERIAL ON RIGHT UPPER LEG (06/20/16) DESTRUCTION OF BACK SKIN, EXTERNAL APPROACH (06/20/16) DESTRUCTION OF BACK SKIN, MULTIPLE, EXTERNAL APPROACH (06/20/16) DETOXIFICATION SERVICES FOR SUBSTANCE ABUSE TREATMENT (06/20/16) EXCISION OF BACK SKIN, EXTERNAL APPROACH (06/20/16) EXCISION OF BACK SKIN, EXTERNAL APPROACH, DIAGNOSTIC (06/20/16) EXCISION OF BUTTOCK SKIN, EXTERNAL APPROACH (06/20/16) EXCISION OF LEFT UPPER LEG SKIN, EXTERNAL APPROACH (06/20/16) EXCISION OF RIGHT UPPER LEG SKIN, EXTERNAL APPROACH (06/20/16) GROUP PROGRAM MANAGER FOR SUBSTANCE ABUSE TREATMENT, PSYCHOEDUCATION (03/31/16) INSERTION OF ENDOTRACHEAL AIRWAY INTO TRACHEA, VIA OPENING (09/26/16) INSERTION OF FEEDING DEVICE INTO STOMACH, PERC APPROACH (09/26/16) INSERTION OF INFUSION DEV INTO SUP VENA CAVA, PERC APPROACH (06/20/16) REPAIR BUTTOCK SKIN, EXTERNAL APPROACH (06/20/16) REPAIR LOWER VEIN, OPEN APPROACH (06/20/16) REPLACE BUTTOCK SKIN W AUTOL SUB, PART THICK, CIGARETTE MACHINES MECHANIC (06/20/16) REPLACE SKIN W PORC LIVR SUB, CIGARETTE MACHINES MECHANIC, NEW TECH 2 (06/20/16) RESPIRATORY VENTILATION, 24-96 CONSECUTIVE HOURS (01/13/16) RESPIRATORY VENTILATION, LESS THAN 24 CONSECUTIVE HOURS (09/26/16) TRANSFER BUTTOCK SKIN, EXTERNAL APPROACH (06/20/16) Family History: States: Unknown Family Hx - Social History Hx Tobacco Use: Yes Hx Alcohol Use: Yes Hx Substance Use: Yes - Immunization History Hx Tetanus Toxoid Vaccination: No Hx Influenza Vaccination: No Hx Pneumococcal Vaccination: No Review Of Systems Except As Marked, All Systems Reviewed And Found Negative. Constitutional: Negative for: Fever Gastrointestinal: Negative for: Vomiting, Hematochezia Musculoskeletal: Negative for: Neck Pain Neurological: Negative for: Weakness, Headache Physical Exam - Physical Exam Appears: No Acute Distress Skin: Normal Color, Warm, Dry Head: Atraumatic Eye(s): bilateral: PERRL, EOMI Neck: Normal ROM, No Midline Cervical Tenderness, No Step Off Deformity, Supple Cardiovascular: Rhythm Regular Respiratory: Normal Breath Sounds, No Accessory Muscle Use Gastrointestinal/Abdominal: Soft, Other (Colostomy with no bleeding, looks unremarkable. Pt states it has been puting out stool as usual. ) Extremity: Normal ROM, No Deformity Neurological/Psych: Oriented x3, Normal Motor, Normal Sensation ED Course And Treatment O2 Sat by Pulse Oximetry: 98 Pulse Ox Interpretation: Normal Disposition Discussed With : Kash Anguiano Comment: He states that there is nothing to do for this in the ED and wants to see pt in his office. Doctor Will See Patient In The: Office Counseled Patient/Family Regarding: Diagnosis, Need For Followup - Disposition Referrals: Kash Anguiano MD [Staff Provider] - Disposition: HOME/ ROUTINE Disposition Time: 15:33 Condition: STABLE Additional Instructions: Follow up with Dr. Anguiano as soon as possible. Return to the ER if you develop fever, vomiting, bloody stools, worsening of symptoms or if you have any other concerns. Instructions: Colostomy Care (ED) - Clinical Impression Clinical Impression: Encounter for attention to colostomy
[2016-10-16 15:41] VITALS: BP 142/79; PULSE 92; RESP 18; O2SAT 100
== END 2016-10-16 15:41 | disposition home or self-care (01) ==
LOC: C.ER 12:07
DX: Z43.3 Encounter for attention to colostomy (principal)

== ENCOUNTER 2016-10-25 14:36 | Emergency (ER) | payer MEDICAID ==
[2016-10-25 14:36] VITALS: BMI 27.3
[2016-10-25 14:44] VITALS: TEMP 99
[2016-10-25] MEDS ORDERED: Iohexol 240 (50 ml) PO STA (15:20)
[2016-10-25] MEDS ORDERED: Sodium Chloride 0.9% 1,000 ML IV ONE (15:20)
--- NOTE | 2016-10-25 15:20 | C.PDOC ---
History Of Present Illness POOR HISTORIAN 56-YEAR-OLD MALE, PRESENTS TO THE EMERGENCY DEPARTMENT S/P OVERDOSE CANDY BUTCHER. PS TOOK 5 PERCOCET CANDY BUTCHER DUE TO COLOSTOMY PAIN X SEV DAYS. PATIENTS LAST COLOSTOMY OUTPUT YESTERDAY. PT HAS GENERALIZED PAIN. DENIES SI/SA. NO OTHER ASSOC SX, DRUGS. PMHx includes HTN and seizure disorder, CHRONIC PAIN, NARCOTIC ABUSE. ROS LIMITED EXAM MOD NARC INTOX AWAKES TO VOICE ABD +COLOSTOMY NO BLEEDING, OUTPUT NO FOCAL TEND. PSYCH NO SI ACTIVE PSYCHOSIS; NARC INTOX Time Seen by Provider: 10/25/16 15:00 Chief Complaint (Nursing): Substance Abuse History Per: Patient, EMS History/Exam Limitations: clinical condition Past Medical History Reviewed: Historical Data, Nursing Documentation, Vital Signs Vital Signs: Last Vital Signs Temp 99 F 10/25/16 14:41 Pulse 87 10/25/16 14:41 Resp 18 10/25/16 14:41 BP 109/69 10/25/16 14:41 Pulse Ox 95 10/25/16 16:25 - Medical History PMH: Anxiety, Arthritis (L HIP; BACK), Bipolar Disorder, Depression, Fractures ( left elbow), HTN, Schizophrenia, Chronic Pain (Hip) Denies: Seizures, Sexually Transmitted Disease - [facility] Procedures APPLICATION OF SPLINT (10/17/14) BYPASS SIGMOID COLON TO CUTANEOUS, OPEN APPROACH (06/20/16) CHANGE PACKING MATERIAL ON RIGHT UPPER LEG (06/20/16) DESTRUCTION OF BACK SKIN, EXTERNAL APPROACH (06/20/16) DESTRUCTION OF BACK SKIN, MULTIPLE, EXTERNAL APPROACH (06/20/16) DETOXIFICATION SERVICES FOR SUBSTANCE ABUSE TREATMENT (06/20/16) EXCISION OF BACK SKIN, EXTERNAL APPROACH (06/20/16) EXCISION OF BACK SKIN, EXTERNAL APPROACH, DIAGNOSTIC (06/20/16) EXCISION OF BUTTOCK SKIN, EXTERNAL APPROACH (06/20/16) EXCISION OF LEFT UPPER LEG SKIN, EXTERNAL APPROACH (06/20/16) EXCISION OF RIGHT UPPER LEG SKIN, EXTERNAL APPROACH (06/20/16) GROUP REPLENISHMENT SPECIALIST FOR SUBSTANCE ABUSE TREATMENT, PSYCHOEDUCATION (03/31/16) INSERTION OF ENDOTRACHEAL AIRWAY INTO TRACHEA, VIA OPENING (09/26/16) INSERTION OF FEEDING DEVICE INTO STOMACH, PERC APPROACH (09/26/16) INSERTION OF INFUSION DEV INTO SUP VENA CAVA, PERC APPROACH (06/20/16) REPAIR BUTTOCK SKIN, EXTERNAL APPROACH (06/20/16) REPAIR LOWER VEIN, OPEN APPROACH (06/20/16) REPLACE BUTTOCK SKIN W AUTOL SUB, PART THICK, AUTO LOCATOR (06/20/16) REPLACE SKIN W PORC LIVR SUB, AUTO LOCATOR, NEW TECH 2 (06/20/16) RESPIRATORY VENTILATION, 24-96 CONSECUTIVE HOURS (01/13/16) RESPIRATORY VENTILATION, LESS THAN 24 CONSECUTIVE HOURS (09/26/16) TRANSFER BUTTOCK SKIN, EXTERNAL APPROACH (06/20/16) Family History: States: No Known Family Hx - Social History Hx Tobacco Use: Yes Hx Alcohol Use: Yes Hx Substance Use: Yes - Immunization History Hx Tetanus Toxoid Vaccination: No Hx Influenza Vaccination: No Hx Pneumococcal Vaccination: No Review Of Systems Review Of Systems: ROS cannot be obtained secondary to pt's inabilty to answer questions. Physical Exam - Physical Exam Appears: Non-toxic, No Acute Distress, Other (MOD NARC INTOX AWAKES TO VOICE) Skin: Warm, Dry, No Rash Head: Atraumatic, Normacephalic Eye(s): bilateral: PERRL Chest: Symmetrical Cardiovascular: Rhythm Regular, No Murmur Respiratory: Normal Breath Sounds, No Accessory Muscle Use Gastrointestinal/Abdominal: Other (+COLOSTOMY NO BLEEDING, OUTPUT NO FOCAL TEND. ) Neurological/Psych: Other (NO SI ACTIVE PSYCHOSIS; NARC INTOX) ED Course And Treatment - Laboratory Results Result Diagrams: 10/25/16 15:52 10/25/16 15:52 ECG: Interpreted By Pa, Viewed By Pa ECG Rhythm: Sinus Rhythm ECG Interpretation: No Acute Changes Rate From EC O2 Sat by Pulse Oximetry: 95 Pulse Ox Interpretation: Normal - Radiology CXR: Interpreted by Me CXR Interpretation: Yes: No Acute Disease Progress - Re-Evaluation Re-evaluation Note: 10/25/16 17:51 AWAKE DOESNT WISH ADMISSION OR WAIT FOR CT RESULTS. UNDERSTANDS RISKS BENEFITS OF LEAVING INCLUDING DISBAILITY DETERIORATION AND . CLEAR SPEECH AND THOUGHT, NO S/S ACUTE INTOX. AMA - Data Reviewed Data Reviewed: Lab, Diagnostic imaging, EKG, Old records Disposition Counseled Patient/Family Regarding: Studies Performed, Diagnosis - Disposition Disposition: AGAINST MEDICAL ADVICE Disposition Time: 17:51 Condition: STABLE Instructions: Against Medical Advice (ED), Acute Abdominal Pain (ED), Opioid Overdose (ED) - Clinical Impression Clinical Impression: Opiate abuse, episodic, Abdominal colic, Colostomy dysfunction - Scribe Statement The provider has reviewed the documentation as recorded by the Scribe (Glo Agarwal) All medical record entries made by the Scribe were at my direction and personally dictated by me. I have reviewed the chart and agree that the record accurately reflects my personal performance of the history, physical exam, medical decision making, and the department course for this patient. I have also personally directed, reviewed, and agree with the discharge instructions and disposition.
[2016-10-25] MEDS ORDERED: Naloxone 0.4 mg/ml Inj (Adult) IV ONE (15:21)
--- NOTE | 2016-10-25 15:36 | RAD ---
PROCEDURE: CHEST RADIOGRAPH, 1 VIEW HISTORY: OVERDOSE COMPARISON: 10/23/2016. FINDINGS: LUNGS: The lungs are well inflated and clear. PLEURA: No pneumothorax or pleural fluid seen. CARDIOVASCULAR: Normal. OSSEOUS STRUCTURES: No significant abnormalities. VISUALIZED UPPER ABDOMEN: Normal. OTHER FINDINGS: None. IMPRESSION: No active pulmonary disease.
[2016-10-25] MEDS ORDERED: Naloxone 0.4 mg/ml Inj (Adult) ONE (15:39)
[2016-10-25] MEDS ORDERED: Sodium Chloride 0.9% 1,000 ML ONE (15:39)
[2016-10-25 15:57] LABS: BASO # 0.1 K/uL (0.0-0.2); EOS # 0.2 K/uL (0.0-0.7); EOS % 3.3 % (0.0-4.0); HEMOGLOBIN 13.5 g/dL (12.0-18.0); LYMPH # 2.1 K/uL (1.0-4.3); LYMPH % 33.9 % (20.0-40.0); MEAN CORPUSCULAR HEMOGLOBIN 30.3 pg (27.0-31.0); MEAN CORPUSCULAR HGB CONC 33.3 g/dL (33.0-37.0); MONO # 0.6 K/uL (0.0-0.8); MONO % 10.4 % (0.0-10.0); NEUT # 3.1 K/uL (1.8-7.0); NEUT % 51.4 % (50.0-75.0); RBC 4.46 Mil/uL (4.40-5.90); RED CELL DISTRIBUTION WIDTH 14.1 % (11.5-14.5); WHITE BLOOD COUNT 6.1 K/uL (4.8-10.8)
[2016-10-25 16:04] LABS: ALBUMIN 4.1 g/dL (3.5-5.0)
[2016-10-25 16:07] LABS: ALB/GLOB RATIO 1.1 (1.0-2.1); AST/SGOT 213 U/L (17-59); GFR AFRICAN-AMERICAN > 60; GFR NON-AFRICAN AMERICAN > 60
[2016-10-25 16:08] LABS: ALT/SGPT 184 U/L (21-72); BLOOD UREA NITROGEN 17 mg/dL (9-20); CALCIUM 8.8 mg/dl (8.6-10.4); LIPASE 27 U/L (23-300)
[2016-10-25] MEDS ORDERED: Iodixanol 320 MG/ML 100 ML BOTTLE IV ONE (17:07)
[2016-10-25 17:52] VITALS: BP 116/76; PULSE 88; RESP 17; O2SAT 95
--- NOTE | 2016-10-25 18:18 | CT ---
EXAM: CT Abdomen and Pelvis With Intravenous Contrast CLINICAL HISTORY: 56 years old, male; Pain and condition or disease; Other: No colostomy output; Abdominal pain; Generalized; Additional info: Abd pain no colostomy output TECHNIQUE: Axial computed tomography images of the abdomen and pelvis with intravenous contrast. This CT exam was performed using one or more of the following dose reduction techniques: automated exposure control, adjustment of the mA and/or kV according to patient size, and/or use of iterative reconstruction technique. Coronal and sagittal reformatted images were created and reviewed. CONTRAST: 100 mL of [id number] administered intravenously. EXAM DATE/TIME: 10/25/2016 4:12 PM COMPARISON: CT - ABD PELVIS IV CONTRAST ONLY 09/20/2016 6:54:31 PM FINDINGS: Lower thorax: Heart size is normal. There is a small hiatal hernia. Lung bases are hyperinflated. There is minimal dependent atelectasis. ABDOMEN: Liver: There is fatty infiltration of the liver. Gallbladder and bile ducts: Gallbladder is distended. Common bile duct is dilated to 11 mm in diameter Pancreas: Pancreas is mildly atrophic with mild prominence of the pancreatic duct in the body and tail of the pancreas. Distal pancreatic duct is dilated to 6 mm in diameter.. Spleen: unremarkable Adrenals: unremarkable Kidneys and ureters: There is a left renal cyst. There are additional low attenuation renal lesions arise. Kidneys are otherwise unremarkable. There is mild ureterectasis. Stomach and bowel: Stomach is incompletely distended. Rotation is normal. There are mildly distended small bowel loops in the left upper quadrant. There is scattered air-fluid levels small bowel in the left flank. There is no obstruction. Terminal ileum is unremarkable. Appendix is unremarkable.Colon is incompletely distended which limits evaluation. There is a distal descending colon colostomy in the left lower quadrant. There is a mucus fistula. Residual sigmoid and rectum are collapsed. There is minimal stool in the rectum. Appendix: See stomach and bowel PELVIS: Bladder: Bladder is distended. No the bladder isn't the level of the umbilicus. Reproductive: Seminal vesicles and prostate are unremarkable. ABDOMEN and PELVIS: Intraperitoneal space: There is no free air or free fluid. Bones/joints: Bony structures are osteopenic.There are degenerative changes in the osseus structures. There is a left hip prosthesis. There is sclerosis at the sacroiliac joints right greater than left. The compression fracture at L5. There are healing left ninth and 10th rib fractures. Soft tissues: unremarkable Vasculature: There are vascular calcifications. Lymph nodes: There is shotty adenopathy. IMPRESSION: Mildly distended small bowel loops in the left flank more suggestive of ileus than obstruction, no CT findings of small or large bowel obstruction, distal descending colon colostomy and mucous fistula in the left lower quadrant; dilated common bile duct and distal pancreatic duct with mild pancreatic atrophy suggests distal obstructing lesion the pancreatic head or ampulla, MRI and MRCP suggested as clinically indicated; bilateral ureterectasis most likely on the basis of bladder volume; fatty liver Additional findings as described above.
--- NOTE | 2016-10-26 14:01 | CARD ---
APPROVED REPORT EKG Measurement Heart [id number] <Conclusion> Normal sinus rhythm Normal ECG
== END 2016-10-25 18:03 | disposition left against medical advice (07) ==
LOC: C.ER 14:36
DX: F11.10 Opioid abuse, uncomplicated (principal); R10.84 Generalized abdominal pain; K94.03 Colostomy malfunction; Y84.8 Other medical procedures as the cause of abnormal reaction of the patient, or of later complication, without mention of misadventure at the time of the procedure
CPT/HCPCS: 71010; 74177; 80053; 80329; 83690; 85025; 93005; 96361; 96374; 99285; J2310; J7040; Q9967

== ENCOUNTER 2016-10-27 20:01 | Observation (INO) | payer MEDICAID ==
[2016-10-27 20:02] VITALS: BMI 27.3
--- NOTE | 2016-10-27 20:29 | C.PDOC ---
History Of Present Illness Patient presents to the ER inebriated and complaining of abdominal pain. Patient admits to drinking tonight; it is noted that he is incontinent to urine. Denies injury, nausea, or vomiting. Time Seen by Provider: 10/27/16 20:29 Chief Complaint (Nursing): Substance Abuse History Per: Patient History/Exam Limitations: no limitations Onset/Duration Of Symptoms: Hrs Current Symptoms Are (Timing): Still Present Suicide/Self Injury Attempted (Context): None Modifying Factor(s): Alcohol Severity: Moderate Pain Scale Rating Of: 4 Associated Symptoms: denies: Depression, Suicidal Thoughts, Suicidal Plan Recent travel outside of the [place]: No Past Medical History Reviewed: Historical Data, Nursing Documentation, Vital Signs Vital Signs: Last Vital Signs Temp 98.2 F 10/28/16 01:37 Pulse 90 10/28/16 01:37 Resp 12 10/28/16 01:37 BP 130/68 10/28/16 01:37 Pulse Ox 97 10/28/16 01:37 - Medical History PMH: Anxiety, Arthritis (L HIP; BACK), Bipolar Disorder, Depression, Fractures ( left elbow), HTN, Schizophrenia, Chronic Pain (Hip) - [facility] Procedures APPLICATION OF SPLINT (10/17/14) BYPASS SIGMOID COLON TO CUTANEOUS, OPEN APPROACH (06/20/16) CHANGE PACKING MATERIAL ON RIGHT UPPER LEG (06/20/16) DESTRUCTION OF BACK SKIN, EXTERNAL APPROACH (06/20/16) DESTRUCTION OF BACK SKIN, MULTIPLE, EXTERNAL APPROACH (06/20/16) DETOXIFICATION SERVICES FOR SUBSTANCE ABUSE TREATMENT (06/20/16) EXCISION OF BACK SKIN, EXTERNAL APPROACH (06/20/16) EXCISION OF BACK SKIN, EXTERNAL APPROACH, DIAGNOSTIC (06/20/16) EXCISION OF BUTTOCK SKIN, EXTERNAL APPROACH (06/20/16) EXCISION OF LEFT UPPER LEG SKIN, EXTERNAL APPROACH (06/20/16) EXCISION OF RIGHT UPPER LEG SKIN, EXTERNAL APPROACH (06/20/16) GROUP SOCIALLY RESPONSIBLE INVESTMENT ADVISER FOR SUBSTANCE ABUSE TREATMENT, PSYCHOEDUCATION (03/31/16) INSERTION OF ENDOTRACHEAL AIRWAY INTO TRACHEA, VIA OPENING (09/26/16) INSERTION OF FEEDING DEVICE INTO STOMACH, PERC APPROACH (09/26/16) INSERTION OF INFUSION DEV INTO SUP VENA CAVA, PERC APPROACH (06/20/16) REPAIR BUTTOCK SKIN, EXTERNAL APPROACH (06/20/16) REPAIR LOWER VEIN, OPEN APPROACH (06/20/16) REPLACE BUTTOCK SKIN W AUTOL SUB, PART THICK, HAND TILE MAKER (06/20/16) REPLACE SKIN W PORC LIVR SUB, HAND TILE MAKER, NEW TECH 2 (06/20/16) RESPIRATORY VENTILATION, 24-96 CONSECUTIVE HOURS (01/13/16) RESPIRATORY VENTILATION, LESS THAN 24 CONSECUTIVE HOURS (09/26/16) TRANSFER BUTTOCK SKIN, EXTERNAL APPROACH (06/20/16) Family History: States: Unknown Family Hx - Social History Hx Tobacco Use: Yes Hx Alcohol Use: Yes Hx Substance Use: Yes - Immunization History Hx Tetanus Toxoid Vaccination: No Hx Influenza Vaccination: No Hx Pneumococcal Vaccination: No Review Of Systems Gastrointestinal: Positive for: Abdominal Pain. Negative for: Nausea, Vomiting Genitourinary: Positive for: Incontinence Physical Exam - Physical Exam Appears: Non-toxic, Other (ETOH on breath) Skin: Warm, Dry Oral Mucosa: Moist Chest: Symmetrical, No Tenderness Cardiovascular: Rhythm Regular, No Murmur Respiratory: No Rales, No Rhonchi, No Wheezing Gastrointestinal/Abdominal: Soft, No Tenderness, Other (Left sided colostomy bag in place with some drainage. Nontender around stoma.) Neurological/Psych: Oriented x3 ED Course And Treatment - Laboratory Results Result Diagrams: 10/27/16 20:41 10/27/16 20:41 O2 Sat by Pulse Oximetry: 97 (Room air) Pulse Ox Interpretation: Normal Progress Note: Blood work ordered. Zofran, pepcid, and IV fluids administered. Medical Decision Making Medical Decision Making: Upon provider reevaluation patient is feeling better, is medically stable, and requires no further treatment in the ED at this time. Patient will be discharged home . Counseling was provided and all questions were answered regarding diagnosis and need for follow up with dr pool. There is agreement to discharge plan. Return if symptoms persist or worsen. ED OBSERVATION Discharge: Yes Date of observation admission: 10/27/16 Time of observation admission: 22:16 - Observation admission statement Patient is being placed in observation because:: acute alcohol intoxication - Goals of Observation Goals of observation are:: sobriety - Progress Note Progress Note: 10/27/16 22:16 vitals stable 10/28/16 00:41 no complaints 10/28/16 03:39 vitals stable, wants to leave Disposition Counseled Patient/Family Regarding: Studies Performed, Diagnosis, Need For Followup - Disposition Disposition: HOME/ ROUTINE Disposition Time: 20:29 Condition: FAIR - Clinical Impression Clinical Impression: Alcohol abuse, Elevated LFTs, Alcohol intoxication - Scribe Statement The provider has reviewed the documentation as recorded by the Dianibbilly Escobar All medical record entries made by the Dianibbilly were at my direction and personally dictated by me. I have reviewed the chart and agree that the record accurately reflects my personal performance of the history, physical exam, medical decision making, and the department course for this patient. I have also personally directed, reviewed, and agree with the discharge instructions and disposition.
[2016-10-27] MEDS ORDERED: Sodium Chloride 0.9% 1,000 ML IV ONE (20:35)
[2016-10-27 20:45] LABS: BASO % 0.8 % (0.0-2.0); EOS # 0.3 K/uL (0.0-0.7); EOS % 4.9 % (0.0-4.0); HEMATOCRIT 44.9 % (35.0-51.0); LYMPH # 3.4 K/uL (1.0-4.3); LYMPH % 52.6 % (20.0-40.0); MEAN CELL VOLUME 90.2 fL (80.0-94.0); MEAN CORPUSCULAR HEMOGLOBIN 30.2 pg (27.0-31.0); MEAN CORPUSCULAR HGB CONC 33.5 g/dL (33.0-37.0); MEAN PLATELET VOLUME 7.1 fL (7.2-11.7); MONO # 0.5 K/uL (0.0-0.8); MONO % 7.1 % (0.0-10.0); RED CELL DISTRIBUTION WIDTH 14.1 % (11.5-14.5); WHITE BLOOD COUNT 6.4 K/uL (4.8-10.8)
[2016-10-27 20:54] LABS: RBC URINE 1 /hpf (0-3); URINE BACTERIA RARE (<OCC); URINE BILIRUBIN NEGATIVE (NEGATIVE); URINE BLOOD NEGATIVE (NEGATIVE); URINE COLOR Yellow (YELLOW); URINE GLUCOSE (UA) NORMAL (Normal); URINE KETONE NEGATIVE (NEGATIVE); URINE LEUKOCYTE ESTERASE NEG Leu/uL (Negative); URINE PROTEIN NEGATIVE (NEGATIVE); URINE UROBILINOGEN NORMAL mg/dL (0.2-1.0); WBC URINE < 1 /hpf (0-5)
[2016-10-27] MEDS ORDERED: Sodium Chloride 0.9% 1,000 ML ONE (20:58)
[2016-10-27 21:08] LABS: CHLORIDE 109 mmol/L (98-107); POTASSIUM 3.3 mmol/L (3.6-5.2); SODIUM 149 mmol/L (132-148)
[2016-10-27 21:10] LABS: BILIRUBIN,TOTAL 0.6 mg/dL (0.2-1.3); GFR AFRICAN-AMERICAN > 60
[2016-10-27 21:11] LABS: ALB/GLOB RATIO 1.2 (1.0-2.1); ALKALINE PHOSPHATASE 117 U/L (38-126); ALT/SGPT 239 U/L (21-72); AST/SGOT 261 U/L (17-59); BLOOD UREA NITROGEN 11 mg/dL (9-20); CALCIUM 9.2 mg/dl (8.6-10.4); CARBON DIOXIDE 19 mmol/L (22-30); GLUCOSE,RANDOM 88 mg/dL (75-110); TOTAL PROTEIN 8.2 g/dL (6.3-8.3)
[2016-10-27 21:12] LABS: ALCOHOL SERUM 245 mg/dl (0-10)
[2016-10-28 00:43] VITALS: O2SAT 97
[2016-10-28] MEDS ORDERED: Benzoin Compound Tincture (60 ml) ONE (01:24)
[2016-10-28 01:38] VITALS: BP 130/68; PULSE 90; RESP 12; TEMP 98.2
== END 2016-10-28 03:41 | disposition home or self-care (01) ==
LOC: C.ER 20:01 → SUPCPDRO 20:01 → C.9OBSV 22:15
PROVIDERS: ADMIT Emergency Medicine; ATTEND Emergency Medicine
DX: F10.120 Alcohol abuse with intoxication, uncomplicated (principal); I10 Essential (primary) hypertension; Z87.891 Personal history of nicotine dependence; F31.9 Bipolar disorder, unspecified; Y90.8 Blood alcohol level of 240 mg/100 ml or more

== ENCOUNTER 2016-11-02 09:20 | Inpatient (IN) | payer MEDICAID ==
[2016-11-02] MEDS ORDERED: ceFAZolin IV 1 gm in Dextrose 0 GM/0 ML BAG IVPB ONE (09:39)
[2016-11-02] MEDS ORDERED: Lidocaine 1% Inj (20ml) ONE (09:40)
[2016-11-02] MEDS ORDERED: metroNIDAZOLE IV 500 mg/100 ml 0 MG/0 ML BAG ONE (09:40)
[2016-11-02] MEDS ORDERED: ceFAZolin IV 2 gm in Dextrose 0 GM/0 ML BAG IVPB ONE ×2 (09:40→10:54)
[2016-11-02] MEDS ORDERED: Bupivacaine HCl 0.25% PF (10 ml) Inj ONE (09:40)
[2016-11-02] MEDS ORDERED: cefTRIAXone IV 1 gm in Dextros 50 ML IVPB ONE (11:13)
[2016-11-02] MEDS ORDERED: Midazolam 2 MG/2 ML VIAL ONE (11:16)
[2016-11-02] MEDS ORDERED: Propofol 10 mg/ml Inj (20 ML) ONE (11:16)
[2016-11-02] MEDS ORDERED: Lactated Ringer's 1,000 ML IV ONE ×2 (11:16→11:35)
[2016-11-02] MEDS ORDERED: Rocuronium 10 mg/ml (5 ml) ONE (11:19)
[2016-11-02] MEDS ORDERED: Succinylcholine Chloride 20 mg/ml Syr (5 ml) IV ONE (11:19)
[2016-11-02] MEDS ORDERED: Morphine 4 MG/ML VIAL ONE (12:26)
[2016-11-02] MEDS ORDERED: Neostigmine Methylsulfate 3mg/3ml Syringe IV ONE (12:35)
[2016-11-02] MEDS ORDERED: Bacitracin Ointment 30 GM TUBE ONE (12:38)
[2016-11-02] MEDS: HYDROmorphone 0.5 mg/0.5 ml ISec ONE ×2 (12:56→15:53)
[2016-11-02] MEDS: HYDROmorphone 0.5 mg/0.5 ml ISec IVP PRN ×6 (13:03→14:28)
[2016-11-02] MEDS ORDERED: HYDROmorphone 1 mg/ml ISec IVP PRN (13:05)
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
[2016-11-02] MEDS: Potassium Ch 20mEq in D5-1/2NS 1,000 ML IV SCH ×3 (17:58→22:04)
[2016-11-02] MEDS: Enoxaparin 30 mg Syringe SC SCH (21:45)
[2016-11-03] MEDS: Potassium Ch 20mEq in D5-1/2NS 1,000 ML IV SCH ×3 (01:45→12:37)
[2016-11-03] MEDS: Sodium Chloride 0.9% 1,000 ML IV SCH (05:05)
--- NOTE | 2016-11-03 07:16 | CP.PCM.PN ---
Subjective - Date & Time of Evaluation Date of Evaluation: 11/03/16 Time of Evaluation: 07:30 - Subjective Subjective: PGY1- Medicine Note- Dr. Lemon's Service Patient was seen today at bedside in no acute distress POD#1 colostomy reversal. Reports cramping pain at surgical site 02/02 without radiation worsened by movement and palpation. Denies eructation or flatulence, n/v, BM. No urinary complaints, urinates into urinal without assistance. Chronic reduced active range of motion of right arm in flexion and abduction, full ROM on passive. Denies chest pain, palpitations, shortness of breath, dyspnea, night sweats. Objective - Vital Signs/Intake and Output Vital Signs (last 24 hours): Temp Pulse Resp BP Pulse Ox 99.5 F 91 H 20 106/68 97 11/03/16 04:00 11/02/16 23:50 11/02/16 23:50 11/02/16 23:50 11/02/16 23:50 Intake and Output: 11/03/16 11/03/16 06:59 18:59 Intake Total 1000 Output Total 325 Balance 675 - Medications Medications: Current Medications Diltiazem HCl (Cardizem Cd) 240 mg PO DAILY WONG Enoxaparin Sodium (Lovenox) 30 mg SC 1000,2200 WONG Last Admin: 11/02/16 21:45 Dose: 30 mg Folic Acid (Folic Acid) 1 mg PO DAILY WONG Hydromorphone HCl (Dilaudid) 1 mg IVP Q4H PRN PRN Reason: breakthrough pain Hydromorphone/Sodium Chloride (Dilaudid Car Oiler) 4.8 mg IV Q4H PRN; Protocol PRN Reason: Pain, moderate (4-7) Last Admin: 11/03/16 00:53 Dose: 4.8 mg Potassium Chloride/Dextrose/Sod Cl (Potassium Chl 20 Meq In D5-1/2ns) 1,000 mls @ 125 mls/hr IV .Q8H WONG Last Admin: 11/03/16 01:45 Dose: 125 mls/hr Sodium Chloride (Sodium Chloride 0.9%) 1,000 mls @ 75 mls/hr IV .[id number] [facility] Ketorolac Tromethamine (Toradol) 30 mg IVP Q6 PRN PRN Reason: pain Stop: 11/07/16 12:57 Last Admin: 11/02/16 14:37 Dose: 30 mg Lorazepam (Ativan) 1 mg PO Q4 WONG PRN Reason: Taper Stop: 11/07/16 15:44 Last Admin: 11/03/16 04:36 Dose: 1 mg Lorazepam (Ativan) 1 mg IVP Q4H PRN PRN Reason: Seizure activity Multivitamins (Hexavitamin) 1 tab PO DAILY WONG Ondansetron HCl (Zofran Inj) 4 mg IVP Q6 PRN PRN Reason: Nausea/Vomiting Pantoprazole Sodium (Protonix Ec Tab) 40 mg PO DAILY WONG Thiamine HCl (Vitamin B1 Tab) 100 mg PO DAILY WONG - Constitutional Appears: Well, Non-toxic, No Acute Distress - Head Exam Head Exam: ATRAUMATIC, NORMAL INSPECTION, NORMOCEPHALIC - Eye Exam Eye Exam: EOMI, Normal appearance, PERRL - ENT Exam ENT Exam: Mucous Membranes Moist, Normal Exam - Neck Exam Neck Exam: Full ROM, Normal Inspection. absent: Lymphadenopathy - Respiratory Exam Respiratory Exam: Clear to Ausculation Bilateral, NORMAL BREATHING PATTERN. absent: Rales, Rhonchi, Wheezes, Respiratory Distress - Cardiovascular Exam Cardiovascular Exam: REGULAR RHYTHM, RRR. absent: Gallop, Rubs, Murmur - GI/Abdominal Exam GI & Abdominal Exam: Distended, Guarding, Normal Bowel Sounds Additional comments: dressings clean, dry, intact - Extremities Exam Extremities Exam: Full ROM. absent: Pedal Edema - Back Exam Back Exam: NORMAL INSPECTION. absent: rash noted - Neurological Exam Neurological Exam: Alert, Awake, Oriented x3 - Psychiatric Exam Psychiatric exam: Normal Affect, Normal Mood - Skin Skin Exam: Intact, Normal Color, Warm Additional comments: surgical sites covered in clean, dry, intact dressings Assessment and Plan - Assessment and Plan (Free Text) Assessment: S/P Colostomy Reversal POD #1 NPO - advance diet as per Dr. Annmarie Palomares NEONATOLOGIST 4.8mg IV Q4H PRN - ordered by Dr. Annmarie Harringtonid 1mg IVP Q4H PRN breakthrough pain - ordered by Dr. Anguiano Toradol 30mg IVP Q6 PRN - ordered by Dr. Anguiano Zofran 4mg IVP Q6 PRN NS @75cc/hr HTN Continue home med: Cardizem 240mg PO daily Monitor BP Alcohol Abuse Ativan taper Ativan 1mg IVP Q4H prn seizure activity MVI Thiamine 100mg PO daily Folic Acid 1mg PO daily Seizure and Aspiration Precautions Alcohol withdrawal assessment Q1h Transaminitis Likely secondary to alcohol abuse Abdominal US performed 11/03, f/u. Prophylaxis Protonix 40mg PO daily Lovenox 30mg SC BID SCDs Plan: S/P Colostomy Reversal POD #0 Surgery consult - Dr. Anguiano - help appreciated Dilaudid NEONATOLOGIST 4.8mg IV Q4H PRN - ordered by Dr. Anguiano Dilaudid 1mg IVP Q4H PRN breakthrough pain - ordered by Dr. Anguiano Toradol 30mg IVP Q6 PRN - ordered by Dr. Anguiano Zofran 4mg IVP Q6 PRN NPO - diet managed by Dr. Anguiano NS @75cc/hr HTN Continue home med: Cardizem 240mg PO daily Monitor BP Alcohol Abuse Ativan taper Ativan 1mg IVP Q4H prn seizure activity MVI Thiamine 100mg PO daily Folic Acid 1mg PO daily Seizure and Aspiration Precautions Alcohol withdrawal assessment Q1 Transaminitis Likely secondary to alcohol abuse F/U abdominal US ordered for tomorrow Prophylaxis Protonix 40mg PO daily Lovenox 30mg SC BID SCDs
[2016-11-03 07:43] LABS: BASO % 0.3 % (0.0-2.0); EOS # 0.1 K/uL (0.0-0.7); EOS % 0.9 % (0.0-4.0); LYMPH # 1.7 K/uL (1.0-4.3); LYMPH % 21.1 % (20.0-40.0); MEAN CELL VOLUME 90.5 fL (80.0-94.0); MEAN CORPUSCULAR HEMOGLOBIN 30.7 pg (27.0-31.0); MEAN CORPUSCULAR HGB CONC 33.9 g/dL (33.0-37.0); MEAN PLATELET VOLUME 7.3 fL (7.2-11.7); MONO # 0.7 K/uL (0.0-0.8); MONO % 8.6 % (0.0-10.0); NEUT # 5.7 K/uL (1.8-7.0); NEUT % 69.1 % (50.0-75.0); RBC 4.08 Mil/uL (4.40-5.90); RED CELL DISTRIBUTION WIDTH 13.9 % (11.5-14.5); WHITE BLOOD COUNT 8.2 K/uL (4.8-10.8)
[2016-11-03 07:50] LABS: ALBUMIN 3.2 g/dL (3.5-5.0)
[2016-11-03 07:53] LABS: ALB/GLOB RATIO 1.1 (1.0-2.1); AST/SGOT 84 U/L (17-59); GFR AFRICAN-AMERICAN > 60; GFR NON-AFRICAN AMERICAN > 60
[2016-11-03 07:54] LABS: ALT/SGPT 127 U/L (21-72); BLOOD UREA NITROGEN 9 mg/dL (9-20); CALCIUM 8.3 mg/dl (8.6-10.4)
[2016-11-03 07:55] LABS: HEMOGLOBIN 12.5 g/dL (12.0-18.0)
[2016-11-03] MEDS ORDERED: Potassium Chloride 20 mEq ER Tab PO ONE (09:45)
[2016-11-03] MEDS: Enoxaparin 30 mg Syringe SC SCH ×2 (09:56→22:02)
[2016-11-03] MEDS: Pantoprazole 40 mg EC Tab PO SCH (09:56)
[2016-11-03] MEDS: diltiaZEM 240 mg/24 Hours CD Cap PO SCH (09:56)
[2016-11-03] MEDS: Multiple Vitamins Tab PO SCH (09:56)
--- NOTE | 2016-11-03 10:41 | US ---
HISTORY: transaminitis COMPARISON: 10/25/2016 T abdomen and pelvis with IV TECHNIQUE: Sonographic evaluation of the abdomen. FINDINGS: LIVER: Measures 16.3 cm. Increased echogenicity of the liver parenchyma. No mass. No intrahepatic bile duct dilatation. GALLBLADDER: Unremarkable. No gallstones. COMMON BILE DUCT: Measures 12 mm. No stones. No dilatation. PANCREAS: Limited evaluation of the pancreas appear the pancreatic head/body duct appears of borderline increased at 2.8 mm (2 mm being upper limits of normal. The pancreatic body/ tear junction is obscured by bowel gas RIGHT KIDNEY: Measures 11.3 x 5.9 x 6.1cm. Normal echogenicity. No calculus, mass, or hydronephrosis. LEFT KIDNEY: Measures 13.0 x 7.0 x 6.3cm. Normal echogenicity. No calculus, mass, or hydronephrosis. SPLEEN: Normal in size and contour. No mass. AORTA: No aneurysmal dilatation. IVC: Unremarkable. OTHER FINDINGS: None. IMPRESSION: Dilated common bile duct and minimally prominent pancreatic head. A ampullary/ ashely ampullary a lesion -benign and malignant needed be considered. No gallstones. The CT renal cysts are not depicted on this exam
[2016-11-04] MEDS: Sodium Chloride 0.9% 1,000 ML IV SCH ×2 (02:02→08:45)
--- NOTE | 2016-11-04 07:05 | CP.PCM.PN ---
<Ying Rose - Last Filed: 11/04/16 18:06> Subjective - Date & Time of Evaluation Date of Evaluation: 11/04/16 Time of Evaluation: 07:00 - Subjective Subjective: PGY1- Medicine Note- Dr. Lemon's Service Patient was seen today at bedside in no acute distress POD#2 colostomy reversal. Reports feeling better than yesterday. Improvement of cramping pain at surgical site 7-8/10 without radiation worsened by movement and palpation. With ambulatory assistance, he was able to do a full lap around the hallway without stopping to rest. Denies eructation or flatulence, n/v, BM. No urinary complaints, urinates into urinal without assistance. Actively using incentive spirometer. Denies chest pain, palpitations, shortness of breath, dyspnea, night sweats. Objective - Vital Signs/Intake and Output Vital Signs (last 24 hours): Temp Pulse Resp BP Pulse Ox 98.9 F 76 20 118/72 96 11/04/16 04:23 11/04/16 04:23 11/04/16 04:23 11/04/16 04:23 11/04/16 04:23 Intake and Output: 11/04/16 11/04/16 06:59 18:59 Intake Total 600 Output Total 1025 Balance -425 - Medications Medications: Current Medications Diltiazem HCl (Cardizem Cd) 240 mg PO DAILY [facility] Last Admin: 11/03/16 09:56 Dose: 240 mg Enoxaparin Sodium (Lovenox) 30 mg SC 1000,2200 [facility] Last Admin: 11/03/16 22:02 Dose: 30 mg Folic Acid (Folic Acid) 1 mg PO DAILY [facility] Last Admin: 11/03/16 09:56 Dose: 1 mg Hydromorphone HCl (Dilaudid) 1 mg IVP Q4H PRN PRN Reason: breakthrough pain Hydromorphone/Sodium Chloride (Dilaudid Manager [employer]) 4.8 mg IV Q4H PRN; Protocol PRN Reason: Pain, moderate (4-7) Last Admin: 11/03/16 23:06 Dose: 4.8 mg Potassium Chloride/Dextrose/Sod Cl (Potassium Chl 20 Meq In D5-1/2ns) 1,000 mls @ 125 mls/hr IV .Q8H [facility] Last Admin: 11/03/16 12:37 Dose: Not Given Sodium Chloride (Sodium Chloride 0.9%) 1,000 mls @ 75 mls/hr IV .[id number] [facility] Last Admin: 11/04/16 02:02 Dose: 75 mls/hr Ketorolac Tromethamine (Toradol) 30 mg IVP Q6 PRN PRN Reason: pain Stop: 11/07/16 12:57 Last Admin: 11/02/16 14:37 Dose: 30 mg Lorazepam (Ativan) 1 mg PO Q4 WONG PRN Reason: Taper Stop: 11/07/16 15:44 Last Admin: 11/04/16 04:40 Dose: 1 mg Lorazepam (Ativan) 1 mg IVP Q4H PRN PRN Reason: Seizure activity Multivitamins (Hexavitamin) 1 tab PO DAILY [facility] Last Admin: 11/03/16 09:56 Dose: 1 tab Ondansetron HCl (Zofran Inj) 4 mg IVP Q6 PRN PRN Reason: Nausea/Vomiting Pantoprazole Sodium (Protonix Ec Tab) 40 mg PO DAILY [facility] Last Admin: 11/03/16 09:56 Dose: 40 mg Thiamine HCl (Vitamin B1 Tab) 100 mg PO DAILY [facility] Last Admin: 11/03/16 09:56 Dose: 100 mg - Labs Labs: 11/03/16 07:17 11/03/16 07:17 - Constitutional Appears: Well, Non-toxic, No Acute Distress - Eye Exam Eye Exam: EOMI, Normal appearance, PERRL - Neck Exam Neck Exam: Full ROM, Normal Inspection. absent: Lymphadenopathy - Respiratory Exam Respiratory Exam: Clear to Ausculation Bilateral, NORMAL BREATHING PATTERN. absent: Rales, Rhonchi, Wheezes, Respiratory Distress, Stridor - Cardiovascular Exam Cardiovascular Exam: REGULAR RHYTHM, RRR, +S1, +S2. absent: Gallop, Rubs, Murmur - GI/Abdominal Exam GI & Abdominal Exam: Distended, Tenderness, Normal Bowel Sounds Additional comments: tender especially around incisions - Extremities Exam Extremities Exam: Normal Inspection. absent: Pedal Edema - Back Exam Back Exam: NORMAL INSPECTION. absent: rash noted - Neurological Exam Neurological Exam: Alert, Awake, Oriented x3 - Psychiatric Exam Psychiatric exam: Normal Affect, Normal Mood - Skin Skin Exam: Intact, Normal Color, Warm Assessment and Plan - Assessment and Plan (Free Text) Assessment: 1) s/p Colostomy reversal POD#2 Surgery on case, Dr. Anguiano, help appreciated Advance to Clear liquids from NPO today per Dr. 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 Anguiano Dilaudid 1mg IVP Q4H prn breakthrough pain - ordered by Dr. Anguiano Toradol 30mg IVP Q6H prn - ordered by Dr. Anguiano KCl 20mEq in D5-1/2 NS. 1000mls @ 125 cc/hr IV q8h - ordered by Dr. Anguiano Zofran 4mg po daily NS 1000mls @75cc/hr Colace 100mg PO BID for constipation Encourage incentive spirometer and ambulation 2) Primary hypertension Controlled via home meds, continue Cardizem 240mg po daily Monitor BP 3) EtOH abuse Ativan taper Ativan 1mg IVP q4h prn seizure activity multivitamin Thiamine 100mg po daily Folic acid 1mg po daily Seizure and Aspiration precautions Alcohol withdrawal assessment q1h 4) Transaminitis Likely secondary to alcohol abuse Abdominal US (11/03)- Impression: 1. Dilated common bile duct and minimally prominent pancreatic head. An ampullary/ashely ampullary a lesion-benign and malignant needed be considered. 2. No gallstones 3. The CT renal cysts are not depicted on this exam AST 11/04 65(H), down from 84 yesterday ALT 11/04 99(H), down from 127 yesterday 5) Prophylactic Measures Protonix 40mg po daily Lovenox 30mg sc BID SCDs <Fidel Lemon Jr. - Last Filed: 11/07/16 10:24> Objective - Vital Signs/Intake and Output Vital Signs (last 24 hours): Temp Pulse Resp BP Pulse Ox 99.2 F 76 18 123/75 99 11/04/16 15:55 11/04/16 15:55 11/04/16 15:55 11/04/16 15:55 11/04/16 15:55 - Labs Labs: 11/04/16 07:03 11/04/16 07:03 Attending/Attestation - Attestation I have personally seen and examined this patient.: Yes I have fully participated in the care of the patient.: Yes I have reviewed all pertinent clinical information, including history, physical exam and plan: Yes Notes (Text): 11/07/16 10:24 Agree with resident note and findings
[2016-11-04 07:27] LABS: ALBUMIN 3.2 g/dL (3.5-5.0)
[2016-11-04 07:30] LABS: AST/SGOT 65 U/L (17-59); BLOOD UREA NITROGEN 7 mg/dL (9-20); GFR AFRICAN-AMERICAN > 60; GFR NON-AFRICAN AMERICAN > 60
[2016-11-04 07:31] LABS: ALT/SGPT 99 U/L (21-72); CALCIUM 8.5 mg/dl (8.6-10.4); MAGNESIUM 1.2 mg/dL (1.6-2.3)
[2016-11-04 07:33] LABS: BASO % 0.4 % (0.0-2.0); EOS # 0.1 K/uL (0.0-0.7); EOS % 1.4 % (0.0-4.0); HEMOGLOBIN 11.9 g/dL (12.0-18.0); LYMPH # 2.2 K/uL (1.0-4.3); LYMPH % 24.6 % (20.0-40.0); MEAN CELL VOLUME 91.7 fL (80.0-94.0); MEAN CORPUSCULAR HEMOGLOBIN 30.5 pg (27.0-31.0); MEAN CORPUSCULAR HGB CONC 33.2 g/dL (33.0-37.0); MEAN PLATELET VOLUME 7.3 fL (7.2-11.7); MONO % 11.8 % (0.0-10.0); NEUT # 5.5 K/uL (1.8-7.0); NEUT % 61.8 % (50.0-75.0); RBC 3.91 Mil/uL (4.40-5.90); RED CELL DISTRIBUTION WIDTH 13.9 % (11.5-14.5); WHITE BLOOD COUNT 8.9 K/uL (4.8-10.8)
[2016-11-04] MEDS: Pantoprazole 40 mg EC Tab PO SCH (09:56)
[2016-11-04] MEDS: Multiple Vitamins Tab PO SCH (09:56)
[2016-11-04] MEDS: diltiaZEM 240 mg/24 Hours CD Cap PO SCH (09:56)
[2016-11-04] MEDS: Enoxaparin 30 mg Syringe SC SCH (09:57)
[2016-11-04] MEDS ORDERED: Potassium Chloride 20 mEq ER Tab PO ONE (10:00)
[2016-11-04] MEDS ORDERED: Oxycodone/Acetaminophen 5/325 mg Tab PO PRN (11:27)
[2016-11-04] MEDS: Potassium Ch 20mEq in D5-1/2NS 1,000 ML IV SCH (14:42)
[2016-11-04 16:55] VITALS: BP 123/75; PULSE 76; RESP 18; TEMP 99.2; O2SAT 99
--- NOTE | 2016-11-04 17:49 | CP.PCM.PN ---
Subjective - Date & Time of Evaluation Date of Evaluation: 11/04/16 Time of Evaluation: 18:00 - Subjective Subjective: Pt states he had bm and passing gas. +BS. Will DC home on tramadol and colace instructed to eat light meals and FU in 2 days.in my office Objective - Vital Signs/Intake and Output Vital Signs (last 24 hours): Temp Pulse Resp BP Pulse Ox 99.2 F 76 18 123/75 99 11/04/16 15:55 11/04/16 15:55 11/04/16 15:55 11/04/16 15:55 11/04/16 15:55 Intake and Output: 11/04/16 11/04/16 06:59 18:59 Intake Total 600 700 Output Total 1025 Balance -425 700 - Medications Medications: Current Medications Diltiazem HCl (Cardizem Cd) 240 mg PO DAILY [facility] Last Admin: 11/04/16 09:56 Dose: 240 mg Docusate Sodium (Colace) 100 mg PO BID [facility] Last Admin: 11/04/16 12:30 Dose: Not Given Enoxaparin Sodium (Lovenox) 30 mg SC 1000,2200 [facility] Last Admin: 11/04/16 09:57 Dose: 30 mg Folic Acid (Folic Acid) 1 mg PO DAILY [facility] Last Admin: 11/04/16 09:56 Dose: 1 mg Hydromorphone HCl (Dilaudid) 1 mg IVP Q4H PRN PRN Reason: breakthrough pain Potassium Chloride/Dextrose/Sod Cl (Potassium Chl 20 Meq In D5-1/2ns) 1,000 mls @ 125 mls/hr IV .Q8H [facility] Last Admin: 11/04/16 14:42 Dose: Not Given Sodium Chloride (Sodium Chloride 0.9%) 1,000 mls @ 75 mls/hr IV .[id number] [facility] Last Admin: 11/04/16 08:45 Dose: Not Given Ketorolac Tromethamine (Toradol) 30 mg IVP Q6 PRN PRN Reason: pain Stop: 11/07/16 12:57 Last Admin: 11/02/16 14:37 Dose: 30 mg Lorazepam (Ativan) 0.5 mg PO Q4 WONG PRN Reason: Taper Stop: 11/07/16 15:44 Last Admin: 11/04/16 16:55 Dose: 0.5 mg Lorazepam (Ativan) 1 mg IVP Q4H PRN PRN Reason: Seizure activity Multivitamins (Hexavitamin) 1 tab PO DAILY [facility] Last Admin: 11/04/16 09:56 Dose: 1 tab Ondansetron HCl (Zofran Inj) 4 mg IVP Q6 PRN PRN Reason: Nausea/Vomiting Oxycodone/Acetaminophen (Percocet 5/325 Mg Tab) 2 tab PO Q4H PRN PRN Reason: Pain, severe (8-10) Stop: 11/07/16 11:28 Last Admin: 11/04/16 16:14 Dose: 2 tab Pantoprazole Sodium (Protonix Ec Tab) 40 mg PO DAILY [facility] Last Admin: 11/04/16 09:56 Dose: 40 mg Thiamine HCl (Vitamin B1 Tab) 100 mg PO DAILY [facility] Last Admin: 11/04/16 09:56 Dose: 100 mg - Labs Labs: 11/04/16 07:03 11/04/16 07:03
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
== END 2016-11-04 20:45 | disposition home or self-care (01) | DRG 148 ==
LOC: C.9S 09:20 → C.6T 19:07
PROVIDERS: ADMIT Surgery; ATTEND Surgery
PROC: 0DBE0ZZ Excision of Large Intestine, Open Approach (ICD-10-PCS; principal; 2016-11-02 10:00)
DX: Z43.3 Encounter for attention to colostomy (principal); R56.9 Unspecified convulsions; I10 Essential (primary) hypertension; K57.32 Diverticulitis of large intestine without perforation or abscess without bleeding; K59.00 Constipation, unspecified; Z96.642 Presence of left artificial hip joint; F10.10 Alcohol abuse, uncomplicated; F17.210 Nicotine dependence, cigarettes, uncomplicated

== ENCOUNTER 2016-11-08 20:21 | Emergency (ER) | payer MEDICAID ==
[2016-11-08] MEDS ORDERED: Naloxone 0.4 mg/ml Inj (Adult) ONE ×2 (20:26→20:27)
[2016-11-08 20:36] VITALS: BMI 30.4
[2016-11-08] MEDS ORDERED: Sodium Chloride 0.9% 1,000 ML IV ONE (20:36)
[2016-11-08] MEDS ORDERED: Naloxone 0.4 mg/ml Inj (Adult) IV ONE (20:37)
--- NOTE | 2016-11-08 20:46 | C.PDOC ---
History Of Present Illness 56 y/o male, BIBA, after patient's called EMS stating patient was "not breathing enough". She reports to EMS pt using heroin, oxycodone, ativan and alcohol today. History of heroin, alcohol, and benzo abuse with many prior evals for overdose of same. Patient with history of recent left colostomy reversal. Patient found at home by paramedics with pinpoint pupils, respiratory suppression, with pulse ox in low 80's. Patient was given Narcan 1mg IV in the field, with mild improvement of pupils and respiratory status, BIBA. Chief Complaint (Nursing): Substance Abuse History Per: Patient History/Exam Limitations: no limitations Onset/Duration Of Symptoms: Days Current Symptoms Are (Timing): Still Present Suicide/Self Injury Attempted (Context): None Modifying Factor(s): Alcohol, Narcotics Recent travel outside of the [place]: No Past Medical History Reviewed: Historical Data, Nursing Documentation, Vital Signs Vital Signs: Last Vital Signs Temp 97.5 F L 11/08/16 20:49 Pulse 104 H 11/09/16 00:15 Resp 45 H 11/09/16 00:15 BP 135/95 H 11/09/16 00:15 Pulse Ox 100 11/09/16 00:15 - Medical History PMH: Anxiety, Arthritis, Bipolar Disorder, Depression, Fractures (left elbow), HTN, Schizophrenia, Chronic Pain (Hip) - [facility] Procedures APPLICATION OF SPLINT (10/17/14) BYPASS SIGMOID COLON TO CUTANEOUS, OPEN APPROACH (06/20/16) CHANGE PACKING MATERIAL ON RIGHT UPPER LEG (06/20/16) DESTRUCTION OF BACK SKIN, EXTERNAL APPROACH (06/20/16) DESTRUCTION OF BACK SKIN, MULTIPLE, EXTERNAL APPROACH (06/20/16) DETOXIFICATION SERVICES FOR SUBSTANCE ABUSE TREATMENT (06/20/16) EXCISION OF BACK SKIN, EXTERNAL APPROACH (06/20/16) EXCISION OF BACK SKIN, EXTERNAL APPROACH, DIAGNOSTIC (06/20/16) EXCISION OF BUTTOCK SKIN, EXTERNAL APPROACH (06/20/16) EXCISION OF LEFT UPPER LEG SKIN, EXTERNAL APPROACH (06/20/16) EXCISION OF RIGHT UPPER LEG SKIN, EXTERNAL APPROACH (06/20/16) GROUP NAIL CUTTER FOR SUBSTANCE ABUSE TREATMENT, PSYCHOEDUCATION (03/31/16) INSERTION OF ENDOTRACHEAL AIRWAY INTO TRACHEA, VIA OPENING (09/26/16) INSERTION OF FEEDING DEVICE INTO STOMACH, PERC APPROACH (09/26/16) INSERTION OF INFUSION DEV INTO SUP VENA CAVA, PERC APPROACH (06/20/16) REPAIR BUTTOCK SKIN, EXTERNAL APPROACH (06/20/16) REPAIR LOWER VEIN, OPEN APPROACH (06/20/16) REPLACE BUTTOCK SKIN W AUTOL SUB, PART THICK, MAILROOM MESSENGER (06/20/16) REPLACE SKIN W PORC LIVR SUB, MAILROOM MESSENGER, NEW TECH 2 (06/20/16) RESPIRATORY VENTILATION, 24-96 CONSECUTIVE HOURS (01/13/16) RESPIRATORY VENTILATION, LESS THAN 24 CONSECUTIVE HOURS (09/26/16) TRANSFER BUTTOCK SKIN, EXTERNAL APPROACH (06/20/16) Family History: States: Unknown Family Hx - Social History Hx Tobacco Use: Yes Hx Alcohol Use: Yes Hx Substance Use: Yes (Alcohol) - Immunization History Hx Tetanus Toxoid Vaccination: No Hx Influenza Vaccination: No Hx Pneumococcal Vaccination: No Review Of Systems Except As Marked, All Systems Reviewed And Found Negative. Constitutional: Negative for: Fever Cardiovascular: Negative for: Chest Pain Respiratory: Negative for: Cough, Shortness of Breath Gastrointestinal: Negative for: Vomiting Skin: Negative for: Rash Physical Exam - Physical Exam Appears: Other (large black male, disheveled, foul smelling, etoh on breath, obtunded but arousable to painful stimulus) Skin: Warm, Dry Head: Atraumatic, Normacephalic Eye(s): bilateral: PERRL, EOMI, Other (pinpoint pupils) Nose: Normal Oral Mucosa: Moist Chest: Symmetrical Cardiovascular: Rhythm Regular, No Murmur Respiratory: Normal Breath Sounds, No Rales, No Rhonchi, No Wheezing Gastrointestinal/Abdominal: Soft, No Tenderness, No Guarding, No Rebound, Other (large surgical wound bandage LLQ c/w colostomy reversal) Extremity: Normal ROM, Capillary Refill (< 2 sec.) ED Course And Treatment - Laboratory Results Result Diagrams: 11/08/16 20:52 11/08/16 20:52 Lab Interpretation: Abnormal (tox + benzo/opiates, etoh 376 H) ECG: Interpreted By Me ECG Rhythm: Sinus Tachycardia ECG Interpretation: Abnormal Rate From EC O2 Sat by Pulse Oximetry: 96 (RA) Pulse Ox Interpretation: Normal - Radiology CXR: Interpreted by Me CXR Interpretation: Yes: No Acute Disease Progress Note: EKG, CxR, bloodwork. Narcan, IVFs given. POC 94 Reevaluation Time: 00:34 Reassessment Condition: Improved Medical Decision Making Medical Decision Making: typical and recurrent polysubstance overdose of heroine, benzo, alcohol and suspected other narcotic pain relievers. 0030: awake, oriented, argumentative, confrontational, belligerant but cooperative Disposition - Disposition Disposition Time: 01:00 Condition: FAIR - Clinical Impression Clinical Impression: Narcotic overdose, Alcohol abuse - Scribe Statement The provider has reviewed the documentation as recorded by the Sabiha Carpenter Provider Attestation: All medical record entries made by the Sabiha were at my direction and personally dictated by me. I have reviewed the chart and agree that the record accurately reflects my personal performance of the history, physical exam, medical decision making, and the department course for this patient. I have also personally directed, reviewed, and agree with the discharge instructions and disposition. Physician Patient Turnover Patient Signed Over To: Berenice Kim Handoff Comments: continue to follow to sobriety- dispo in AM
[2016-11-08 20:49] VITALS: TEMP 97.5
--- NOTE | 2016-11-08 20:54 | C.PDOC ---
Chief Complaint (Nursing): Substance Abuse Past Medical History Vital Signs: Last Vital Signs Temp Pulse 98 H 11/08/16 20:28 Resp 36 H 11/08/16 20:28 BP 143/91 H 11/08/16 20:28 Pulse Ox 96 11/08/16 20:28 - Medical History PMH: Anxiety, Arthritis, Bipolar Disorder, Depression, Fractures (left elbow), HTN, Schizophrenia, Chronic Pain (Hip) Denies: Chronic Kidney Disease - [facility] Procedures APPLICATION OF SPLINT (10/17/14) BYPASS SIGMOID COLON TO CUTANEOUS, OPEN APPROACH (06/20/16) CHANGE PACKING MATERIAL ON RIGHT UPPER LEG (06/20/16) DESTRUCTION OF BACK SKIN, EXTERNAL APPROACH (06/20/16) DESTRUCTION OF BACK SKIN, MULTIPLE, EXTERNAL APPROACH (06/20/16) DETOXIFICATION SERVICES FOR SUBSTANCE ABUSE TREATMENT (06/20/16) EXCISION OF BACK SKIN, EXTERNAL APPROACH (06/20/16) EXCISION OF BACK SKIN, EXTERNAL APPROACH, DIAGNOSTIC (06/20/16) EXCISION OF BUTTOCK SKIN, EXTERNAL APPROACH (06/20/16) EXCISION OF LEFT UPPER LEG SKIN, EXTERNAL APPROACH (06/20/16) EXCISION OF RIGHT UPPER LEG SKIN, EXTERNAL APPROACH (06/20/16) GROUP WARRANT SERVER FOR SUBSTANCE ABUSE TREATMENT, PSYCHOEDUCATION (03/31/16) INSERTION OF ENDOTRACHEAL AIRWAY INTO TRACHEA, VIA OPENING (09/26/16) INSERTION OF FEEDING DEVICE INTO STOMACH, PERC APPROACH (09/26/16) INSERTION OF INFUSION DEV INTO SUP VENA CAVA, PERC APPROACH (06/20/16) REPAIR BUTTOCK SKIN, EXTERNAL APPROACH (06/20/16) REPAIR LOWER VEIN, OPEN APPROACH (06/20/16) REPLACE BUTTOCK SKIN W AUTOL SUB, PART THICK, DIRECTOR TRAFFIC AND PLANNING (06/20/16) REPLACE SKIN W PORC LIVR SUB, DIRECTOR TRAFFIC AND PLANNING, NEW TECH 2 (06/20/16) RESPIRATORY VENTILATION, 24-96 CONSECUTIVE HOURS (01/13/16) RESPIRATORY VENTILATION, LESS THAN 24 CONSECUTIVE HOURS (09/26/16) TRANSFER BUTTOCK SKIN, EXTERNAL APPROACH (06/20/16) Family History: States: Unknown Family Hx - Social History Hx Tobacco Use: Yes Hx Alcohol Use: Yes Hx Substance Use: Yes (Alcohol) - Immunization History Hx Tetanus Toxoid Vaccination: No Hx Influenza Vaccination: No Hx Pneumococcal Vaccination: No ED Course And Treatment O2 Sat by Pulse Oximetry: 96
[2016-11-08 20:58] LABS: SQUAMOUS EPITHIAL < 1 /hpf (0-5); URINE BILIRUBIN NEGATIVE (NEGATIVE); URINE BLOOD 1+ (NEGATIVE); URINE CLARITY Clear (Clear); URINE COLOR Straw (YELLOW); URINE GLUCOSE (UA) NORMAL (Normal); URINE LEUKOCYTE ESTERASE NEG Leu/uL (Negative); URINE NITRATE NEGATIVE (NEGATIVE); URINE PROTEIN NEGATIVE (NEGATIVE); URINE UROBILINOGEN NORMAL mg/dL (0.2-1.0)
[2016-11-08] MEDS ORDERED: Sodium Chloride 0.9% 1,000 ML ONE (20:58)
[2016-11-08 21:01] LABS: BASO % 0.6 % (0.0-2.0); EOS # 0.2 K/uL (0.0-0.7); EOS % 2.9 % (0.0-4.0); HEMOGLOBIN 14.5 g/dL (12.0-18.0); LYMPH % 41.1 % (20.0-40.0); MEAN CELL VOLUME 91.1 fL (80.0-94.0); MEAN CORPUSCULAR HEMOGLOBIN 29.8 pg (27.0-31.0); MEAN CORPUSCULAR HGB CONC 32.7 g/dL (33.0-37.0); MEAN PLATELET VOLUME 6.3 fL (7.2-11.7); MONO # 0.7 K/uL (0.0-0.8); MONO % 10.1 % (0.0-10.0); NEUT # 3.3 K/uL (1.8-7.0); NEUT % 45.3 % (50.0-75.0); NRBC % 0.2 % (0.0-2.0); RBC 4.84 Mil/uL (4.40-5.90); RED CELL DISTRIBUTION WIDTH 13.8 % (11.5-14.5); WHITE BLOOD COUNT 7.2 K/uL (4.8-10.8)
[2016-11-08 21:05] LABS: ALBUMIN 4.2 g/dL (3.5-5.0)
[2016-11-08 21:08] LABS: ALB/GLOB RATIO 1.1 (1.0-2.1); AST/SGOT 163 U/L (17-59); BLOOD UREA NITROGEN 9 mg/dL (9-20); GFR AFRICAN-AMERICAN > 60; GFR NON-AFRICAN AMERICAN > 60
[2016-11-08 21:09] LABS: ALT/SGPT 164 U/L (21-72); CALCIUM 9.3 mg/dl (8.6-10.4)
[2016-11-08 21:10] LABS: BARBITURATES, UR NEGATIVE (NEGATIVE); BENZODIAZEPINES, UR POSITIVE (NEGATIVE)
[2016-11-08 21:13] LABS: OPIATES, UR POSITIVE (NEGATIVE)
[2016-11-08 21:14] LABS: PHENCYCLIDINE, UR NEGATIVE (NEGATIVE)
[2016-11-08 21:15] LABS: SALICYLATE < 1.0 mg/dL 1
[2016-11-08 21:25] LABS: ACETAMINOPHEN < 10.0 ug/mL (10.0-30.0)
[2016-11-08] MEDS ORDERED: Bacitracin 500 Units/gm Oint Foilpak UD ONE (22:46)
[2016-11-09 03:28] VITALS: BP 146/95; PULSE 105; RESP 19; O2SAT 99
--- NOTE | 2016-11-09 11:18 | RAD ---
HISTORY: Overdosed COMPARISON: Chest x-ray performed 10/25/16 TECHNIQUE: Chest, one view. FINDINGS: LUNGS: No focal consolidation. Please note that chest x-ray has limited sensitivity for the detection of pulmonary masses. PLEURA: No significant pleural effusion identified. No definite pneumothorax . CARDIOVASCULAR: The cardiomediastinal silhouette appears within normal limits of size. OSSEOUS STRUCTURES: No acute osseous abnormality identified. VISUALIZED UPPER ABDOMEN: Mild elevation of the right hemidiaphragm. OTHER FINDINGS: None. IMPRESSION: No focal consolidation, significant pleural effusion, or definite pneumothorax identified.
--- NOTE | 2016-11-09 12:50 | CARD ---
APPROVED REPORT EKG Measurement Heart [id number] MD [id number] <Conclusion> Sinus tachycardia Otherwise normal ECG
== END 2016-11-09 04:58 | disposition home or self-care (01) ==
LOC: C.ER 20:21
DX: T40.1X1A Poisoning by heroin, accidental (unintentional), initial encounter (principal); T42.4X1A Poisoning by benzodiazepines, accidental (unintentional), initial encounter; F10.10 Alcohol abuse, uncomplicated; Y90.8 Blood alcohol level of 240 mg/100 ml or more
CPT/HCPCS: 71010; 80053; 80320; 80324; 80329; 80345; 80346; 80349; 80353; 80358; 80361; 81001; 82140; 82948; 83880; 83992; 85025; 93005; 96361; 96374; 99285; J2310; J7040